=== PATIENT | male | born 1970 | race African-American/Black ===

== ENCOUNTER → 2017-01-03 | Outpatient (CLI) | payer OTHER ==
[~2017-01-03] MED LIST: BUSP15TA60 PO; HYDR1CAP2 PO; [UNRECOGNIZED DRUG - CODE] IM
[2017-01-04 08:19] LABS: VITAMIN D 25-HYDROXY (TOTAL) 9 ng/mL (30-100)
== END ==
LOC: LAB 13:14
PROVIDERS: ATTEND Psychiatry & Neurology Neurology
DX: G35 Multiple sclerosis (principal)
CPT/HCPCS: 36415; 82306; 82607

== ENCOUNTER 2018-02-01 12:47 | Emergency (ER) | payer OTHER ==
[~2018-02-01] VITALS: Ht 170.2 cm; Wt 68.0 kg
[2018-02-01 12:53] VITALS: BP 127/97
[2018-02-01 13:50] LABS: BASOPHILS % (AUTO) 0 % (0-10); EOSINOPHILS % (AUTO) 1 % (0-10); HEMATOCRIT 43 % (40-54); HEMOGLOBIN 14.7 G/DL (13.3-17.7); LYMPHOCYTES # (AUTO) 1.4 X 10^3 (1.0-4.0); LYMPHOCYTES % (AUTO) 40 % (12-44); MEAN CORPUSCULAR HEMOGLOBIN 31 PG (25-34); MEAN CORPUSCULAR HGB CONC 35 G/DL (32-36); MEAN CORPUSCULAR VOLUME 88 FL (80-99); MEAN PLATELET VOLUME 11.1 FL (7.4-10.4); MONOCYTES # (AUTO) 0.4 X 10^3 (0.0-1.0); MONOCYTES % (AUTO) 11 % (0-12); NEUTROPHILS # (AUTO) 1.7 X 10^3 (1.8-7.8); NEUTROPHILS % (AUTO) 48 % (42-75); PLATELET COUNT 164 10^3/uL (130-400); RED BLOOD COUNT 4.82 10^6/uL (4.35-5.85); RED CELL DISTRIBUTION WIDTH 12.6 % (10.0-14.5); WHITE BLOOD COUNT 3.6 10^3/uL (4.3-11.0)
--- NOTE | 2018-02-01 14:05 | ED General ---
General Chief Complaint: General Problems/Pain Stated Complaint: LIGHT-HEADED,DIZZY,NAUSEA Nursing Triage Note: TO ROOM AMB WITH OUT PROBLEM C/O BEING DIZZY FOR 1 WEEK AND NAUSEA,AND NUMBNES IN L HAND ON AND OFF FOR LAST YEAR. Nursing Sepsis Screen: No Definite Risk Source of Information: Patient Exam Limitations: No Limitations History of Present Illness Date Seen by Provider: Feb 01, 2018 Time Seen by Provider: 14:01 Initial Comments The patient is a 47-year-old black male who presents today with complaints of lightheadedness and dizziness and nausea. He believes his vision is somewhat effective as well. He is also troubled by numbness in the left arm. He has been treated for multiple sclerosis for several years. He takes injectable interferon on a weekly basis. He reports that when he is having more difficulty he tends to have more numbness and dysfunction in the left arm. He is also having some difficulty with vision at this time. He walks independently but his cemetery counselor states that he probably should use a walker for safety. He gets a portion of his treatment from [facility] [place] [facility]. Timing/Duration: 1 Week Associated Systoms: Headaches, Nausea/Vomiting, Weakness Allergies and Home Medications Allergies Coded Allergies: Omeprazole (Verified Allergy, Unknown, 12/24/05) Home Medications Buspirone HCl 15 Mg Tablet, 15 MG PO BID, (Reported) Interferon Beta-1A/Albumin 30 Mcg Kit, 30 MCG IM WEEK, (Reported) Patient Home Medication List Home Medication List Reviewed: Yes Review of Systems Constitutional: see HPI EENTM: blurred vision Respiratory: no symptoms reported Cardiovascular: no symptoms reported Gastrointestinal: no symptoms reported Genitourinary: no symptoms reported Musculoskeletal: muscle weakness Skin: no symptoms reported Psychiatric/Neurological: Pre-Existing Deficit Hematologic/Lymphatic: No Symptoms Reported Immunological/Allergic: no symptoms reported Past Sizzlzw-Crhpre-Atvrwc Hx Patient Social History Alcohol Use: Denies Use Recreational Drug Use: Yes (POT) Smoking Status: Never a Smoker Recent Foreign Travel: No Contact w/Someone Who Travel: No Recent Infectious Disease Expo: No Recent Hopitalizations: No Past Medical History Surgeries: No Respiratory: No Cardiac: No Neurological: Yes Multiple Sclerosis Reproductive Disorders: No Gastrointestinal: No Musculoskeletal: Yes Endocrine: No Cancer: No Psychosocial: Yes (MOOD DISORDER. ) Integumentary: No Blood Disorders: No Physical Exam Vital Signs Vital Signs - First Documented 02/01/18 12:53 Temp 97.2 Pulse 78 Resp 18 B/P (MAP) 127/97 (107) Pulse Ox 99 O2 Delivery Room Air Capillary Refill : Less Than 3 Seconds General Appearance: No Apparent Distress, WD/WN Eyes: Bilateral Eye Normal Inspection HEENT: Normal ENT Inspection Neck: Full Range of Motion, Normal Inspection, Non Tender, Supple Respiratory: Chest Non Tender, Lungs Clear, Normal Breath Sounds, No Accessory Muscle Use, No Respiratory Distress Cardiovascular: Regular Rate, Rhythm, No Edema, No Gallop, No JVD, No Murmur, Normal Peripheral Pulses Gastrointestinal: Normal Bowel Sounds, No Organomegaly, No Pulsatile Mass, Non Tender, Soft Back: Normal Inspection Neurologic/Psychiatric: Alert, Oriented x3, progressive assembler and fitter II-XII Norm as Tested Skin: Normal Color, Warm/Dry Comments Computer Support Analyst is 2+ and equal bilaterally. Alternating finger to thumb movements were equal bilaterally. Patellar reflexes were absent. Progress/Results/Core Measures Suspected Sepsis Recent Fever Within 48 Hours: No Infection Criteria Present: None New/Unexplained Altered Menta: No Sepsis Screen: No Definite Risk SIRS Temperature:97.2 Pulse: 78 Respiratory Rate: 18 Laboratory Tests 02/01/18 13:41: White Blood Count 3.6L Blood Pressure 127 /97 Mean: 107 Laboratory Tests 02/01/18 13:41: Creatinine 0.99, Platelet Count 164, Total Bilirubin 0.8 Results/Orders Lab Results Laboratory Tests Test 02/01/18 13:41 02/01/18 14:41 Range/Units White Blood Count 3.6 L 4.3-11.0 10^3/uL Red Blood Count 4.82 4.35-5.85 10^6/uL Hemoglobin 14.7 13.3-17.7 G/DL Hematocrit 43 40-54 % Mean Corpuscular Volume 88 80-99 FL Mean Corpuscular Hemoglobin 31 25-34 PG Mean Corpuscular Hemoglobin Concent 35 32-36 G/DL Red Cell Distribution Width 12.6 10.0-14.5 % Platelet Count 164 130-400 10^3/uL Mean Platelet Volume 11.1 H 7.4-10.4 FL Neutrophils (%) (Auto) 48 42-75 % Lymphocytes (%) (Auto) 40 12-44 % Monocytes (%) (Auto) 11 0-12 % Eosinophils (%) (Auto) 1 0-10 % Basophils (%) (Auto) 0 0-10 % Neutrophils # (Auto) 1.7 L 1.8-7.8 X 10^3 Lymphocytes # (Auto) 1.4 1.0-4.0 X 10^3 Monocytes # (Auto) 0.4 0.0-1.0 X 10^3 Eosinophils # (Auto) 0.0 0.0-0.3 10^3/uL Basophils # (Auto) 0.0 0.0-0.1 10^3/uL Sodium Level 140 135-145 MMOL/L Potassium Level 3.9 3.6-5.0 MMOL/L Chloride Level 107 98-107 MMOL/L Carbon Dioxide Level 24 21-32 MMOL/L Anion Gap 9 5-14 MMOL/L Blood Urea Nitrogen 11 7-18 MG/DL Creatinine 0.99 0.60-1.30 MG/DL Estimat Glomerular Filtration Rate > 60 BUN/Creatinine Ratio 11 Glucose Level 97 70-105 MG/DL Calcium Level 9.1 8.5-10.1 MG/DL Total Bilirubin 0.8 0.1-1.0 MG/DL Aspartate Amino Transf (AST/SGOT) 11 5-34 U/L Alanine Aminotransferase (ALT/SGPT) 6 0-55 U/L Alkaline Phosphatase 66 40-136 U/L Total Protein 7.1 6.4-8.2 GM/DL Albumin 4.2 3.2-4.5 GM/DL Serum Alcohol < 10 <10 MG/DL Urine Color YELLOW Urine Clarity CLEAR Urine pH 6 5-9 Urine Specific [place] 1.020 1.016-1.022 Urine Protein 1+ H NEGATIVE Urine Glucose (UA) NEGATIVE NEGATIVE Urine Ketones NEGATIVE NEGATIVE Urine Nitrite NEGATIVE NEGATIVE Urine Bilirubin NEGATIVE NEGATIVE Urine Urobilinogen 4 H NORMAL MG/DL Urine Leukocyte Esterase 1+ H NEGATIVE Urine RBC (Auto) NEGATIVE NEGATIVE Urine RBC RARE /HPF Urine WBC 0-2 /HPF Urine Squamous Epithelial Cells RARE /HPF Urine Renal Epithelial Cells NONE /HPF Urine Crystals NONE /LPF Urine Bacteria NEGATIVE /HPF Urine Casts PRESENT /LPF Urine Hyaline Casts RARE /LPF Urine Mucus MODERATE H /LPF Urine Culture Indicated NO Urine Opiates Screen NEGATIVE NEGATIVE Urine Oxycodone Screen NEGATIVE NEGATIVE Urine Methadone Screen NEGATIVE NEGATIVE Urine Propoxyphene Screen NEGATIVE NEGATIVE Urine Barbiturates Screen NEGATIVE NEGATIVE Ur Tricyclic Antidepressants Screen NEGATIVE NEGATIVE Urine Phencyclidine Screen NEGATIVE NEGATIVE Urine Amphetamines Screen NEGATIVE NEGATIVE Urine Methamphetamines Screen NEGATIVE NEGATIVE Urine Benzodiazepines Screen NEGATIVE NEGATIVE Urine Cocaine Screen NEGATIVE NEGATIVE Urine Cannabinoids Screen POSITIVE H NEGATIVE My Orders Orders - MAULIK HILLIARD MD Alcohol (02/01/18 13:00) Cbc With Automated Diff (02/01/18 13:00) Comprehensive Metabolic Panel (02/01/18 13:00) Drug Screen Stat (Urine) (02/01/18 13:00) Ua Culture If Indicated (02/01/18 13:00) Vital Signs/I&O 02/01/18 12:53 Temp 97.2 Pulse 78 Resp 18 B/P (MAP) 127/97 (107) Pulse Ox 99 O2 Delivery Room Air Capillary Refill : Less Than 3 Seconds Blood Pressure Mean: 107 Departure Communication (Admissions) Lab studies looked to be reasonably normal. I believe this to be a flare of his multiple sclerosis. Impression Primary Impression: flare of multiple sclerosis Disposition: HOME, SELF-CARE Condition: Stable/Unchanged Departure-Patient Inst. Decision time for Depature: 15:26 Referrals: NO,LOCAL PHYSICIAN (PCP) Primary Care Physician Add. Discharge Instructions: All discharge instructions reviewed with patient and/or family. Voiced understanding. Use Zofran as needed for nausea. Continue to observe symptoms. If no improvement see your provider. Scripts Ondansetron (Zofran Odt) 8 Mg Tab.rapdis 8 MG PO 4 times a day PRN for nausea, #10 TAB Prov: MAULIK HILLIARD MD 02/01/18 MAULIK HILLIARD MD Feb 01, 2018 14:05
[2018-02-01 14:12] LABS: ALANINE AMINOTRANSFERASE 6 U/L (0-55); ALBUMIN 4.2 GM/DL (3.2-4.5); ALKALINE PHOSPHATASE 66 U/L (40-136); BILIRUBIN,TOTAL 0.8 MG/DL (0.1-1.0); BUN/CREATININE RATIO 11; CALCIUM 9.1 MG/DL (8.5-10.1); CARBON DIOXIDE 24 MMOL/L (21-32); CHLORIDE 107 MMOL/L (98-107); CREATININE SERUM 0.99 MG/DL (0.60-1.30); GFR ESTIMATED > 60; GLUCOSE 97 MG/DL (70-105); POTASSIUM 3.9 MMOL/L (3.6-5.0); SODIUM 140 MMOL/L (135-145); TOTAL PROTEIN 7.1 GM/DL (6.4-8.2)
[2018-02-01 14:53] LABS: BILIRUBIN,URINE NEGATIVE (NEGATIVE); CLARITY,URINE CLEAR; COLOR,URINE YELLOW; GLUCOSE, URINE (UA) NEGATIVE (NEGATIVE); KETONES,URINE NEGATIVE (NEGATIVE); LEUKOCYTE ESTERASE ,URINE 1+ (NEGATIVE); NITRITE,URINE NEGATIVE (NEGATIVE); PH,URINE 6 (5-9); PROTEIN,URINE 1+ (NEGATIVE); UROBILINOGEN,URINE 4 MG/DL (NORMAL)
[2018-02-01 15:17] LABS: AMPHETAMINE SCREEN, URINE NEGATIVE (NEGATIVE); BACTERIA,URINE NEGATIVE /HPF; BARBITURATE SCREEN URINE NEGATIVE (NEGATIVE); BENZODIAZEPINES SCREEN URINE NEGATIVE (NEGATIVE); CANNABINOID SCREEN, URINE POSITIVE (NEGATIVE); COCAINE SCREEN URINE NEGATIVE (NEGATIVE); METHADONE STAT NEGATIVE (NEGATIVE); METHAMPHETAMINE SCREEN URINE S NEGATIVE (NEGATIVE); OPIATE SCREEN URINE NEGATIVE (NEGATIVE); OXYCODONE STAT NEGATIVE (NEGATIVE); PROPOXYPHENE STAT NEGATIVE (NEGATIVE); RBC,URINE RARE /HPF; TRICYCLIC ANTIDEPRESSANTS SCRE NEGATIVE (NEGATIVE); WBC,URINE 0-2 /HPF
[2018-02-01 15:18] LABS: HYALINE CASTS, URINE RARE /LPF; SQUAMOUS EPITHELIAL CELL,UR RARE /HPF
[2018-02-01] MEDS ORDERED: ONDA8TAB9 PO (15:28)
== END 2018-02-01 15:42 | disposition home or self-care (01) ==
LOC: EDUNIT# 12:47 → ER 12:50
DX: G35 Multiple sclerosis (principal); F99 Mental disorder, not otherwise specified; F12.90 Cannabis use, unspecified, uncomplicated; Z88.8 Allergy status to other drugs, medicaments and biological substances
CPT/HCPCS: 36415; 80053; 80306; 80320; 81000; 85025; 99282

== ENCOUNTER 2020-09-15 15:09 | Emergency (ER) | payer OTHER ==
[~2020-09-15] VITALS: Ht 170.2 cm; Wt 81.8 kg
[~2020-09-15 15:09] MED LIST changes: +BUTA1CAP45 PO; +MECL-149 PO; +ONDA4TAB8 PO; +ONDA8TAB9 PO; +PRD10T PO; +SCOP1PAT11 TD
--- NOTE | 2020-09-15 15:16 | ED Fall/Injury ---
General Stated Complaint: FALL Source: patient Exam Limitations: no limitations History of Present Illness Date Seen by Provider: Sep 15, 2020 Time Seen by Provider: 15:16 Initial Comments 49-year-old male presents following a fall. Patient fell hitting the road and had a syncope episode. He has a small abrasion/laceration on his posterior scalp. He has unknown time of loss of consciousness. Patient has a history of MS, admits to being noncompliant with medication with frequent bouts of dizziness. Patient reports he got dizzy before he fell. He denies any known chest pain, shortness of breath prior to the fall. No reports of fevers chills nausea or vomiting. Patient denies any other injury or pain. Patient had c- collar placed by EMS prior to arrival. He denies neck pain. Allergies and Home Medications Allergies Coded Allergies: omeprazole (Verified Allergy, Unknown, 12/24/05) Home Medications Buspirone HCl 15 Mg Tablet, 15 MG PO BID, (Reported) Butalb/Acetaminophen/Caffeine 1 Each Capsule, 1-2 EACH PO Q6H PRN for HEADACHE Prescribed by: MARIO GALARZA on 02/14/181953 Interferon Beta-1A/Albumin 30 Mcg Kit, 30 MCG IM WEEK, (Reported) Meclizine HCl 25 Mg Tablet, 25-50 MG PO Q6H Prescribed by: MARIO GALARZA on 02/14/181953 Ondansetron 8 Mg Tab.rapdis, 8 MG PO 4 times a day PRN for nausea Prescribed by: MAULIK HILLIARD on 02/01/18 1528 Ondansetron 4 Mg Tab.rapdis, 4 MG PO Q4H Prescribed by: MARIO GALARZA on 02/14/181953 Prednisone 10 Mg Tab, 40 MG PO DAILY Prescribed by: MARIO GALARZA on 02/14/181953 Scopolamine 1 Each Patch.td72, 1 EACH TD Q72 HOURS Prescribed by: MARIO GALARZA on 02/14/181953 Patient Home Medication List Home Medication List Reviewed: Yes (Frequent scopolamine which is another) Review of Systems Review of Systems Constitutional: No chills, No fever Eyes: Denies Blurred Vision, Denies Decreased Acuity Ears, Nose, Mouth, Throat: denies ear pain, denies throat pain Respiratory: No cough, No short of breath, No wheezing Cardiovascular: No chest pain, No palpitations Gastrointestinal: No abdominal pain, No diarrhea, No nausea, No vomiting Genitourinary: no symptoms reported Musculoskeletal: back pain Skin: see HPI Psychiatric/Neurological: No Symptoms Reported Past Alrkxpt-Tjonjp-Vsfgme Hx Past Med/Social Hx: Reviewed Nursing Past Med/Soc Hx Patient Social History Drug of Choice: THC 2nd Hand Smoke Exposure: Yes Recent Hopitalizations: No Past Medical History Surgeries: No Respiratory: No Cardiac: No Neurological: Yes Multiple Sclerosis Reproductive Disorders: No Gastrointestinal: No Musculoskeletal: Yes Endocrine: No HEENT: No (GLASSES) Cancer: No Psychosocial: Yes (MOOD DISORDER. ) Integumentary: No Blood Disorders: No Physical Exam Vital Signs Vital Signs - First Documented 09/15/20 15:12 Temp 36.6 Pulse 61 Resp 16 B/P (MAP) 153/124 (134) Pulse Ox 100 O2 Delivery Room Air Capillary Refill : Height, Weight, BMI Height: 5'7.00" Weight: 175lbs. oz. 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 nml as tested, no motor/sensory deficits, alert, normal mood/affect, oriented x 3 Skin: other (Small abrasion/laceration posterior scalp) [place] Coma Score Best Eye Response: (4) Open Spontaneously Best Verbal Response: (5) Oriented Best Motor Response: (6) Obeys Commands Progress/Results/Core Measures Results/Orders Lab Results Laboratory Tests Test 09/15/20 15:20 Range/Units White Blood Count 4.6 4.3-11.0 10^3/uL Red Blood Count 4.66 4.30-5.52 10^6/uL Hemoglobin 14.0 13.3-17.7 g/dL Hematocrit 42 40-54 % Mean Corpuscular Volume 90 80-99 fL Mean Corpuscular Hemoglobin 30 25-34 pg Mean Corpuscular Hemoglobin Concent 33 32-36 g/dL Red Cell Distribution Width 12.7 10.0-14.5 % Platelet Count 170 130-400 10^3/uL Mean Platelet Volume 11.1 9.0-12.2 fL Immature Granulocyte % (Auto) 0 % Neutrophils (%) (Auto) 54 42-75 % Lymphocytes (%) (Auto) 34 12-44 % Monocytes (%) (Auto) 11 0-12 % Eosinophils (%) (Auto) 0 0-10 % Basophils (%) (Auto) 0 0-10 % Neutrophils # (Auto) 2.5 1.8-7.8 10^3/uL Lymphocytes # (Auto) 1.6 1.0-4.0 10^3/uL Monocytes # (Auto) 0.5 0.0-1.0 10^3/uL Eosinophils # (Auto) 0.0 0.0-0.3 10^3/uL Basophils # (Auto) 0.0 0.0-0.1 10^3/uL Immature Granulocyte # (Auto) 0.0 0.0-0.1 10^3/uL Sodium Level 138 135-145 MMOL/L Potassium Level 4.3 3.6-5.0 MMOL/L Chloride Level 103 98-107 MMOL/L Carbon Dioxide Level 26 21-32 MMOL/L Anion Gap 9 5-14 MMOL/L Blood Urea Nitrogen 11 7-18 MG/DL Creatinine 1.06 0.60-1.30 MG/DL Estimat Glomerular Filtration Rate > 60 BUN/Creatinine Ratio 10 Glucose Level 91 70-105 MG/DL Calcium Level 8.9 8.5-10.1 MG/DL Corrected Calcium 8.8 8.5-10.1 MG/DL Total Bilirubin 0.5 0.1-1.0 MG/DL Aspartate Amino Transf (AST/SGOT) 15 5-34 U/L Alanine Aminotransferase (ALT/SGPT) 8 0-55 U/L Alkaline Phosphatase 69 40-136 U/L Troponin I < 0.028 <0.028 NG/ML Total Protein 7.1 6.4-8.2 GM/DL Albumin 4.1 3.2-4.5 GM/DL My Orders Orders - MAURICE,JAZLYN L DO Ct Head/Cervical Spine Wo (09/15/20 15:16) Dipht,Pertuss(Acell),Tet Adult (Boostrix (09/15/20 15:30) Ekg Tracing (1/25/21 15:16) Monitor-Rhythm Ecg Trace Only (09/15/20 15:16) Cbc With Automated Diff (09/15/20 15:16) Comprehensive Metabolic Panel (09/15/20 15:16) Troponin I (09/15/20 15:16) Medications Given in ED Current Medications Medications Dose Ordered Sig/Farhad Route Start Time Stop Time Status Last Admin Dose Admin Diphtheria/ Tetanus/Acell Pertussis 0.5 ml ONCE ONCE IM 09/15/20 15:30 09/15/20 15:31 DC 09/15/20 16:36 0.5 ML Vital Signs/I&O 09/15/20 09/15/20 15:12 15:12 Temp 36.6 36.6 Pulse 61 61 Resp 16 16 B/P (MAP) 153/124 (134) Pulse Ox 100 100 O2 Delivery Room Air Room Air Progress Progress Note : Time: 16:44 Progress Note Patient with known disease Vera's with occasional falls from his MS that he does not treat. When asked why he does not treat it he states because he does not like shots. Patient likely had a fall given a brief loss of consciousness right after his fall. CT head and cervical spine were negative. C-spine was cleared following CT that was negative with no pain with palpation. Patient to be discharged home. Recommended he start trying to take better care of his MS. Patient stable at discharge Initial ECG Impression Date: Sep 15, 2020 Initial ECG Impression Time: 15:27 Initial ECG Rate: 67 Initial ECG Rhythm: Normal Sinus Initial ECG Intervals: Normal Initial ECG Impression: Normal Comment no acute abnormalities Departure Impression Primary Impression: Head injury, acute, with loss of consciousness Qualified Codes: S06.9X9A - Unspecified intracranial injury with loss of consciousness of unspecified duration, initial encounter Disposition: 01 HOME, SELF-CARE Condition: Stable Departure-Patient Inst. Referrals: NO,LOCAL PHYSICIAN (PCP/Family) Primary Care Physician Patient Instructions: Head Injury Observation (DC), Minor Head Injury, Adult ED Add. Discharge Instructions: Tylenol or ibuprofen as needed for pain Follow-up with your primary care provider for continued management of your MS JAZLYN MAURICE DO Sep 15, 2020 15:16
[2020-09-15 15:28] LABS: BASOPHILS % (AUTO) 0 % (0-10); EOSINOPHILS % (AUTO) 0 % (0-10); HEMATOCRIT 42 % (40-54); LYMPHOCYTES # (AUTO) 1.6 10^3/uL (1.0-4.0); LYMPHOCYTES % (AUTO) 34 % (12-44); MEAN CORPUSCULAR HEMOGLOBIN 30 pg (25-34); MEAN CORPUSCULAR HGB CONC 33 g/dL (32-36); MEAN CORPUSCULAR VOLUME 90 fL (80-99); MEAN PLATELET VOLUME 11.1 fL (9.0-12.2); MONOCYTES # (AUTO) 0.5 10^3/uL (0.0-1.0); MONOCYTES % (AUTO) 11 % (0-12); NEUTROPHILS # (AUTO) 2.5 10^3/uL (1.8-7.8); NEUTROPHILS % (AUTO) 54 % (42-75); PLATELET COUNT 170 10^3/uL (130-400); WHITE BLOOD COUNT 4.6 10^3/uL (4.3-11.0)
[2020-09-15] MEDS ORDERED: TETANUS,DIPTH,PERTUSS P/F (BOOSTRIX) 0.5 ML VIAL IM ONE (15:30)
[2020-09-15 15:38] LABS: ALBUMIN 4.1 GM/DL (3.2-4.5); CHLORIDE 103 MMOL/L (98-107); POTASSIUM 4.3 MMOL/L (3.6-5.0); SODIUM 138 MMOL/L (135-145)
[2020-09-15 15:39] LABS: CALCIUM 8.9 MG/DL (8.5-10.1)
[2020-09-15 15:40] LABS: GLUCOSE 91 MG/DL (70-105)
[2020-09-15 15:41] LABS: TOTAL PROTEIN 7.1 GM/DL (6.4-8.2)
[2020-09-15 15:42] LABS: BILIRUBIN,TOTAL 0.5 MG/DL (0.1-1.0); CARBON DIOXIDE 26 MMOL/L (21-32)
[2020-09-15 15:44] LABS: ALKALINE PHOSPHATASE 69 U/L (40-136); CREATININE SERUM 1.06 MG/DL (0.60-1.30); GFR ESTIMATED > 60
[2020-09-15 15:45] LABS: BUN/CREATININE RATIO 10
[2020-09-15 15:47] LABS: ALANINE AMINOTRANSFERASE 8 U/L (0-55)
--- NOTE | 2020-09-15 16:00 | Diagnostic Imaging Report ---
PROCEDURE: CT head and CT cervical spine without contrast. TECHNIQUE: Multiple contiguous axial images were obtained through the brain and cervical spine without the use of intravenous contrast. Sagittal and coronal reformations through the cervical spine were then performed. Auto Exposure Controls were utilized during the CT exam to meet ALARA standards for radiation dose reduction. DATE: September 15, 2020. COMPARISON: CT head February 14, 2018. MRI brain February 12, 2011. MR cervical spine February 12, 2011. INDICATION: 49-year-old male, dizziness, and syncope. Hit back of head. Head and neck pain. FINDINGS: There is proportional prominence of the ventricles and additional CSF spaces, consistent with moderate cerebral volume loss. There is no mass effect or midline shift. There is no acute intracranial hemorrhage. There is no abnormal extra-axial fluid collection. There is a very small amount of fluid layering in the left maxillary sinus. There is ankylosis across the left and right C2-C3 facet articulations. There is no identified facet joint subluxation or dislocation. There is no asymmetric widening of the cervical disc spaces. There is no prominent prevertebral soft tissue swelling. There is no identified acute fracture of the cervical spine. The cervical disc heights are well preserved. CT is limited for assessment of disc pathology as well as additional nonbony causes of pathology in the spinal canal. There is no pronounced facet arthropathy. The visualized portions of the lung apices are clear. IMPRESSION: 1. No identified acute intracranial abnormality. 2. Moderate cerebral volume loss. 3. Very small amount of fluid layering in the left maxillary sinus. Recommend correlation clinically for possibility of acute sinusitis. 4. No identified acute abnormality of the cervical spine. Dictated by: Dictated on workstation # [id number]
[2020-09-15 16:55] VITALS: BP 142/98
== END 2020-09-15 16:55 | disposition home or self-care (01) ==
LOC: EDUNIT# 15:09 → ER 15:12
DX: S01.01XA Laceration without foreign body of scalp, initial encounter (principal); S06.9X9A Unspecified intracranial injury with loss of consciousness of unspecified duration, initial encounter; Z77.22 Contact with and (suspected) exposure to environmental tobacco smoke (acute) (chronic); Z23 Encounter for immunization; Z88.8 Allergy status to other drugs, medicaments and biological substances; Z79.52 Long term (current) use of systemic steroids; W22.8XXA Striking against or struck by other objects, initial encounter
CPT/HCPCS: 36415; 70450; 72125; 80053; 84484; 85025; 90715; 93005; 93041

== ENCOUNTER 2022-01-31 08:32 | Inpatient (IN) | payer OTHER ==
[~2022-01-31] VITALS: Ht 170.1 cm; Wt 103.0 kg
[~2022-01-31 08:32] MED LIST changes: +SCOP1PAT10 TD; -SCOP1PAT11 TD
--- NOTE | 2022-01-31 08:42 | ED General ---
General Chief Complaint: General Problems/Pain Stated Complaint: TROUBLES WALKING Source of Information: Patient Exam Limitations: No Limitations History of Present Illness Date Seen by Provider: Jan 31, 2022 Time Seen by Provider: 08:33 Initial Comments Patient to the ER by EMS from home with chief complaint he moved into his son's house few weeks ago for help with his MS and his son noted he had not gotten off the couch all day yesterday. He states he had a bowel movement that was normal, formed yesterday. No dysuria cough, fever, chills, nausea, malaise. When he could not get up to even get his pants on this morning his son called 911 for help. His son was not able to transport him to the ER. He does not answer many questions and as such is a difficult historian. He is not accompanied by family. EMS states his blood sugar is 131 and they could not find a list of any medications or empty pill bottles to bring with him. Patient states he has not been on his medicines for some time. Unclear who his primary care provider is. Patient was seen for syncopal fall about a year ago and at that time it was also mentioned that he was not pursuing treatment of his MS. Patient was admitted in the past by [facility]. Allergies and Home Medications Allergies Coded Allergies: omeprazole (Verified Allergy, Unknown, 12/24/05) Patient Home Medication List Home Medication List Reviewed: Yes Buspirone HCl (Buspirone HCl) 15 Mg Tablet, 15 MG PO BID, (Reported) Entered as Reported by: ALFRED SOLER on 03/10/161750 Butalb/Acetaminophen/Caffeine (Esgic Capsule) 1 Each Capsule, 1-2 EACH PO Q6H PRN for HEADACHE Prescribed by: MARIO GALARZA on 02/14/181953 Interferon Beta-1A/Albumin (Avonex Admin Pack 30 Mcg Vl) 30 Mcg Kit, 30 MCG IM WEEK, (Reported) Entered as Reported by: ALFRED SOLER on 03/10/161750 Meclizine HCl (Meclizine HCl) 25 Mg Tablet, 25-50 MG PO Q6H Prescribed by: MARIO GALARZA on 02/14/181953 Ondansetron (Zofran Odt) 8 Mg Tab.rapdis, 8 MG PO 4 times a day PRN for nausea Prescribed by: MAULIK HILLIARD on 02/01/18 1528 Ondansetron (Zofran Odt) 4 Mg Tab.rapdis, 4 MG PO Q4H Prescribed by: MARIO GALARZA on 02/14/181953 Prednisone (Prednisone) 10 Mg Tab, 40 MG PO DAILY Prescribed by: MARIO GALARZA on 02/14/181953 Scopolamine (Transderm-Scop) 1 Each Patch.td72, 1 EACH TD Q72 HOURS Prescribed by: MARIO GALARZA on 02/14/181953 Review of Systems Review of Systems Constitutional: No chills, No fever; malaise EENTM: No ear discharge, No ear pain Respiratory: No cough, No short of breath Cardiovascular: No edema, No palpitations Gastrointestinal: No abdominal pain, No constipation (Bowel movement yesterday), No diarrhea, No nausea Genitourinary: No discharge, No dysuria Musculoskeletal: No back pain, No joint pain All Other Systems Reviewed Negative Unless Noted: Yes Past Bujsbmb-Ymfvyd-Yfobto Hx Patient Social History Tobacco Use?: No Use of E-Cig and/or Vaping dev: No Past Medical History Surgeries: No Respiratory: No Cardiac: No Neurological: Yes Multiple Sclerosis Reproductive Disorders: No Gastrointestinal: No Musculoskeletal: Yes Endocrine: No HEENT: No (GLASSES) Cancer: No Psychosocial: Yes (MOOD DISORDER. ) Integumentary: No Blood Disorders: No Physical Exam-Suspected Sepsis Physical Exam Vital Signs Vital Signs - First Documented Capillary Refill : Height, Weight, BMI Height: 5'7.00" Weight: 175lbs. oz. 79.259042il; 28.00 BMI Method:Estimated General Appearance: Chronically ill, Mild Distress Eyes: Bilateral Eye Normal Inspection, Bilateral Eye PERRL, Bilateral Eye EOMI HEENT: PERRL/EOMI, TMs Normal, Normal ENT Inspection, Pharynx Normal, Moist Mucous Membranes Neck: Full Range of Motion, Normal Inspection, Non Tender Respiratory: Lungs Clear, Normal Breath Sounds, No Accessory Muscle Use, No Respiratory Distress Cardiovascular: Regular Rate, Rhythm, No Edema, Normal Peripheral Pulses Gastrointestinal: Normal Bowel Sounds, Non Tender, Soft Extremity: Normal Capillary Refill, Normal Inspection, No Pedal Edema Neurologic/Psychiatric: Alert, No Motor/Sensory Deficits; No Normal Mood/Affect (Depressed affect, slow to answer); supply planner II-XII Norm as Tested, Other (Person and place but does not answer to time or situation appropriately) Skin: normal color, warm/dry (Warm to touch) Focused Exam Lactate Level 01/31/22 08:50: Lactic Acid Level 1.59 Lactic Acid Level Progress/Results/Core Measures Suspected Sepsis SIRS Temperature: Pulse: Respiratory Rate: Laboratory Tests 01/31/22 08:50: White Blood Count 5.8 Blood Pressure / Mean: 01/31/22 08:50: Lactic Acid Level 1.59 Laboratory Tests 01/31/22 08:50: INR Comment 1.1, Platelet Count 131 01/31/22 09:10: Creatinine 1.14, Total Bilirubin 0.8 Results/Orders Lab Results Laboratory Tests Test 01/31/22 08:50 01/31/22 09:00 01/31/22 09:10 01/31/22 09:36 Range/Units White Blood Count 5.8 4.3-11.0 10^3/uL Red Blood Count 4.92 4.30-5.52 10^6/uL Hemoglobin 14.9 13.3-17.7 g/dL Hematocrit 44 40-54 % Mean Corpuscular Volume 88 80-99 fL Mean Corpuscular Hemoglobin 30 25-34 pg Mean Corpuscular Hemoglobin Concent 34 32-36 g/dL Red Cell Distribution Width 12.4 10.0-14.5 % Platelet Count 131 130-400 10^3/uL Mean Platelet Volume 11.9 9.0-12.2 fL Immature Granulocyte % (Auto) 0 % Neutrophils (%) (Auto) 84 H 42-75 % Lymphocytes (%) (Auto) 6 L 12-44 % Monocytes (%) (Auto) 10 0-12 % Eosinophils (%) (Auto) 0 0-10 % Basophils (%) (Auto) 0 0-10 % Neutrophils # (Auto) 4.9 1.8-7.8 10^3/uL Lymphocytes # (Auto) 0.4 L 1.0-4.0 10^3/uL Monocytes # (Auto) 0.6 0.0-1.0 10^3/uL Eosinophils # (Auto) 0.0 0.0-0.3 10^3/uL Basophils # (Auto) 0.0 0.0-0.1 10^3/uL Immature Granulocyte # (Auto) 0.0 0.0-0.1 10^3/uL Neutrophils % (Manual) 80 % Lymphocytes % (Manual) 9 % Monocytes % (Manual) 7 % Band Neutrophils 4 % Clumped Platelets SLIGHT Percent Immature Platelet Fraction 9.4 H 0.0-7.6 % Blood Morphology Comment NORMAL Prothrombin Time 14.5 12.2-14.7 SEC INR Comment 1.1 0.8-1.4 Activated Partial Thromboplast Time 31 24-35 SEC D-Dimer 0.82 H 0.00-0.49 UG/ML Lactic Acid Level 1.59 0.50-2.00 MMOL/L Procalcitonin 0.07 <0.10 NG/ML Influenza Type A (RT-PCR) Not Detected Not Detecte Influenza Type B (RT-PCR) Not Detected Not Detecte SARS-CoV-2 RNA (RT-PCR) Detected H Not Detecte Sodium Level 135 135-145 MMOL/L Potassium Level 4.2 3.6-5.0 MMOL/L Chloride Level 102 98-107 MMOL/L Carbon Dioxide Level 20 L 21-32 MMOL/L Anion Gap 13 5-14 MMOL/L Blood Urea Nitrogen 10 7-18 MG/DL Creatinine 1.14 0.60-1.30 MG/DL Estimat Glomerular Filtration Rate 77 BUN/Creatinine Ratio 9 Glucose Level 114 H 70-105 MG/DL Calcium Level 8.7 8.5-10.1 MG/DL Corrected Calcium 8.8 8.5-10.1 MG/DL Total Bilirubin 0.8 0.1-1.0 MG/DL Aspartate Amino Transf (AST/SGOT) 20 5-34 U/L Alanine Aminotransferase (ALT/SGPT) 12 0-55 U/L Alkaline Phosphatase 79 40-136 U/L Ammonia 25 11-32 UMOL/L Total Protein 7.2 6.4-8.2 GM/DL Albumin 3.9 3.2-4.5 GM/DL Serum Alcohol < 10 <10 MG/DL POC pH (Misc Panel) 7.413 H 7.310-7.410 POC Base Excess (Misc Panel) -7 L -2-3 mmol/L POC pO2 (Misc Panel) 86 80-105 mmHg POC pCO2 (Misc Panel) 27.5 L 41.0-51.0 mmHg POC HCO3 (Misc Panel) 17.6 *L 23.0-28.0 mmol/L POC Blood Gas Total CO2 Calc 18 L 24-29 mmol/L Bedside Bl Gas O2 Saturation (Calc) 97 95-98 % Bedside Lactic Acid 0.36-1.25 mmol/L Test 01/31/22 10:30 Range/Units Urine Color YELLOW Urine Clarity CLEAR Urine pH 5.5 5-9 Urine Specific [place] >=1.030 1.016-1.022 Urine Protein NEGATIVE NEGATIVE Urine Glucose (UA) NEGATIVE NEGATIVE Urine Ketones TRACE H NEGATIVE Urine Nitrite NEGATIVE NEGATIVE Urine Bilirubin NEGATIVE NEGATIVE Urine Urobilinogen 0.2 < = 1.0 MG/DL Urine Leukocyte Esterase NEGATIVE NEGATIVE Urine RBC (Auto) 1+ H NEGATIVE Urine RBC 2-5 H /HPF Urine WBC 0-2 /HPF Urine Crystals NONE /LPF Urine Bacteria TRACE /HPF Urine Casts NONE /LPF Urine Mucus SMALL H /LPF Urine Culture Indicated CULTURE PENDING Urine Opiates Screen NEGATIVE NEGATIVE Urine Oxycodone Screen NEGATIVE NEGATIVE Urine Methadone Screen NEGATIVE NEGATIVE Urine Propoxyphene Screen NEGATIVE NEGATIVE Urine Barbiturates Screen NEGATIVE NEGATIVE Ur Tricyclic Antidepressants Screen NEGATIVE NEGATIVE Urine Phencyclidine Screen NEGATIVE NEGATIVE Urine Amphetamines Screen NEGATIVE NEGATIVE Urine Methamphetamines Screen NEGATIVE NEGATIVE Urine Benzodiazepines Screen NEGATIVE NEGATIVE Urine Cocaine Screen NEGATIVE NEGATIVE Urine Cannabinoids Screen POSITIVE H NEGATIVE My Orders Orders - MARIO CALIXTO Cbc With Automated Diff (01/31/22 08:39) Blood Culture (01/31/22 08:39) Sputum Culture (01/31/22 08:39) Urinalysis (01/31/22 08:39) Urine Culture (01/31/22 08:39) Protime With Inr (01/31/22 08:39) Partial Thromboplastin Time (01/31/22 08:39) Chest 1 View, Ap/Pa Only (01/31/22 08:39) Ed Iv/Invasive Line Start (01/31/22 08:39) Ed Iv/Invasive Line Start (01/31/22 08:39) Vital Signs Adult Sepsis Patie Q15M (01/31/22 08:39) O2 (01/31/22 08:39) Remove Rings In Anticipation O (01/31/22 08:39) Lactic Acid Analyzer (01/31/22 08:39) Influenza A And B By Pcr (01/31/22 08:39) Ns Iv 1000 Ml (Sodium Chloride 0.9%) (01/31/22 08:45) Cefepime Injection (Maxipime Injection) (01/31/22 08:45) Covid 19 Inhouse Test (01/31/22 08:39) Ed Iv/Invasive Line Start (01/31/22 08:39) Ns Iv 1000 Ml (Sodium Chloride 0.9%) (01/31/22 08:45) Ammonia (01/31/22 09:09) Drug Screen Stat (Urine) (01/31/22 09:09) Alcohol (01/31/22 09:09) Manual Differential (01/31/22 08:50) Acetaminophen Tablet (Tylenol Tablet) (01/31/22 09:45) Comprehensive Metabolic Panel (01/31/22 UNK) Ct Head Wo (01/31/22 10:07) Ct Angio Chest W (01/31/22 10:07) Fibrin Degradation Products (01/31/22 10:09) Procalcitonin (Pct) (01/31/22 10:09) Iohexol Injection (Omnipaque 350 Mg/Ml 1 (01/31/22 10:30) Received Contrast (Hold Metformin- Contr (01/31/22 10:30) Ns (Ivpb) (Sodium Chloride 0.9% Ivpb Bag (01/31/22 10:30) Sodium Chloride Flush (Catheter Flush Sy (01/31/22 10:30) Lidocaine 2% (Urojet) (Xylocaine Urojet) (01/31/22 10:30) Catheter(Urinary) Insert & Ass 03,15 (01/31/22 10:26) Lidocaine 2% (Urojet) (Xylocaine Urojet) (01/31/22 10:26) Ed Admission (Communication) (01/31/22 11:55) Medications Given in ED Current Medications Medications Dose Ordered Sig/Farhad Route Start Time Stop Time Status Last Admin Dose Admin Acetaminophen 1,000 mg ONCE ONCE PO 01/31/22 09:45 01/31/22 09:46 DC 01/31/22 09:45 1,000 MG Cefepime HCl 1000 mg/Sodium Chloride 50 ml @ 100 mls/hr ONCE ONCE IV 01/31/22 08:45 01/31/22 09:14 DC 01/31/22 09:36 100 MLS/HR Iohexol 100 ml ONCE ONCE IV 01/31/22 10:30 01/31/22 10:31 DC 01/31/22 10:57 72 ML Lidocaine HCl 10 ml STK-MED ONCE .ROUTE 01/31/22 10:26 01/31/22 10:29 DC 01/31/22 10:27 10 ML Sodium Chloride 100 ml ONCE ONCE IV 01/31/22 10:30 01/31/22 10:31 DC 01/31/22 10:57 80 ML Vital Signs/I&O 01/31/22 01/31/22 01/31/22 08:45 08:45 09:45 Temp 38.2 38.2 38.2 Pulse 88 88 Resp 16 16 B/P (MAP) 125/85 (98) 125/85 Pulse Ox 97 97 O2 Delivery Room Air Capillary Refill : Progress Note #1: Time: 09:08 Progress Note The patient appears delirious and has a fever. We are initiating a septic work- up looking for a source. We will also collect some labs including an ABG looking for explanation of intoxication, delirium etc. Progress Note #2: Time: 10:26 Progress Note ABG shows more of a relative borderline respiratory alkalosis with low CO2 yet the oxygen PaO2 is on the lower end of normal. He does not appear to be in pain so suspect he is relative hypoxemia so we ordered a CT angiogram. The patient is quite delirious and struggles to answer questions. We will plan to put a Sherman catheter in so that we can get a good urine specimen. Nursing staff notes malodorous urine. Progress Note #3: Time: 12:54 Progress Note Discussed case with the son who is grateful for his care. Questions were answered. Diagnostic Imaging Diagonstic Imaging: Xray Plain Films/CT/US/NM/MRI: chest Comments [facility] [place] NAME: ROSA PEREZ [facility] REC#: [id number] PT STATUS: REG ER : 1970 PHYSICIAN: MARIO CALIXTO MD ADMIT DATE: 01/31/22/ER Signed Date of Exam:01/31/22 CHEST 1 VIEW, AP/PA ONLY EXAMINATION: Chest radiograph, portable AP view. DATE: 01/31/2022 10:08 AM INDICATION: 51-year-old male, COVID positive. Sepsis. COMPARISON: Chest radiographs February 14, 2018. FINDINGS: Heart size and mediastinal contours are unchanged. There is no identified pneumothorax. There is no large pleural effusion. There is no identified focal airspace consolidation. IMPRESSION: 1. No identified acute cardiopulmonary abnormality. Dictated by: Dictated on workstation # [id number] Dict: 01/31/22 1011 Trans: 01/31/22 1016 [facility] [id number] Interpreted by: MEREDITH SCHUMACHER MD Electronically signed by: MEREDITH SCHUMACHER MD 01/31/22 1016 Reviewed: Reviewed by La Diagonstic Imaging: CT Plain Films/CT/US/NM/MRI: chest Comments [facility] [place] NAME: ROSA PEREZ [facility] REC#: [id number] PT STATUS: REG ER : 1970 PHYSICIAN: MARIO CALIXTO MD ADMIT DATE: 01/31/22/ER Signed Date of Exam:01/31/22 CT HEAD WO PROCEDURE: CT head without contrast. TECHNIQUE: Multiple contiguous axial images were obtained through the brain without the use of intravenous contrast. Auto Exposure Controls were utilized during the CT exam to meet ALARA standards for radiation dose reduction. DATE: January 31, 2022. COMPARISON: CT head and cervical spine September 15, 2020. INDICATION: 51-year-old male, difficulty walking. Encephalopathy. FINDINGS: There is no identified skull fracture. The visualized portions of the paranasal sinuses, mastoid air cells, and middle ears are well-aerated. There is mild proportional prominence of the ventricles and additional CSF spaces consistent with mild cerebral volume loss. There is no mass effect or midline shift. There is no acute intracranial hemorrhage. There is no abnormal extra-axial fluid collection. The visualized portions of the paranasal sinuses, mastoid air cells and middle ears are well aerated. IMPRESSION: 1. No identified acute intracranial abnormality. 2. Mild cerebral volume loss. Dictated by: Dictated on workstation # [id number] Dict: 01/31/22 1101 Trans: 01/31/22 1121 [facility] [id number] Interpreted by: MEREDITH SCHUMACHER MD Electronically signed by: MEREDITH SCHUMACHER MD 01/31/22 1121 Reviewed: Reviewed by Me Diagonstic Imaging: CT (a) Plain Films/CT/US/NM/MRI: chest Comments [facility] [place] NAME: ROSA PEREZ [facility] REC#: [id number] PT STATUS: REG ER : 1970 PHYSICIAN: MARIO CALIXTO MD ADMIT DATE: 01/31/22/ER Draft Date of Exam:01/31/22 CT ANGIO CHEST W PROCEDURE: CT angiography of the chest with contrast. TECHNIQUE: Multiple contiguous axial images were obtained through the chest after uneventful bolus administration of intravenous contrast. 3D reconstructed CTA MIP acquisitions were also performed. Auto Exposure Controls were utilized during the CT exam to meet ALARA standards for radiation dose reduction. INDICATION: Positive for COVID, respiratory distress. FINDINGS: There are no prior CTA chest examinations available for comparison. The plain film examination of the chest performed prior to the study failed to show any sign of an acute abnormality. There is no defect within the main pulmonary arteries to indicate a pulmonary embolus. The branches of the pulmonary arteries to the upper and lower lobes are not fully opacified and difficult to assess. There are several defects within the branches, but these are more likely due to a flow phenomenon than to pulmonary emboli. The aorta is not abnormally dilated, and there is no sign of a dissection. The heart size is within normal limits. There are mild chronic changes present. There is no sign of failure, pneumonia, or pleural effusion. There is no mediastinal or hilar adenopathy. The thyroid gland where visualized is unremarkable. The sections through the upper abdomen fail to show any sign of an acute abnormality. The bone windows are unremarkable for a fracture or for a destructive lesion. IMPRESSION: 1. The small defects within the branches of the pulmonary arteries are more likely due to a flow phenomenon than to pulmonary emboli. There is no evidence for a pulmonary embolus at this time. 2. There is no acute cardiopulmonary abnormality noted otherwise. Dictated on workstation # [id number] Dict: 01/31/22 1103 Trans: 01/31/22 1119 [id number] Interpreted by: CHUCKIE CORTEZ MD Electronically signed by: Reviewed: Reviewed by Me Departure Communication (Admissions) Time/Spoke to Admitting Phy: 11:[address] Peña and she agrees to admit the patient to cardiac stepdown with 2 L oxygen and supportive care. She will put in queued orders. Impression Primary Impression: COVID-19 Additional Impressions: Hypoxia Delirium due to another medical condition Multiple sclerosis Disposition: ADMITTED INPATIENT Condition: Stable Admissions Decision to Admit Reason: Admit from ER (General) Decision to Admit/Date: Jan 31, 2022 Time/Decision to Admit Time: 11:40 Departure-Patient Inst. Referrals: NO,LOCAL PHYSICIAN (PCP/Family) Primary Care Physician MARIO CALIXTO Jan 31, 2022 08:42
[2022-01-31] MEDS ORDERED: NS IV 1000 ML 1,000 ML IV SCH ×2 (08:45)
[2022-01-31] MEDS ORDERED: CEFEPIME INJECTION 1,000 MG in NS (IVPB) 50 ML IV ONE (08:45)
[2022-01-31 09:06] LABS: EOSINOPHILS % (AUTO) 0 % (0-10); HEMOGLOBIN 14.9 g/dL (13.3-17.7)
[2022-01-31 09:08] LABS: BASOPHILS % (AUTO) 0 % (0-10); HEMATOCRIT 44 % (40-54); LYMPHOCYTES # (AUTO) 0.4 10^3/uL (1.0-4.0); LYMPHOCYTES % (AUTO) 6 % (12-44); MEAN CORPUSCULAR HEMOGLOBIN 30 pg (25-34); MEAN CORPUSCULAR HGB CONC 34 g/dL (32-36); MEAN CORPUSCULAR VOLUME 88 fL (80-99); MEAN PLATELET VOLUME 11.9 fL (9.0-12.2); MONOCYTES # (AUTO) 0.6 10^3/uL (0.0-1.0); MONOCYTES % (AUTO) 10 % (0-12); NEUTROPHILS # (AUTO) 4.9 10^3/uL (1.8-7.8); NEUTROPHILS % (AUTO) 84 % (42-75); PLATELET COUNT 131 10^3/uL (130-400); WHITE BLOOD COUNT 5.8 10^3/uL (4.3-11.0)
[2022-01-31 09:21] LABS: INR 1.1 (0.8-1.4); PROTHROMBIN TIME PATIENT 14.5 SEC (12.2-14.7)
[2022-01-31 09:45] LABS: BAND NEUTROPHILS 4 %; LYMPHOCYTES % (MANUAL) 9 %; MONOCYTES % (MANUAL) 7 %; NEUTROPHILS % (MANUAL) 80 %
[2022-01-31] MEDS ORDERED: ACETAMINOPHEN 500 MG TAB (TYLENOL) PO ONE (09:45)
[2022-01-31 09:46] LABS: PLATELET CLUMPS SLIGHT; RBC MORPH NORMAL
[2022-01-31 09:48] LABS: AMMONIA 25 UMOL/L (11-32)
[2022-01-31 10:01] LABS: ALBUMIN 3.9 GM/DL (3.2-4.5); BILIRUBIN,TOTAL 0.8 MG/DL (0.1-1.0); CALCIUM 8.7 MG/DL (8.5-10.1); CREATININE SERUM 1.14 MG/DL (0.60-1.30); POTASSIUM 4.2 MMOL/L (3.6-5.0); TOTAL PROTEIN 7.2 GM/DL (6.4-8.2)
--- NOTE | 2022-01-31 10:13 | Diagnostic Imaging Report ---
EXAMINATION: Chest radiograph, portable AP view. DATE: 01/31/2022 10:08 AM INDICATION: 51-year-old male, COVID positive. Sepsis. COMPARISON: Chest radiographs February 14, 2018. FINDINGS: Heart size and mediastinal contours are unchanged. There is no identified pneumothorax. There is no large pleural effusion. There is no identified focal airspace consolidation. IMPRESSION: 1. No identified acute cardiopulmonary abnormality. Dictated by: Dictated on workstation # [id number]
[2022-01-31] MEDS ORDERED: LIDOCAINE UROJET 2% GEL 10 ML PKG ONE (10:26)
[2022-01-31] MEDS ORDERED: NS 100 ML (IVPB) BAG IV ONE (10:30)
[2022-01-31] MEDS ORDERED: LIDOCAINE UROJET 2% GEL 10 ML PKG TOP ONE ×2 (10:30→13:30)
[2022-01-31] MEDS ORDERED: HOLD METFORMIN - RECEIVED CONTRAST 20 ML VIAL IV SCH (10:30)
[2022-01-31] MEDS ORDERED: IOHEXOL 350 MG/ML 100 ML (OMNIPAQUE 350) VIAL IV ONE (10:30)
[2022-01-31] MEDS ORDERED: CATHETER FLUSH 10 ML SYR IV PRN (10:30)
[2022-01-31 10:37] LABS: BILIRUBIN,URINE NEGATIVE (NEGATIVE); CLARITY,URINE CLEAR; COLOR,URINE YELLOW; GLUCOSE, URINE (UA) NEGATIVE (NEGATIVE); KETONES,URINE TRACE (NEGATIVE); LEUKOCYTE ESTERASE ,URINE NEGATIVE (NEGATIVE); NITRITE,URINE NEGATIVE (NEGATIVE); PH,URINE 5.5 (5-9); PROTEIN,URINE NEGATIVE (NEGATIVE)
[2022-01-31 10:45] LABS: BACTERIA,URINE TRACE /HPF; WBC,URINE 0-2 /HPF
[2022-01-31 10:46] LABS: AMPHETAMINE SCREEN, URINE NEGATIVE (NEGATIVE); BARBITURATE SCREEN URINE NEGATIVE (NEGATIVE); BENZODIAZEPINES SCREEN URINE NEGATIVE (NEGATIVE); CANNABINOID SCREEN, URINE POSITIVE (NEGATIVE); COCAINE SCREEN URINE NEGATIVE (NEGATIVE); METHADONE STAT NEGATIVE (NEGATIVE); OPIATE SCREEN URINE NEGATIVE (NEGATIVE); OXYCODONE STAT NEGATIVE (NEGATIVE); PROPOXYPHENE STAT NEGATIVE (NEGATIVE); TRICYCLIC ANTIDEPRESSANTS SCRE NEGATIVE (NEGATIVE)
--- NOTE | 2022-01-31 11:05 | Diagnostic Imaging Report ---
PROCEDURE: CT head without contrast. TECHNIQUE: Multiple contiguous axial images were obtained through the brain without the use of intravenous contrast. Auto Exposure Controls were utilized during the CT exam to meet ALARA standards for radiation dose reduction. DATE: January 31, 2022. COMPARISON: CT head and cervical spine September 15, 2020. INDICATION: 51-year-old male, difficulty walking. Encephalopathy. FINDINGS: There is no identified skull fracture. The visualized portions of the paranasal sinuses, mastoid air cells, and middle ears are well-aerated. There is mild proportional prominence of the ventricles and additional CSF spaces consistent with mild cerebral volume loss. There is no mass effect or midline shift. There is no acute intracranial hemorrhage. There is no abnormal extra-axial fluid collection. The visualized portions of the paranasal sinuses, mastoid air cells and middle ears are well aerated. IMPRESSION: 1. No identified acute intracranial abnormality. 2. Mild cerebral volume loss. Dictated by: Dictated on workstation # [id number]
--- NOTE | 2022-01-31 11:19 | Diagnostic Imaging Report ---
PROCEDURE: CT angiography of the chest with contrast. TECHNIQUE: Multiple contiguous axial images were obtained through the chest after uneventful bolus administration of intravenous contrast. 3D reconstructed CTA MIP acquisitions were also performed. Auto Exposure Controls were utilized during the CT exam to meet ALARA standards for radiation dose reduction. INDICATION: Positive for COVID, respiratory distress. FINDINGS: There are no prior CTA chest examinations available for comparison. The plain film examination of the chest performed prior to the study failed to show any sign of an acute abnormality. There is no defect within the main pulmonary arteries to indicate a pulmonary embolus. The branches of the pulmonary arteries to the upper and lower lobes are not fully opacified and difficult to assess. There are several defects within the branches, but these are more likely due to a flow phenomenon than to pulmonary emboli. The aorta is not abnormally dilated, and there is no sign of a dissection. The heart size is within normal limits. There are mild chronic changes present. There is no sign of failure, pneumonia, or pleural effusion. There is no mediastinal or hilar adenopathy. The thyroid gland where visualized is unremarkable. The sections through the upper abdomen fail to show any sign of an acute abnormality. The bone windows are unremarkable for a fracture or for a destructive lesion. IMPRESSION: 1. The small defects within the branches of the pulmonary arteries are more likely due to a flow phenomenon than to pulmonary emboli. There is no evidence for a pulmonary embolus at this time. 2. There is no acute cardiopulmonary abnormality noted otherwise. Dictated by: Dictated on workstation # [id number]
--- NOTE | 2022-01-31 13:03 | Tele-ICU Progress Note ---
Subjective Date Seen by a Provider: Jan 31, 2022 Time Seen by a Provider: 12:33 Subjective/Events-last exam This virtual visit was conducted using real time audio/video. Thank you for asking us to see this patient for respiratory insufficiency, Covid positive, AMS, w delirium and temp 38.2 Recent events: PMH: Multiple Sclerosis SH: smoking history unknown FH: Non-contributory ROS: limited by patient's clinical condition. PE: VSS. O2 sat 97% on RA HEENT: No obvious masses, adenopathy or JVD. Chest: clear to auscultation. CV: RRR S1 S2 No murmur or added sounds. Abd: Non-tender. Bowel sounds Y. : Unremarkable. 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 No obvious focal findings. Extremities: No edema. Capillary refill < 3 seconds. Skin: unremarkable. Results: Elevated BG 114. CXR: clear. CTC: no PE or infilts. CTC NiAvailable chart/ vitals / labs / images reviewed. Video assessment done using teleICU camera, rest of exam as per RN. A/P: Respiratory insufficiency: Continue present management with O2. Monitor for increasing oxygenation needs and/or need for intubation. Critical Care: critically ill patient. Cont. IVF, abx. Will add Dexamethasone. Discussed with ER MD and GUANAKO Clement. Asked RN to reach out to eICU if any questions or concerns later. Time spent with patient/coordination of care with other health professionals (mins): 27 Sepsis Event Evaluation Height, Weight, BMI Height: 5'7.00" Weight: 175lbs. oz. 79.771045vt; 28.00 BMI Method:Estimated Focused Exam Lactate Level 01/31/22 08:50: Lactic Acid Level 1.59 Lactic Acid Level Laboratory Tests Test 01/31/22 08:50 Lactic Acid Level 1.59 MMOL/L (0.50-2.00) Exam Exam Patient acknowledged, consented, and participated in this virtual visit which was conducted using real time audio/video Vital Signs Date Time Temp Pulse Resp B/P (MAP) Pulse Ox O2 Delivery O2 Flow Rate FiO2 01/31/22 09:45 38.2 01/31/22 08:45 38.2 88 16 125/85 97 01/31/22 08:45 38.2 88 16 125/85 (98) 97 Room Air Height & Weight Height: 5'7.00" Weight: 175lbs. oz. 79.729912ld; 28.00 BMI Method:Estimated General Appearance: Chronically ill, Mild Distress HEENT: PERRL/EOMI, TMs Normal, Normal ENT Inspection, Pharynx Normal, Moist Mucous Membranes Neck: Full Range of Motion, Normal Inspection, Non Tender Respiratory: Lungs Clear, Normal Breath Sounds, No Accessory Muscle Use, No Respiratory Distress Cardiovascular: Regular Rate, Rhythm, No Edema, Normal Peripheral Pulses Capillary Refill: Less Than 3 Seconds Extremity: Normal Capillary Refill, Normal Inspection, No Pedal Edema Neurologic/Psychiatric: Alert, No Motor/Sensory Deficits; No Normal Mood/Affect (Depressed affect, slow to answer); 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 Critical Care: Critically Ill Patient MARCUS ZUÑIGA MD Jan 31, 2022 13:03
[2022-01-31] MEDS ORDERED: polyethylene glycoL POWDER 17 GM (MIRALAX) PACK PO PRN (13:30)
[2022-01-31] MEDS ORDERED: ONDANSETRON 4 MG (ZOFRAN) ORAL DISSOLVE TAB PO PRN (13:30)
[2022-01-31] MEDS ORDERED: CALCIUM CARBONATE 500 MG (TUMS) TAB.CHEW PO PRN (13:30)
[2022-01-31] MEDS ORDERED: BISACODYL 10 MG SUPP (DULCOLAX) PR PRN (13:30)
[2022-01-31] MEDS ORDERED: MILK OF MAGNESIA 400 MG/5 ML 30 ML UDC PO PRN (13:30)
[2022-01-31] MEDS ORDERED: LACTULOSE SYRUP 10GM/15ML (ENULOSE) 30ML UDC PO PRN (13:30)
[2022-01-31] MEDS ORDERED: ANTACID SUSP 30 ML UDC (MYLANTA) PO PRN (13:30)
[2022-01-31] MEDS ORDERED: diphenhydrAMINE 50 MG/ML INJ (BENADRYL) IVP PRN (13:30)
[2022-01-31] MEDS: NS IV 1000 ML 1,000 ML IV SCH ×2 (14:11→21:10)
[2022-01-31] MEDS ORDERED: DexMEDEtomidine 250 ML DRIP 250 ML IV SCH (14:15)
[2022-01-31 15:49] VITALS: BP 123/73
[2022-01-31] MEDS ORDERED: RT-ALBUTEROL HFA 8.5 GM INHALER IH PRN (16:00)
--- NOTE | 2022-01-31 18:05 | History & Physical-Hospitalist ---
History of Present Illness HPI/Chief Complaint CC: Delirium HPI: This is a 51yoAAM clinic patient of [facility] who has a h/o MS but non-compliant with medical treatments and follow up who presents to the ER with confusion. Apparently he was increasingly confused the past few days having poor PO intake and family brought him here to ER then left. Brother gave minimal details. IVF given and patient remained confused and he was found to have COVID but no hypoxia or PNA and appeared to have other manifestations of the illness rather than pulmonary. He was changed to ICU status due to agitation and the need for Precedex. Patient is resting and provides no details. Source: RN/MD, old records Exam Limitations: clinical condition Date Seen 01/31/22 Time Seen by a Provider: 19:00 Attending Physician No,Local Physician PCP Admitting Physician: Anel Peña DO Attending Physician: Anel Peña DO Referring Physician Date of Admission Jan 31, 2022 at 11:56 Home Medications & Allergies Home Medications Reviewed patient Home Medication Reconciliation performed by pharmacy medication reconciliations database software technician and/or nursing. Patients Allergies have been reviewed. Allergies Allergies Coded Allergies omeprazole (Verified Allergy, Unknown, 12/24/05) Past Ffoezab-Xkcojx-Lusdly Hx Patient Social History Marrital Status: single Employed/Student: unemployed Tobacco Use?: No Smoking Status: Unknown if Ever Smoked Use of E-Cig and/or Vaping dev: No Substance use?: Yes Substance type: Marijuana Substance frequency: Couple times a week Alcohol Use?: No Pt feels they are or have been: No Immunizations Up To Date First/Initial COVID19 Vaccinat: yes Second COVID19 Vaccination Rickie: yes Tetanus Booster (TDap): Unknown Current Status Advance Directives: No Communicates: Verbally Primary Language: Hebrew Preferred Spoken Language: Hebrew Is interpretation needed?: No Past Medical History Multiple Sclerosis Blood Disorders: No Review of Systems ROS-Unable to Obtain: delirium Constitutional: see HPI Physical Exam Physical Exam Vital Signs Vital Signs - First Documented Capillary Refill : Less Than 3 Seconds Height, Weight, BMI Height: 5'7.00" Weight: 175lbs. oz. 79.171250iy; 35.46 BMI Method:Estimated General Appearance: Chronically ill, Other (sedated) Neck: Normal Inspection Respiratory: Lungs Clear, Normal Breath Sounds Cardiovascular: Regular Rate, Rhythm Results Results/Procedures Labs Laboratory Tests 01/31/22 08:50 01/31/22 09:10 Patient resulted labs reviewed. Assessment/Plan Admission Diagnosis Assessment: Delirium COVID 19 infection Dehydration Agitation Plan: IVF Precedex ICU Supportive care Isolation Admission Status: Inpatient Order (span 2 midnights) Reason for Inpatient Admission: COVID with delirium Diagnosis/Problems Diagnosis/Problems (1) Delirium due to another medical condition Status: Acute (2) COVID-19 Status: Acute (3) Multiple sclerosis Status: Acute ANEL PEÑA DO Jan 31, 2022 18:05
[2022-01-31] MEDS: DOCUSATE SODIUM 100 MG (COLACE) CAP PO SCH (19:23)
[2022-01-31] MEDS: SENNOSIDES 8.6 MG (SENOKOT) TAB PO SCH (19:23)
[2022-02-01] MEDS: NS IV 1000 ML 1,000 ML IV SCH (04:32)
--- NOTE | 2022-02-01 06:08 | Progress Note - Hospitalist ---
Subjective HPI/CC On Admission Date Seen by Provider: Feb 01, 2022 Time Seen by Provider: 09:00 CC: Delirium HPI: This is a 51yoAAM clinic patient of [facility] who has a h/o MS but non-compliant with medical treatments and follow up who presents to the ER with confusion. Apparently he was increasingly confused the past few days having poor PO intake and family brought him here to ER then left. Brother gave minimal details. IVF given and patient remained confused and he was found to have COVID but no hypoxia or PNA and appeared to have other manifestations of the illness rather than pulmonary. He was changed to ICU status due to agitation and the need for Precedex. Patient is resting and provides no details. Subjective/Events-last exam Pt is doing a lot better Transferring to the floor Precedex stopped due to heart rate low at 0400 Decreased confusion Bowels are moving Review of Systems General: Fatigue, Malaise Neurological: Weakness Focused Exam Lactate Level 01/31/22 08:50: Lactic Acid Level 1.59 Objective Exam Vital Signs Vital Signs Date Time Temp Pulse Resp B/P (MAP) Pulse Ox O2 Delivery O2 Flow Rate FiO2 02/02/22 00:15 36.2 63 18 103/72 (82) 96 Room Air Capillary Refill : Less Than 3 Seconds General Appearance: No Apparent Distress, WD/WN, Chronically ill Respiratory: Lungs Clear, Normal Breath Sounds Cardiovascular: Regular Rate, Rhythm Neurologic/Psychiatric: Alert, Oriented x3 Results/Procedures Lab Laboratory Tests 02/02/22 05:58 Patient resulted labs reviewed. Assessment/Plan Assessment and Plan Assess & Plan/Chief Complaint Assessment: Delirium COVID 19 infection Dehydration Agitation Plan: IVF Precedex ICU Supportive care Isolation 02/01/2022: Supportive care monitor closely Moved to fourth floor Critical Care Critically Ill Patient Diagnosis/Problems Diagnosis/Problems (1) Delirium due to another medical condition Status: Acute (2) COVID-19 Status: Acute (3) Multiple sclerosis Status: Acute CHYNA PLATA DO Feb 01, 2022 06:08
[2022-02-01 06:13] LABS: BASOPHILS % (AUTO) 0 % (0-10); EOSINOPHILS % (AUTO) 0 % (0-10); HEMATOCRIT 41 % (40-54); HEMOGLOBIN 13.4 g/dL (13.3-17.7); LYMPHOCYTES # (AUTO) 0.9 10^3/uL (1.0-4.0); LYMPHOCYTES % (AUTO) 28 % (12-44); MEAN CORPUSCULAR HEMOGLOBIN 30 pg (25-34); MEAN CORPUSCULAR HGB CONC 33 g/dL (32-36); MEAN CORPUSCULAR VOLUME 91 fL (80-99); MEAN PLATELET VOLUME 12.5 fL (9.0-12.2); MONOCYTES # (AUTO) 0.5 10^3/uL (0.0-1.0); MONOCYTES % (AUTO) 18 % (0-12); NEUTROPHILS # (AUTO) 1.7 10^3/uL (1.8-7.8); NEUTROPHILS % (AUTO) 54 % (42-75); PLATELET COUNT 108 10^3/uL (130-400); WHITE BLOOD COUNT 3.1 10^3/uL (4.3-11.0)
[2022-02-01 06:25] LABS: ALBUMIN 3.3 GM/DL (3.2-4.5)
[2022-02-01 06:26] LABS: POTASSIUM 4.1 MMOL/L (3.6-5.0)
[2022-02-01 06:28] LABS: TOTAL PROTEIN 5.9 GM/DL (6.4-8.2)
[2022-02-01 06:30] LABS: BILIRUBIN,TOTAL 0.7 MG/DL (0.1-1.0)
[2022-02-01 06:32] LABS: CREATININE SERUM 1.01 MG/DL (0.60-1.30)
[2022-02-01 06:41] LABS: LYMPHOCYTES % (MANUAL) 34 %; MONOCYTES % (MANUAL) 18 %; NEUTROPHILS % (MANUAL) 48 %
[2022-02-01 06:42] LABS: RBC MORPH NORMAL
--- NOTE | 2022-02-01 08:50 | Physical Therapy Evaluation ---
PT Evaluation-General Medical Diagnosis Admission Date Jan 31, 2022 at 11:56 Medical Diagnosis: covid, delirium Onset Date: Jan 31, 2022 Therapy Diagnosis Therapy Diagnosis: impaired mobility Height/Weight Height (Feet): 5 Height (Inches): 7.00 Weight (Pounds): 175 Precautions Precautions/Isolations: Airborne Isolation, Fall Prevention Weight Bear Status Right Lower Extremity: Right Weight Bearing/Tolerated Left Lower Extremity: Left Weight Bearing/Tolerated Referral Physician: Anel Peña DO Reason for Referral: Evaluation/Treatment Medical History Additional Medical History MS Reviewed History: Yes Social History Current Living Status: Alone Entry Into Home: Stairs With Railing PT Steps Into Home: 2 Prior Prior Level of Function SCALE: Activities may be completed with or without assistive devices. 9-Bjlfzgcibu-nsgrhsi completes the activity by him/herself with no assistance from a helper. 5-Set-up or Clean-up Assistance-helper sets up or cleans up; patient completes activity. [place] assists only prior to or following the activity. 4-Supervision or Touching Assistance-helper provides verbal cues and/or touching/steadying and/or contact guard assistance as patient completes activity. Assistance may be provided throughout the activity or intermittently. 3-Partial/Moderate Assistance-helper does LESS THAN HALF the effort. [place] lifts, holds or supports trunk or limbs, but provides less than half the effort. 2-Substantial/Maximal Assistance-helper does MORE THAN HALF the effort. [place] lifts or holds trunk or limbs and provides more than half the effort. 7-Smzydjsla-rwjnba does ALL the effort. Patient does none of the effort to complete the activity. Or, the assistance of 2 or more helpers is required for the patient to complete the activity. If activity was not attempted, code reason: 7-Patient Refused. 9-Not Applicable-not attempted and the patient did not perform the activity before the current illness, exacerbation or injury. 10-Not Attempted due to Environmental Limitations-(lack of equipment, weather restraints, etc.). 88-Not Attempted due to Medical Conditions or Safety Concerns. Bed Mobility: 6 Transfers (B,C,W/C): 6 Gait: 6 Indoor Mobility (Ambulation): Independent Prior Devices Use: Walker patient is a poor historian, unsure of the accuracy of this info PT Evaluation-Current Subjective Patient in bed pre tx, agrees to PT, has no complaints of pain. Pt/Family Goals none stated Objective Patient Orientation: Person, Confused, Mumbles Attachments: [place] Catheter, IV ROM/Strength ROM Lower Extremities WNL Strength Lower Extremities LLE (hip flexion 3+/5, knee flexion 4/5, knee extension 4/5, dorsiflexion 4/5), RLE (hip flexion 3+/5, knee flexion 4/5, knee extension 4/5, dorsiflexion 4/5) Sensory Vision: Functional Hearing: Functional Sensation Right Lower Extremit: Intact Sensation Left Lower Extremity: Intact Transfers Roll Left to Right (QC): 6 Sit to Lying (QC): 4 Lying to Sitting/Side of Bed(Q: 4 Sit to Stand (QC): 4 Gait Does the Patient Walk?: Yes Mode of Locomotion: Walk Anticipated Mode of Locomotion: Walk Walk 10 feet (QC): 4 Distance: 20' Gait Assistive Device: FWW Comments/Gait Description slow ambulation, shaky, impulsive, poor safety awareness Balance Sitting Static: Normal Sitting Dynamic: Normal Standing Static: Fair Standing Dynamic: Fair Treatment BLE seated exercises x20 (AP, LAQ) Assessment/Needs Patient in bed post tx with nurse call, phone, tray, all needs met, bed alarm on. Nurse notified to fix his telemetry, the stickers were coming off. Patient has impaired mobility, is somewhat impulsive and slightly agitated. Rehab Potential: Fair PT Sanitary Engineering Teacher Goals Sanitary Engineering Teacher Goals PT Retirement Goals Time Frame: Feb 08, 2022 Roll Left & Right (QC): 6 Sit to Lying (QC): 6 Lying-Sitting on Side/Bed(QC): 6 Sit to Stand (QC): 6 Chair/Wlv-qo-Wjasv Xfer(QC): 6 Walk 10 feet (QC): 6 Walk 50ft with 2 Turns (QC): 6 PT Plan Problem List Problem List: Activity Tolerance, Functional Strength, Safety, Balance, Gait, Transfer, Bed Mobility, ROM Treatment/Plan Treatment Plan: Continue Plan of Care Treatment Plan: Bed Mobility, Education, Functional Activity Isabela, Functional Strength, Gait, Safety, Therapeutic Exercise, Transfers Treatment Duration: Feb 08, 2022 Frequency: 6 times per week Estimated Hrs Per Day: .25 hour per day Patient and/or Family Agrees t: Yes Safety Risks/Education Patient Education: Gait Training, Transfer Techniques, Correct Positioning, Safety Issues Teaching Recipient: Patient Teaching Methods: Demonstration, Discussion Response to Teaching: Reinforcement Needed Discharge Recommendations Plan Patient will perform bed mobility and transfer training, balance and endurance training, functional strengthening, gait training, and education, to improve functional mobility and independence at home Therapy Discharge Recommendati: Home & Family, Post Acute PT Time/GCodes Time In: 809 Time Out: 826 Total Billed Treatment Time: 17 Total Billed Treatment 1 visit EV 17' DEYSI WAGNER PT Feb 01, 2022 08:50
[2022-02-01] MEDS: DOCUSATE SODIUM 100 MG (COLACE) CAP PO SCH ×2 (08:51→19:25)
[2022-02-01] MEDS: SENNOSIDES 8.6 MG (SENOKOT) TAB PO SCH ×2 (08:51→19:25)
--- NOTE | 2022-02-01 10:18 | Occupational Therapy Eval ---
OT Evaluation-General/PLF Medical Diagnosis Admission Date Jan 31, 2022 at 11:56 Medical Diagnosis: covid, delirium Onset Date: Jan 31, 2022 Therapy Diagnosis Therapy Diagnosis: impaired adl status Height/Weight Height (Feet): 5 Height (Inches): 7.00 Weight (Pounds): 175 Precautions Precautions/Isolations: Airborne Isolation, Fall Prevention Referral Physician: Anel Peña DO Referral Reason: Evaluation/Treatment Medical History Additional Medical History MS (per chart, pt is non-compliant with medical treatment) Current History pt presents to ER with confusion. Per patient, he just moved in with his son. Initially pt reports dependence with all adls. With further questioning, pt changes his response and states that he is able to complete adls independently. No family present to verify accuracy of responses. Pt states he uses a cane at baseline. Reviewed History: Yes Social History Home: Single Level Current Living Status: Children Entry Into Home: Stairs With Railing (pt unsure how many steps to enter home) ADL-Prior Level of Function SCALE: Activities may be completed with or without assistive devices. 2-Rpmdyimljf-fbqapcl completes the activity by him/herself with no assistance from a helper. 5-Set-up or Clean-up Assistance-helper sets up or cleans up; patient completes activity. [place] assists only prior to or following the activity. 4-Supervision or Touching Assistance-helper provides verbal cues and/or to uching/steadying and/or contact guard assistance as patient completes activity. Assistance may be provided throughout the activity or intermittently. 3-Partial/Moderate Assistance-helper does LESS THAN HALF the effort. [place] lifts, holds or supports trunk or limbs, but provides less than half the effort. 2-Substantial/Maximal Assistance-helper does MORE THAN HALF the effort. [place] lifts or holds trunk or limbs and provides more than half the effort. 7-Edolrzhzs-cdixsv does ALL the effort. Patient does none of the effort to complete the activity. Or, the assistance of 2 or more helpers is required for the patient to complete the activity. If activity was not attempted, code reason: 7-Patient Refused. 9-Not Applicable-not attempted and the patient did not perform the activity before the current illness, exacerbation or injury. 10-Not Attempted due to Environmental Limitations-(lack of equipment, weather restraints, etc.). 88-Not Attempted due to Medical Conditions or Safety Concerns. Self Care: Unknown Functional Cognition: Unknown Drive Self: No OT Current Status Subjective Pt reports fatigue, appears confused, can be easily agitated. Appearance Pt left supine in bed, all needs within reach. TEACHING ARTIST notified. Mental Status/Objective Patient Orientation: Person, Confused Attachments: Scales Catheter, IV, Telemetry Current Upper Extremity ROM WNL Upper Extremity Strength 4/5 grossly ADL-Treatment Oral Hygiene (QC): 5 Toileting Hygiene (QC): 1 (scales catheter) Pt supine in bed at OT arrival. He refuses any OOB/EOB activities as he reports that he is "too weak." Per physical therapy note, pt was SBA for bed mobility and sit<>stand transfers. Pt can be impulsive with poor safety awareness. With HOB raised, pt agreeable to complete grooming tasks. Extra time to manipulate objects but no physical assistance needed post set up. Ongoing assessment needed to assess functional adls due to refusal to get out of bed. Education OT Patient Education: Correct positioning, Purpose of tx/functional activities, Safety issues, Transfer techniques Teaching Recipient: Patient Teaching Methods: Discussion Response to Teaching: Verbalize Understanding, Reinforcement Needed OT Scientific Programmer Analyst Goals Scientific Programmer Analyst Goals Time Frame: Feb 15, 2022 Toileting Hygiene (QC): 4 Upper Body Dressing (QC): 4 Lower Body Dressing (QC): 4 On/Off Footwear (QC): 4 1=Demonstrate adherence to instructed precautions during ADL tasks. 2=Patient will verbalize/demonstrate understanding of assistive devices/modifications for ADL. 3=Patient will improve strength/tolerance for activity to enable patient to perform ADL's. OT Education/Plan Problem List/Assessment Assessment: Decreased Activ Tolerance, Decreased Safety Aware, Impaired Cognition, Impaired Self-Care Skills Discharge Recommendations Plan/Recommendations: Continue POC Target Placement ongoing assessment warranted Treatment Plan/Plan of Care Treatment,Training & Education: Yes Patient would benefit from OT for education, treatment and training to promote independence in ADL's, mobility, safety and/or upper extremity function for ADL's. Plan of Care: ADL Retraining, Caregiver Training, Cognitive Retraining, Functional Mobility, Group Exercise/Act as Ind, UE Funct Exercise/Act Treatment Duration: Feb 15, 2022 Frequency: 3 times per week (3-5x/week) Estimated Hrs Per Day: .25 hour per day Rehab Potential: Guarded Time/GCodes Start Time: 09:22 Stop Time: 09:34 Total Time Billed (hr/min): 12 Billed Treatment Time 1 visit Marion Parisi OT Feb 01, 2022 10:18
[2022-02-01 11:18] VITALS: BP 123/80
[2022-02-01 15:20] VITALS: BP 126/86
[2022-02-01 19:32] VITALS: BP 121/82
[2022-02-01] MEDS: ACETAMINOPHEN 325 MG TABLET PO PRN (20:42)
[2022-02-01] MEDS: MELATONIN 3 MG TABLET PO PRN (20:42)
[2022-02-01] MEDS: diphenhydrAMINE 25 MG TAB (BENADRYL) PO PRN (20:42)
[2022-02-02 00:15] VITALS: BP 103/72
[2022-02-02 06:15] LABS: BASOPHILS % (AUTO) 0 % (0-10); EOSINOPHILS % (AUTO) 0 % (0-10); HEMATOCRIT 42 % (40-54); HEMOGLOBIN 14.3 g/dL (13.3-17.7); LYMPHOCYTES # (AUTO) 1.1 10^3/uL (1.0-4.0); LYMPHOCYTES % (AUTO) 36 % (12-44); MEAN CORPUSCULAR HEMOGLOBIN 30 pg (25-34); MEAN CORPUSCULAR HGB CONC 34 g/dL (32-36); MEAN CORPUSCULAR VOLUME 87 fL (80-99); MEAN PLATELET VOLUME 12.3 fL (9.0-12.2); MONOCYTES # (AUTO) 0.5 10^3/uL (0.0-1.0); MONOCYTES % (AUTO) 17 % (0-12); NEUTROPHILS # (AUTO) 1.4 10^3/uL (1.8-7.8); NEUTROPHILS % (AUTO) 47 % (42-75); PLATELET COUNT 129 10^3/uL (130-400)
[2022-02-02 06:26] LABS: ALBUMIN 3.5 GM/DL (3.2-4.5)
[2022-02-02 06:27] LABS: POTASSIUM 3.3 MMOL/L (3.6-5.0)
[2022-02-02 06:28] LABS: CALCIUM 8.4 MG/DL (8.5-10.1)
[2022-02-02 06:29] LABS: TOTAL PROTEIN 6.4 GM/DL (6.4-8.2)
[2022-02-02 06:31] LABS: BILIRUBIN,TOTAL 0.8 MG/DL (0.1-1.0)
[2022-02-02 06:33] LABS: CREATININE SERUM 0.94 MG/DL (0.60-1.30)
--- NOTE | 2022-02-02 06:57 | Progress Note - Hospitalist ---
Subjective HPI/CC On Admission Date Seen by Provider: Feb 02, 2022 Time Seen by Provider: 10:00 CC: Delirium HPI: This is a 51yoAAM clinic patient of [facility] who has a h/o MS but non-compliant with medical treatments and follow up who presents to the ER with confusion. Apparently he was increasingly confused the past few days having poor PO intake and family brought him here to ER then left. Brother gave minimal details. IVF given and patient remained confused and he was found to have COVID but no hypoxia or PNA and appeared to have other manifestations of the illness rather than pulmonary. He was changed to ICU status due to agitation and the need for Precedex. Patient is resting and provides no details. Subjective/Events-last exam Pt is doing really well Potassium is 3.2 40 MEq IV given PT and OT working with him Still in isolation for Covid Not hypoxic Review of Systems General: Fatigue, Malaise Focused Exam Lactate Level 01/31/22 08:50: Lactic Acid Level 1.59 Objective Exam Vital Signs Vital Signs Date Time Temp Pulse Resp B/P (MAP) Pulse Ox O2 Delivery O2 Flow Rate FiO2 02/02/22 19:22 98 Room Air 02/02/22 15:34 37.0 74 18 130/78 (95) Capillary Refill : Less Than 3 Seconds General Appearance: No Apparent Distress, WD/WN, Chronically ill Respiratory: Lungs Clear, Normal Breath Sounds Cardiovascular: Regular Rate, Rhythm Neurologic/Psychiatric: Alert, Oriented x3, Normal Mood/Affect, Motor Weakness (generalized) Results/Procedures Lab Laboratory Tests 02/02/22 05:58 Patient resulted labs reviewed. Assessment/Plan Assessment and Plan Assess & Plan/Chief Complaint Assessment: Delirium COVID 19 infection Dehydration Agitation Plan: IVF Precedex ICU Supportive care Isolation 02/01/2022: Supportive care monitor closely Moved to fourth floor 02/02/22: PT OT Monitor O2 Critical Care Critically Ill Patient Diagnosis/Problems Diagnosis/Problems (1) Delirium due to another medical condition Status: Acute (2) COVID-19 Status: Acute (3) Multiple sclerosis Status: Acute CHYNA PLATA DO Feb 02, 2022 06:57
[2022-02-02] MEDS ORDERED: MAGNESIUM 1 GM/100 ML IVPB 100 ML IV ONE (07:00)
[2022-02-02] MEDS ORDERED: NS IV 500 ML 500 ML IV PRN (08:00)
[2022-02-02] MEDS: DOCUSATE SODIUM 100 MG (COLACE) CAP PO SCH ×2 (08:05→21:07)
[2022-02-02] MEDS: SENNOSIDES 8.6 MG (SENOKOT) TAB PO SCH ×2 (08:05→21:07)
[2022-02-02] MEDS: POTASSIUM CL 10MEQ/50ML IVPB 50 ML IV SCH ×4 (08:05→10:05)
[2022-02-02 08:37] VITALS: BP 119/68
--- NOTE | 2022-02-02 10:27 | Occupational Ther Daily Note ---
OT Current Status-Daily Note Subjective Pt alert, lying in bed. Pt oriented x1, person. Pt agrees to therapy. Mental Status/Objective Patient Orientation: Person, Place Attachments: IV ADL-Treatment Therapy Code Descriptions/Definitions Functional [place] Measure: 0=Not Assessed/NA 4=Minimal Assistance 1=Total Assistance 5=Supervision or Setup 2=Maximal Assistance 6=Modified [place] 3=Moderate Assistance 7=Complete IndependenceSCALE: Activities may be completed with or without assistive devices. 0-Cnxqcjszlo-dkoauci completes the activity by him/herself with no assistance from a helper. 5-Set-up or Clean-up Assistance-helper sets up or cleans up; patient completes activity. [place] assists only prior to or following the activity. 4-Supervision or Touching Assistance-helper provides verbal cues and/or touching/steadying and/or contact guard assistance as patient completes activity. Assistance may be provided throughout the activity or intermittently. 3-Partial/Moderate Assistance-helper does LESS THAN HALF the effort. [place] lifts, holds or supports trunk or limbs, but provides less than half the effort. 2-Substantial/Maximal Assistance-helper does MORE THAN HALF the effort. [place] lifts or holds trunk or limbs and provides more than half the effort. 8-Ngdbacozs-uljurh does ALL the effort. Patient does none of the effort to complete the activity. Or, the assistance of 2 or more helpers is required for the patient to complete the activity. If activity was not attempted, code reason: 7-Patient Refused. 9-Not Applicable-not attempted and the patient did not perform the activity before the current illness, exacerbation or injury. 10-Not Attempted due to Environmental Limitations-(lack of equipment, weather restraints, etc.). 88-Not Attempted due to Medical Conditions or Safety Concerns. Other Treatment Supine to EOB independent. Able to reach and straighten socks on feet. CGA to transfer from EOB to chair. Ordered breakfast for pt. After therapy, pt sitting in recliner with call light/phone in reach. Safety measures in place. OT Penitentiary Goals Penitentiary Goals Time Frame: Feb 15, 2022 Toileting Hygiene (QC): 4 Upper Body Dressing (QC): 4 Lower Body Dressing (QC): 4 On/Off Footwear (QC): 4 1=Demonstrate adherence to instructed precautions during ADL tasks. 2=Patient will verbalize/demonstrate understanding of assistive devices/modifications for ADL. 3=Patient will improve strength/tolerance for activity to enable patient to perform ADL's. OT Education/Plan Problem List/Assessment Assessment: Decreased Activ Tolerance, Decreased UE Strength, Impaired Cognition, Impaired Self-Care Skills Discharge Recommendations Plan/Recommendations: Continue POC Treatment Plan/Plan of Care Patient would benefit from OT for education, treatment and training to promote independence in ADL's, mobility, safety and/or upper extremity function for ADL's. Plan of Care: ADL Retraining, Caregiver Training, Cognitive Retraining, Functional Mobility, Group Exercise/Act as Ind, UE Funct Exercise/Act Treatment Duration: Feb 15, 2022 Frequency: 3 times per week (3-5x/week) Estimated Hrs Per Day: .25 hour per day Rehab Potential: Guarded Time/GCodes Start Time: 08:20 Stop Time: 08:38 Total Time Billed (hr/min): 18 Billed Treatment Time 1 visit-FA 1 (18 min) TATIANNA LOPEZ Feb 02, 2022 10:27
--- NOTE | 2022-02-02 11:04 | Physical Therapy Daily Note ---
PT Daily Note-Current Subjective Patient in recliner pre tx, agrees to PT, has some irritation in his IV site on the left arm, states he needs to go use the restroom. Appearance Patient in recliner post tx with nurse call, phone, tray, chair alarm on. Mental Status Patient Orientation: Person, Place, Situation Attachments: IV Transfers SCALE: Activities may be completed with or without assistive devices. 1-Arqrkhypnt-xcwhcdk completes the activity by him/herself with no assistance from a helper. 5-Set-up or Clean-up Assistance-helper sets up or cleans up; patient completes activity. [place] assists only prior to or following the activity. 4-Supervision or Touching Assistance-helper provides verbal cues and/or touching/steadying and/or contact guard assistance as patient completes activity. Assistance may be provided throughout the activity or intermittently. 3-Partial/Moderate Assistance-helper does LESS THAN HALF the effort. [place] lifts, holds or supports trunk or limbs, but provides less than half the effort. 2-Substantial/Maximal Assistance-helper does MORE THAN HALF the effort. [place] lifts or holds trunk or limbs and provides more than half the effort. 1-Htepgurev-hpxupu does ALL the effort. Patient does none of the effort to complete the activity. Or, the assistance of 2 or more helpers is required for the patient to complete the activity. If activity was not attempted, code reason: 7-Patient Refused. 9-Not Applicable-not attempted and the patient did not perform the activity before the current illness, exacerbation or injury. 10-Not Attempted due to Environmental Limitations-(lack of equipment, weather restraints, etc.). 88-Not Attempted due to Medical Conditions or Safety Concerns. Sit to Stand (QC): 4 Chair/Wip-le-Nlssr Xfer(QC): 4 Patient stands and ambulates to the restroom, urinates, doesn't need help with any of this, SBA. Weight Bearing Right Lower Extremity: Right Weight Bearing/Tolerated Left Lower Extremity: Left Weight Bearing/Tolerated Gait Training Distance: 10'x2, 40' Walk 10 feet (QC): 4 Gait Persons Needed: 1 Gait Assistive Device: FWW SBA for ambulation, patient states he doesn't need the walker. Exercises Seated Therapy Exercises: Ankle pumps, Long arc quads Seated Reps: 20 Treatments toileting, ambulation, LE strengthening Assessment Current Status: Fair Progress no LOB, just slow movement PT Nurse Wound Goals Group Home Goals PT Group Home Goals Time Frame: Feb 08, 2022 Roll Left & Right (QC): 6 Sit to Lying (QC): 6 Lying-Sitting on Side/Bed(QC): 6 Sit to Stand (QC): 6 Chair/Zmw-pc-Gvhpk Xfer(QC): 6 Walk 10 feet (QC): 6 Walk 50ft with 2 Turns (QC): 6 PT Plan Problem List Problem List: Activity Tolerance, Functional Strength, Safety, Balance, Gait, Transfer, Bed Mobility, ROM Treatment/Plan Treatment Plan: Continue Plan of Care Treatment Plan: Bed Mobility, Education, Functional Activity Isabela, Functional Strength, Gait, Safety, Therapeutic Exercise, Transfers Treatment Duration: Feb 08, 2022 Frequency: 6 times per week Estimated Hrs Per Day: .25 hour per day Patient and/or Family Agrees t: Yes Safety Risks/Education Patient Education: Gait Training, Transfer Techniques, Correct Positioning, Safety Issues Teaching Recipient: Patient Teaching Methods: Demonstration, Discussion Response to Teaching: Reinforcement Needed Time/GCodes Time In: 1038 Time Out: 1051 Total Billed Treatment Time: 13 Total Billed Treatment 1 visit FA DEYSI VALDES PT Feb 02, 2022 11:04
[2022-02-02 15:34] VITALS: BP 130/78
[2022-02-02] MEDS: MELATONIN 3 MG TABLET PO PRN (21:07)
[2022-02-02] MEDS: diphenhydrAMINE 25 MG TAB (BENADRYL) PO PRN (21:08)
[2022-02-02] MEDS: ACETAMINOPHEN 325 MG TABLET PO PRN (21:08)
[2022-02-02 23:55] VITALS: BP 101/73
--- NOTE | 2022-02-03 06:00 | Progress Note - Hospitalist ---
Subjective HPI/CC On Admission Date Seen by Provider: Feb 03, 2022 Time Seen by Provider: 09:30 CC: Delirium HPI: This is a 51yoAAM clinic patient of [facility] who has a h/o MS but non-compliant with medical treatments and follow up who presents to the ER with confusion. Apparently he was increasingly confused the past few days having poor PO intake and family brought him here to ER then left. Brother gave minimal details. IVF given and patient remained confused and he was found to have COVID but no hypoxia or PNA and appeared to have other manifestations of the illness rather than pulmonary. He was changed to ICU status due to agitation and the need for Precedex. Patient is resting and provides no details. Subjective/Events-last exam Pt incontient Confused at times This could very well be his baseline Doesn't have a safe discharge if this is not his baseline Will evaluate what the next step is with his family, with police going to the house to obtain correspondence Review of Systems General: Fatigue, Malaise Neurological: Confusion Focused Exam Lactate Level Objective Exam Vital Signs Vital Signs Date Time Temp Pulse Resp B/P (MAP) Pulse Ox O2 Delivery O2 Flow Rate FiO2 02/03/22 15:45 36.4 91 18 119/76 (90) 98 Room Air Capillary Refill : Less Than 3 Seconds General Appearance: No Apparent Distress, WD/WN, Chronically ill Respiratory: Lungs Clear, Normal Breath Sounds Cardiovascular: Regular Rate, Rhythm Neurologic/Psychiatric: Alert, Depressed Affect, Disoriented Skin: Normal Color, Warm/Dry Results/Procedures Lab Laboratory Tests 02/03/22 06:06 Patient resulted labs reviewed. Assessment/Plan Assessment and Plan Assess & Plan/Chief Complaint Assessment: Delirium COVID 19 infection Dehydration Agitation Plan: IVF Precedex ICU Supportive care Isolation 02/01/2022: Supportive care monitor closely Moved to fourth floor 02/02/22: PT OT Monitor O2 02/03: Monitor O2 DC on Critical Care Critically Ill Patient Diagnosis/Problems Diagnosis/Problems (1) Delirium due to another medical condition Status: Acute (2) COVID-19 Status: Acute (3) Multiple sclerosis Status: Acute CHYNA PLATA DO Feb 03, 2022 06:00
[2022-02-03 06:24] LABS: BASOPHILS % (AUTO) 0 % (0-10); EOSINOPHILS % (AUTO) 0 % (0-10); HEMATOCRIT 44 % (40-54); HEMOGLOBIN 14.8 g/dL (13.3-17.7); LYMPHOCYTES # (AUTO) 0.7 10^3/uL (1.0-4.0); LYMPHOCYTES % (AUTO) 20 % (12-44); MEAN CORPUSCULAR HEMOGLOBIN 30 pg (25-34); MEAN CORPUSCULAR HGB CONC 34 g/dL (32-36); MEAN CORPUSCULAR VOLUME 89 fL (80-99); MEAN PLATELET VOLUME 12.5 fL (9.0-12.2); MONOCYTES # (AUTO) 0.7 10^3/uL (0.0-1.0); MONOCYTES % (AUTO) 20 % (0-12); NEUTROPHILS % (AUTO) 59 % (42-75); PLATELET COUNT 131 10^3/uL (130-400); WHITE BLOOD COUNT 3.3 10^3/uL (4.3-11.0)
[2022-02-03 06:32] LABS: ALBUMIN 3.6 GM/DL (3.2-4.5); POTASSIUM 3.5 MMOL/L (3.6-5.0)
[2022-02-03 06:33] LABS: CALCIUM 8.3 MG/DL (8.5-10.1)
[2022-02-03 06:34] LABS: TOTAL PROTEIN 6.6 GM/DL (6.4-8.2)
[2022-02-03 06:36] LABS: BILIRUBIN,TOTAL 0.9 MG/DL (0.1-1.0)
[2022-02-03 06:38] LABS: CREATININE SERUM 1.2 MG/DL (0.60-1.30)
[2022-02-03 07:52] VITALS: BP 100/67
[2022-02-03] MEDS: SENNOSIDES 8.6 MG (SENOKOT) TAB PO SCH ×2 (09:00→20:17)
[2022-02-03] MEDS: DOCUSATE SODIUM 100 MG (COLACE) CAP PO SCH ×2 (09:00→20:17)
--- NOTE | 2022-02-03 11:52 | Occupational Ther Daily Note ---
OT Current Status-Daily Note Subjective Pt sleeping in bed. Woke to name but very groggy and continued to close eyes. Pt stated that he would participate in OT though rolled over and went back to sleep. Mental Status/Objective Patient Orientation: Person Attachments: IV ADL-Treatment Therapy Code Descriptions/Definitions Functional [place] Measure: 0=Not Assessed/NA 4=Minimal Assistance 1=Total Assistance 5=Supervision or Setup 2=Maximal Assistance 6=Modified [place] 3=Moderate Assistance 7=Complete IndependenceSCALE: Activities may be completed with or without assistive devices. 9-Ghteeddqnh-dqglcpf completes the activity by him/herself with no assistance from a helper. 5-Set-up or Clean-up Assistance-helper sets up or cleans up; patient completes activity. [place] assists only prior to or following the activity. 4-Supervision or Touching Assistance-helper provides verbal cues and/or touching/steadying and/or contact guard assistance as patient completes activity. Assistance may be provided throughout the activity or intermittently. 3-Partial/Moderate Assistance-helper does LESS THAN HALF the effort. [place] lifts, holds or supports trunk or limbs, but provides less than half the effort. 2-Substantial/Maximal Assistance-helper does MORE THAN HALF the effort. [place] lifts or holds trunk or limbs and provides more than half the effort. 4-Zzuqtjogr-tgmsxe does ALL the effort. Patient does none of the effort to complete the activity. Or, the assistance of 2 or more helpers is required for the patient to complete the activity. If activity was not attempted, code reason: 7-Patient Refused. 9-Not Applicable-not attempted and the patient did not perform the activity be fore the current illness, exacerbation or injury. 10-Not Attempted due to Environmental Limitations-(lack of equipment, weather restraints, etc.). 88-Not Attempted due to Medical Conditions or Safety Concerns. Other Treatment Pt would answer questions with eyes closed though very difficult to understand. ARCHULETA ordered pt's lunch by asking pt questions and pt would answer though mumbles and questions had to be repeated. Pt is independent in bed mobility. Pt stated that he wanted to complete exercises then promptly rolled over and fell back to sleep. After therapy, pt lying in bed with call light/phone in reach. All needs met in room. OT Durability Technician Goals Fpc Goals Time Frame: Feb 15, 2022 Toileting Hygiene (QC): 4 Upper Body Dressing (QC): 4 Lower Body Dressing (QC): 4 On/Off Footwear (QC): 4 1=Demonstrate adherence to instructed precautions during ADL tasks. 2=Patient will verbalize/demonstrate understanding of assistive devices/modifications for ADL. 3=Patient will improve strength/tolerance for activity to enable patient to perform ADL's. OT Education/Plan Problem List/Assessment Assessment: Decreased Activ Tolerance, Decreased UE Strength, Impaired Cognition, Impaired Self-Care Skills Discharge Recommendations Plan/Recommendations: Continue POC Treatment Plan/Plan of Care Patient would benefit from OT for education, treatment and training to promote independence in ADL's, mobility, safety and/or upper extremity function for ADL's. Plan of Care: ADL Retraining, Caregiver Training, Cognitive Retraining, Functional Mobility, Group Exercise/Act as Ind, UE Funct Exercise/Act Treatment Duration: Feb 15, 2022 Frequency: 3 times per week (3-5x/week) Estimated Hrs Per Day: .25 hour per day Rehab Potential: Guarded Time/GCodes Start Time: 11:07 Stop Time: 11:17 Total Time Billed (hr/min): 10 Billed Treatment Time 1 visit-FA 1 (10 min) TATIANNA LOPEZ Feb 03, 2022 11:52
--- NOTE | 2022-02-03 14:52 | Physical Therapy Daily Note ---
PT Daily Note-Current Subjective Pt is sitting up in bed eating lunch upon arrival. Pt still has most of lunch in front of him and is moving very slowly. Pain Location: No Pain Reported Mental Status Patient Orientation: Person Transfers SCALE: Activities may be completed with or without assistive devices. 8-Qfmikxbapd-tutkwgg completes the activity by him/herself with no assistance from a helper. 5-Set-up or Clean-up Assistance-helper sets up or cleans up; patient completes activity. [place] assists only prior to or following the activity. 4-Supervision or Touching Assistance-helper provides verbal cues and/or touching/steadying and/or contact guard assistance as patient completes activity. Assistance may be provided throughout the activity or intermittently. 3-Partial/Moderate Assistance-helper does LESS THAN HALF the effort. [place] lifts, holds or supports trunk or limbs, but provides less than half the effort. 2-Substantial/Maximal Assistance-helper does MORE THAN HALF the effort. [place] lifts or holds trunk or limbs and provides more than half the effort. 9-Xbrxxmdhy-ngjmrh does ALL the effort. Patient does none of the effort to complete the activity. Or, the assistance of 2 or more helpers is required for the patient to complete the activity. If activity was not attempted, code reason: 7-Patient Refused. 9-Not Applicable-not attempted and the patient did not perform the activity before the current illness, exacerbation or injury. 10-Not Attempted due to Environmental Limitations-(lack of equipment, weather restraints, etc.). 88-Not Attempted due to Medical Conditions or Safety Concerns. Lying to Sitting/Side of Bed(Q: 4 Sit to Stand (QC): 3 Toilet Transfer (QC): 3 Weight Bearing Right Lower Extremity: Right Weight Bearing/Tolerated Left Lower Extremity: Left Weight Bearing/Tolerated Gait Training Does the Patient Walk?: Yes Distance: 20' Walk 10 feet (QC): 4 Gait Persons Needed: 1 Gait Assistive Device: FWW Treatments MILITARY PERSONNEL SPECIALIST attempts to get pt to complete EX or walk w/in room. Pt doesn't verbalize response until he says "Bathroom". Pt TF to EOB, starts to urinate at bedside then stands w/assistance. Pt amb. to BR. Pt returns to recliner so MILITARY PERSONNEL SPECIALIST can clean up urine. Pt rests at end of tx w/all needs met, call light in hand. Assessment Current Status: Fair Progress Pt demonstrates confusion, many VC & TC needed to complete tasks. PT Crown Ironer Goals Crown Ironer Goals PT Crown Ironer Goals Time Frame: Feb 08, 2022 Roll Left & Right (QC): 6 Sit to Lying (QC): 6 Lying-Sitting on Side/Bed(QC): 6 Sit to Stand (QC): 6 Chair/Cbs-hy-Xfibj Xfer(QC): 6 Walk 10 feet (QC): 6 Walk 50ft with 2 Turns (QC): 6 PT Plan Problem List Problem List: Activity Tolerance, Safety Treatment/Plan Treatment Plan: Continue Plan of Care Treatment Plan: Bed Mobility, Education, Functional Activity Isabela, Functional Strength, Gait, Safety, Therapeutic Exercise, Transfers Treatment Duration: Feb 08, 2022 Frequency: 6 times per week Estimated Hrs Per Day: .25 hour per day Patient and/or Family Agrees t: Yes Safety Risks/Education Patient Education: Transfer Techniques, Correct Positioning, Safety Issues Teaching Recipient: Patient Teaching Methods: Discussion Response to Teaching: Reinforcement Needed Time/GCodes Time In: 1400 Time Out: 1419 Total Billed Treatment Time: 19 Total Billed Treatment 1, FA (19m) DARYA ELISE MILITARY PERSONNEL SPECIALIST Feb 03, 2022 14:52
[2022-02-03 15:45] VITALS: BP 119/76
[2022-02-04 00:10] VITALS: BP 113/76
[2022-02-04 05:59] LABS: BASOPHILS % (AUTO) 0 % (0-10); EOSINOPHILS % (AUTO) 0 % (0-10); LYMPHOCYTES # (AUTO) 1.4 10^3/uL (1.0-4.0)
[2022-02-04 06:01] LABS: HEMATOCRIT 45 % (40-54); HEMOGLOBIN 15.5 g/dL (13.3-17.7); LYMPHOCYTES % (AUTO) 50 % (12-44); MEAN CORPUSCULAR HEMOGLOBIN 30 pg (25-34); MEAN CORPUSCULAR HGB CONC 34 g/dL (32-36); MEAN CORPUSCULAR VOLUME 88 fL (80-99); MEAN PLATELET VOLUME 12.2 fL (9.0-12.2); MONOCYTES # (AUTO) 0.6 10^3/uL (0.0-1.0); MONOCYTES % (AUTO) 21 % (0-12); NEUTROPHILS # (AUTO) 0.8 10^3/uL (1.8-7.8); NEUTROPHILS % (AUTO) 29 % (42-75); PLATELET COUNT 102 10^3/uL (130-400); WHITE BLOOD COUNT 2.8 10^3/uL (4.3-11.0)
[2022-02-04 06:10] LABS: ALBUMIN 3.7 GM/DL (3.2-4.5); POTASSIUM 3.5 MMOL/L (3.6-5.0)
[2022-02-04 06:12] LABS: CALCIUM 8.3 MG/DL (8.5-10.1)
[2022-02-04 06:13] LABS: TOTAL PROTEIN 6.7 GM/DL (6.4-8.2)
[2022-02-04 06:15] LABS: BILIRUBIN,TOTAL 0.8 MG/DL (0.1-1.0)
[2022-02-04 06:16] LABS: CREATININE SERUM 1.07 MG/DL (0.60-1.30)
[2022-02-04] MEDS ORDERED: KCL 20 MEQ TAB (K-DUR) PO ONE ×2 (06:45→09:30)
[2022-02-04 07:33] VITALS: BP 92/53
[2022-02-04] MEDS: SENNOSIDES 8.6 MG (SENOKOT) TAB PO SCH ×2 (09:37→22:00)
[2022-02-04] MEDS: DOCUSATE SODIUM 100 MG (COLACE) CAP PO SCH ×2 (09:37→22:00)
--- NOTE | 2022-02-04 11:53 | D/C HH Face to Face Order ---
D/C HH Face to Face Orders Reconcile Patient Problems Problems Reviewed?: Yes Instructions for Patient HH Patient Instructions/FollowUp: PCP 1 week Physician to follow Patient: PCP Discharge Diet for Home: No Restrictions Patient Problems: MS COVID Patient Data-Allergies,Ht & Wt Patient Allergies: Coded Allergies: omeprazole (Verified Allergy, Unknown, 12/24/05) Height (Feet): 5 Height (Inches): 7.00 Weight (Pounds): 175 Home Health Need/Face to Face Date of Face to Face: Feb 04, 2022 Clinical Findings: Generalized weakness and fatigue, Instability, Muscle weakness I have seen Pt ceme-he-eqqy: Yes Discharged To: Home Diagnosis/Conditions: Debility COVID Patient is Homebound due to: CognItive deficits, Lore fall risk due to instabilty, Muscle weakness Homebound Status Due to the above stated illness, injury or surgical procedure (medical condition or diagnosis) and associated clinical findings, the patient is homebound because of his/her inability to leave home except with aid of a supportive device and/or person AND leaving the home requires a considerable and taxing effort or is medically contraindicated. Pt req the following assistanc: Walker Home Health Nursing Orders Home Health Services Order: Nursing Services, Toilet Attendant-Evaluate & Treat, Physical Therapy-Evaluate & Treat Home Health Infusion Therapy Line Start Date: Jan 31, 2022 Certify Stmt I certify that this patient is under my care and that I, a nurse practitioner or a physician; a purchasing assistant working with me, had a face to face encounter that - meets the physician face to face encounter requirements with this patient as dated. CHYNA PLATA DO Feb 04, 2022 11:53
--- NOTE | 2022-02-04 11:54 | Discharge Summary ---
Discharge Summary Hospital Course Problems/Dx: (1) Delirium due to another medical condition Status: Acute (2) COVID-19 Status: Acute (3) Multiple sclerosis Status: Acute Hospital Course Date of Admission: Jan 31, 2022 at 11:56 Admission Diagnosis : Family Physician/Provider: Krystin,Local Physician Date of Discharge: 02/04/22 Discharge Diagnosis: [ ] Hospital Course: [ ] Labs and Pending Lab Test: Laboratory Tests 02/04/22 05:51: White Blood Count 2.8L, Red Blood Count 5.15, Hemoglobin 15.5, Hematocrit 45, Mean Corpuscular Volume 88, Mean Corpuscular Hemoglobin 30, Mean Corpuscular Hemoglobin Concent 34, Red Cell Distribution Width 12.0, Platelet Count 102L, Mean Platelet Volume 12.2, Immature Granulocyte % (Auto) 0, Neutrophils (%) (Auto) 29L, Lymphocytes (%) (Auto) 50H, Monocytes (%) (Auto) 21H, Eosinophils (%) (Auto) 0, Basophils (%) (Auto) 0, Neutrophils # (Auto) 0.8L, Lymphocytes # (Auto) 1.4, Monocytes # (Auto) 0.6, Eosinophils # (Auto) 0.0, Basophils # (Auto) 0.0, Immature Granulocyte # (Auto) 0.0, Percent Immature Platelet Fraction 10.4H , Sodium Level 135, Potassium Level 3.5L, Chloride Level 101, Carbon Dioxide Level 23, Anion Gap 11, Blood Urea Nitrogen 10, Creatinine 1.07, Estimat Glomerular Filtration Rate 83, BUN/Creatinine Ratio 9, Glucose Level 83, Calcium Level 8.3L, Corrected Calcium 8.5, Total Bilirubin 0.8, Aspartate Amino Transf (AST/SGOT) 29, Alanine Aminotransferase (ALT/SGPT) 22, Alkaline Phosphatase 67, Total Protein 6.7, Albumin 3.7 Microbiology 01/31/22 MRSA Screen - Final, Complete MRSA not isolated 01/31/22 Blood Culture - Preliminary, Resulted No growth 01/31/22 Urine Culture - Final, Complete NO GROWTH Home Meds Active No Active Prescriptions or Reported Medications Discharge Physical Examination Vital Signs Vital Signs Date Time Temp Pulse Resp B/P (MAP) Pulse Ox O2 Delivery O2 Flow Rate FiO2 02/04/22 07:33 36.8 89 20 92/53 (66) 98 Room Air Allergies: Coded Allergies: omeprazole (Verified Allergy, Unknown, 5/5/06) Discharge Summary Date of Admission Jan 31, 2022 at 11:56 Date of Discharge Discharge Date: Feb 04, 2022 Admission Diagnosis Assessment: Delirium COVID 19 infection Dehydration Agitation Plan: IVF Precedex ICU Supportive care Isolation Discharge Diagnosis Assessment: Delirium COVID 19 infection Dehydration Agitation Plan: IVF Precedex ICU Supportive care Isolation 02/01/2022: Supportive care monitor closely Moved to fourth floor 02/02/22: PT OT Monitor O2 02/03: Monitor O2 DC on HH (1) Delirium due to another medical condition Status: Acute (2) COVID-19 Status: Acute (3) Multiple sclerosis Status: Acute CHYNA PLATA DO Feb 04, 2022 11:54
--- NOTE | 2022-02-04 18:51 | Progress Note - Hospitalist ---
Subjective HPI/CC On Admission Date Seen by Provider: Feb 04, 2022 Time Seen by Provider: 11:00 CC: Delirium HPI: This is a 51yoAAM clinic patient of [facility] who has a h/o MS but non-compliant with medical treatments and follow up who presents to the ER with confusion. Apparently he was increasingly confused the past few days having poor PO intake and family brought him here to ER then left. Brother gave minimal details. IVF given and patient remained confused and he was found to have COVID but no hypoxia or PNA and appeared to have other manifestations of the illness rather than pulmonary. He was changed to ICU status due to agitation and the need for Precedex. Patient is resting and provides no details. Subjective/Events-last exam Pt had an uneventful 4 day hospital course after he was admitted for Covid-19 infection with weakness, but no evidence of pneumonia or hypoxia. He is chronically debilitated due to multiple sclerosis and lives with his family. He did not receive any type of antibiotics and did not require such. He was discharged on home health. Overall prognosis remains poor. Review of Systems General: Fatigue, Malaise Neurological: Confusion Objective Exam Vital Signs Vital Signs Date Time Temp Pulse Resp B/P (MAP) Pulse Ox O2 Delivery O2 Flow Rate FiO2 02/04/22 21:11 37.0 81 20 108/70 (83) 97 Room Air Capillary Refill : Less Than 3 Seconds General Appearance: No Apparent Distress, WD/WN, Chronically ill Results/Procedures Lab Laboratory Tests 02/05/22 05:52 Patient resulted labs reviewed. Assessment/Plan Assessment and Plan Assess & Plan/Chief Complaint Assessment: Delirium COVID 19 infection Dehydration Agitation Plan: IVF Precedex ICU Supportive care Isolation 02/01/2022: Supportive care monitor closely Moved to fourth floor 02/02/22: PT OT Monitor O2 02/03: Monitor O2 DC on 02/04: DC Critical Care Critically Ill Patient Diagnosis/Problems Diagnosis/Problems (1) Delirium due to another medical condition Status: Acute (2) COVID-19 Status: Acute (3) Multiple sclerosis Status: Acute CHYNA PLATA DO Feb 04, 2022 18:51
[2022-02-04 21:11] VITALS: BP 108/70
[2022-02-05 05:56] LABS: BASOPHILS % (AUTO) 0 % (0-10); EOSINOPHILS % (AUTO) 0 % (0-10)
[2022-02-05 05:58] LABS: HEMATOCRIT 45 % (40-54); LYMPHOCYTES % (AUTO) 35 % (12-44); MEAN CORPUSCULAR HEMOGLOBIN 30 pg (25-34); MEAN CORPUSCULAR HGB CONC 34 g/dL (32-36); MEAN CORPUSCULAR VOLUME 88 fL (80-99); MEAN PLATELET VOLUME 12.3 fL (9.0-12.2); MONOCYTES # (AUTO) 0.5 10^3/uL (0.0-1.0); MONOCYTES % (AUTO) 19 % (0-12); NEUTROPHILS # (AUTO) 1.2 10^3/uL (1.8-7.8); NEUTROPHILS % (AUTO) 45 % (42-75); PLATELET COUNT 113 10^3/uL (130-400); WHITE BLOOD COUNT 2.7 10^3/uL (4.3-11.0)
[2022-02-05] MEDS ORDERED: ASPI-1238 PO (06:08)
--- NOTE | 2022-02-05 06:09 | Discharge Summary ---
Discharge Summary Hospital Course Was the Problem List Reviewed?: Yes Problems/Dx: (1) Delirium due to another medical condition Status: Acute (2) COVID-19 Status: Acute (3) Multiple sclerosis Status: Acute Hospital Course Date of Admission: Jan 31, 2022 at 11:56 Admission Diagnosis : Family Physician/Provider: No,Local Physician Date of Discharge: 02/05/22 Discharge Diagnosis: COVID, weakness, MS, confusion Hospital Course: Pt had an uneventful 4 day hospital course after he was admitted for Covid-19 infection with weakness, but no evidence of pneumonia or hypoxia. He is chronically debilitated due to multiple sclerosis and lives with his family. He did not receive any type of antibiotics and did not require such. He was discharged on home health. Overall prognosis remains poor. Labs and Pending Lab Test: Laboratory Tests 02/05/22 05:52: White Blood Count 2.7L, Red Blood Count 5.08, Hemoglobin 15.0, Hematocrit 45, Mean Corpuscular Volume 88, Mean Corpuscular Hemoglobin 30, Mean Corpuscular Hemoglobin Concent 34, Red Cell Distribution Width 11.9, Platelet Count 113L, Mean Platelet Volume 12.3H, Immature Granulocyte % (Auto) 0, Neutrophils (%) (Auto) 45, Lymphocytes (%) (Auto) 35, Monocytes (%) (Auto) 19H, Eosinophils (%) (Auto) 0, Basophils (%) (Auto) 0, Neutrophils # (Auto) 1.2L, Lymphocytes # (Auto) 1.0, Monocytes # (Auto) 0.5, Eosinophils # (Auto) 0.0, Basophils # (Auto) 0.0, Immature Granulocyte # (Auto) 0.0, Percent Immature Platelet Fraction 11.2H , Sodium Level [Pending], Potassium Level [Pending], Chloride Level [Pending], Carbon Dioxide Level [Pending], Anion Gap [Pending], Blood Urea Nitrogen [Pending], Creatinine [Pending], BUN/Creatinine Ratio [Pending], Glucose Level [Pending], Calcium Level [Pending], Corrected Calcium [Pending], Total Bilirubin [Pending], Aspartate Amino Transf (AST/SGOT) [Pending], Alanine Aminotransferase (ALT/SGPT) [Pending], Alkaline Phosphatase [Pending], Total Protein [Pending], Albumin [Pending] Microbiology 01/31/22 MRSA Screen - Final, Complete MRSA not isolated 01/31/22 Blood Culture - Preliminary, Resulted No growth 01/31/22 Urine Culture - Final, Complete NO GROWTH Home Meds Active Aspirin EC (Aspirin) 81 Mg Tablet.dr 81 Mg PO DAILY Assessment/Pt Instructions PCP 1 week Discharge Planning: <30 minutes discharge planning Discharge Instructions Discharge Diet: No Restrictions Discharge Physical Examination Vital Signs Vital Signs Date Time Temp Pulse Resp B/P (MAP) Pulse Ox O2 Delivery O2 Flow Rate FiO2 02/04/22 21:11 37.0 81 20 108/70 (83) 97 Room Air General Appearance: No Apparent Distress, WD/WN, Chronically ill Allergies: Coded Allergies: omeprazole (Verified Allergy, Unknown, 12/24/05) Discharge Summary Date of Admission Jan 31, 2022 at 11:56 Date of Discharge Discharge Date: Feb 05, 2022 Admission Diagnosis Assessment: Delirium COVID 19 infection Dehydration Agitation Plan: IVF Precedex ICU Supportive care Isolation Discharge Diagnosis Assessment: Delirium COVID 19 infection Dehydration Agitation Plan: IVF Precedex ICU Supportive care Isolation 02/01/2022: Supportive care monitor closely Moved to fourth floor 02/02/22: PT OT Monitor O2 02/03: Monitor O2 DC on HH 02/04: DC (1) Delirium due to another medical condition Status: Acute (2) COVID-19 Status: Acute (3) Multiple sclerosis Status: Acute CHYNA PLATA DO Feb 05, 2022 06:09
[2022-02-05 06:13] LABS: ALBUMIN 3.6 GM/DL (3.2-4.5); POTASSIUM 3.8 MMOL/L (3.6-5.0)
[2022-02-05 06:14] LABS: CALCIUM 8.2 MG/DL (8.5-10.1)
[2022-02-05 06:15] LABS: TOTAL PROTEIN 6.6 GM/DL (6.4-8.2)
[2022-02-05 06:17] LABS: BILIRUBIN,TOTAL 0.9 MG/DL (0.1-1.0)
[2022-02-05 06:19] LABS: CREATININE SERUM 1.14 MG/DL (0.60-1.30)
[2022-02-05 08:25] VITALS: BP 107/79
--- NOTE | 2022-02-05 08:44 | Physical Therapy Daily Note ---
PT Daily Note-Current Subjective Patient in bed pre tx, agrees to PT, has no complaints of pain. Patient doesn't want to ambulate in his room but does agree to get into the recliner and get ready for breakfast. Appearance Patient in recliner post tx with nurse call, phone, tray, all needs met, chair alarm on. Mental Status Patient Orientation: Person, Place, Situation Transfers SCALE: Activities may be completed with or without assistive devices. 3-Bwuhxutbty-pkcydap completes the activity by him/herself with no assistance from a helper. 5-Set-up or Clean-up Assistance-helper sets up or cleans up; patient completes activity. [place] assists only prior to or following the activity. 4-Supervision or Touching Assistance-helper provides verbal cues and/or touch ing/steadying and/or contact guard assistance as patient completes activity. Assistance may be provided throughout the activity or intermittently. 3-Partial/Moderate Assistance-helper does LESS THAN HALF the effort. [place] lifts, holds or supports trunk or limbs, but provides less than half the effort. 2-Substantial/Maximal Assistance-helper does MORE THAN HALF the effort. [place] lifts or holds trunk or limbs and provides more than half the effort. 3-Nufdzymhx-iwlidt does ALL the effort. Patient does none of the effort to complete the activity. Or, the assistance of 2 or more helpers is required for the patient to complete the activity. If activity was not attempted, code reason: 7-Patient Refused. 9-Not Applicable-not attempted and the patient did not perform the activity before the current illness, exacerbation or injury. 10-Not Attempted due to Environmental Limitations-(lack of equipment, weather restraints, etc.). 88-Not Attempted due to Medical Conditions or Safety Concerns. Roll Left & Right (QC): 6 Lying to Sitting/Side of Bed(Q: 6 Sit to Stand (QC): 4 Chair/Mgj-lo-Itmiz Xfer(QC): 4 SBA for transfer. Patient performs transfer in a less safe manner, ignoring therapist cues to use walker. Weight Bearing Right Lower Extremity: Right Weight Bearing/Tolerated Left Lower Extremity: Left Weight Bearing/Tolerated Exercises Seated Therapy Exercises: Ankle pumps, Long arc quads Seated Reps: 20 Treatments bed mobility and transfers, LE strengthening Assessment Current Status: Poor Progress patient ignores safety cues PT Assisted Goals Valve Pipe Irrigator Goals PT Assisted Goals Time Frame: Feb 08, 2022 Roll Left & Right (QC): 6 Sit to Lying (QC): 6 Lying-Sitting on Side/Bed(QC): 6 Sit to Stand (QC): 6 Chair/Qzh-sv-Nunkk Xfer(QC): 6 Walk 10 feet (QC): 6 Walk 50ft with 2 Turns (QC): 6 PT Plan Problem List Problem List: Activity Tolerance, Functional Strength, Safety, Balance, Gait, Transfer, Bed Mobility, ROM Treatment/Plan Treatment Plan: Continue Plan of Care Treatment Plan: Bed Mobility, Education, Functional Activity Isabela, Functional Strength, Gait, Safety, Therapeutic Exercise, Transfers Treatment Duration: Feb 08, 2022 Frequency: 6 times per week Estimated Hrs Per Day: .25 hour per day Patient and/or Family Agrees t: Yes Safety Risks/Education Patient Education: Transfer Techniques, Correct Positioning, Safety Issues Teaching Recipient: Patient Teaching Methods: Demonstration, Discussion Response to Teaching: Reinforcement Needed Time/GCodes Time In: 813 Time Out: 823 Total Billed Treatment Time: 10 Total Billed Treatment 1 visit FA DEYSI SAHU PT Feb 05, 2022 08:44
[2022-02-05] MEDS: DOCUSATE SODIUM 100 MG (COLACE) CAP PO SCH (08:49)
[2022-02-05] MEDS: SENNOSIDES 8.6 MG (SENOKOT) TAB PO SCH (08:49)
[2022-02-05] MEDS ORDERED: ENOXAPARIN 40 MG/0.4 ML (LOVENOX) SYR SC SCH (09:00)
--- NOTE | 2022-02-05 11:51 | Occupational Ther Daily Note ---
OT Current Status-Daily Note Subjective Pt alert, sitting in recliner. Pt agrees to therapy to get back into bed. Pt refuses any ADLs or exercises. Mental Status/Objective Patient Orientation: Person, Unable to Assess ADL-Treatment Therapy Code Descriptions/Definitions Functional [place] Measure: 0=Not Assessed/NA 4=Minimal Assistance 1=Total Assistance 5=Supervision or Setup 2=Maximal Assistance 6=Modified [place] 3=Moderate Assistance 7=Complete IndependenceSCALE: Activities may be completed with or without assistive devices. 5-Ikuadwxwih-tecrwzx completes the activity by him/herself with no assistance from a helper. 5-Set-up or Clean-up Assistance-helper sets up or cleans up; patient completes activity. [place] assists only prior to or following the activity. 4-Supervision or Touching Assistance-helper provides verbal cues and/or touching/steadying and/or contact guard assistance as patient completes activity. Assistance may be provided throughout the activity or intermittently. 3-Partial/Moderate Assistance-helper does LESS THAN HALF the effort. [place] lift s, holds or supports trunk or limbs, but provides less than half the effort. 2-Substantial/Maximal Assistance-helper does MORE THAN HALF the effort. [place] lifts or holds trunk or limbs and provides more than half the effort. 6-Jrlnvdbbm-wruhdz does ALL the effort. Patient does none of the effort to complete the activity. Or, the assistance of 2 or more helpers is required for the patient to complete the activity. If activity was not attempted, code reason: 7-Patient Refused. 9-Not Applicable-not attempted and the patient did not perform the activity before the current illness, exacerbation or injury. 10-Not Attempted due to Environmental Limitations-(lack of equipment, weather restraints, etc.). 88-Not Attempted due to Medical Conditions or Safety Concerns. Other Treatment CGA to transfer from recliner to bed by furniture surfing. Pt independent with bed mobility. After session, pt lying in bed with call light/phone in reach. Safety measures in place. All needs met. OT Support Staff Goals Support Staff Goals Time Frame: Feb 15, 2022 Toileting Hygiene (QC): 4 Upper Body Dressing (QC): 4 Lower Body Dressing (QC): 4 On/Off Footwear (QC): 4 1=Demonstrate adherence to instructed precautions during ADL tasks. 2=Patient will verbalize/demonstrate understanding of assistive devices/modifications for ADL. 3=Patient will improve strength/tolerance for activity to enable patient to perform ADL's. OT Education/Plan Problem List/Assessment Assessment: Decreased Activ Tolerance, Decreased Safety Aware Discharge Recommendations Plan/Recommendations: Continue POC Treatment Plan/Plan of Care Patient would benefit from OT for education, treatment and training to promote independence in ADL's, mobility, safety and/or upper extremity function for ADL's. Plan of Care: ADL Retraining, Caregiver Training, Cognitive Retraining, Functional Mobility, Group Exercise/Act as Ind, UE Funct Exercise/Act Treatment Duration: Feb 15, 2022 Frequency: 3 times per week (3-5x/week) Estimated Hrs Per Day: .25 hour per day Rehab Potential: Guarded Time/GCodes Start Time: 09:30 Stop Time: 09:42 Total Time Billed (hr/min): 12 Billed Treatment Time 1 visit-FA 1 (12 min) TATIANNA LOPEZ Feb 05, 2022 11:51
== END 2022-02-05 12:50 | disposition home health service (06) | DRG 178 ==
LOC: EDUNIT# 08:32 → ER 08:34 → UNDOADMIN 11:56 → ICU 11:56 → 4TH 02-01 10:38
PROVIDERS: ADMIT Internal Medicine; ATTEND Internal Medicine
PROC: 8E0ZXY6 Isolation (ICD-10-PCS; principal; 2022-01-31)
DX: U07.1 COVID-19 (principal); F05 Delirium due to known physiological condition; G35 Multiple sclerosis; E86.0 Dehydration; Z88.8 Allergy status to other drugs, medicaments and biological substances; Z79.52 Long term (current) use of systemic steroids
CPT/HCPCS: 36415; 51702; 70450; 71045; 71275; 80053; 80306; 80320; 81000; 82140; 82805; 83605; 83735; 84145; 85007; 85025; 85027; 85379; 85610; 85730; 87040; 87081; 87088; 87636; 96365; 96375; 99291

== ENCOUNTER 2022-07-22 01:23 | Inpatient (IN) | payer OTHER ==
[~2022-07-22] VITALS: Ht 170.2 cm; Wt 79.4 kg
[~2022-07-22 01:23] MED LIST changes: +ASPI-1238 PO
[2022-07-22 02:07] LABS: BASOPHILS % (AUTO) 0 % (0-10); EOSINOPHILS % (AUTO) 0 % (0-10); HEMATOCRIT 41 % (40-54); HEMOGLOBIN 13.9 g/dL (13.3-17.7); LYMPHOCYTES # (AUTO) 1.4 10^3/uL (1.0-4.0); LYMPHOCYTES % (AUTO) 21 % (12-44); MEAN CORPUSCULAR HEMOGLOBIN 30 pg (25-34); MEAN CORPUSCULAR HGB CONC 34 g/dL (32-36); MEAN CORPUSCULAR VOLUME 89 fL (80-99); MONOCYTES # (AUTO) 0.8 10^3/uL (0.0-1.0); MONOCYTES % (AUTO) 11 % (0-12); NEUTROPHILS # (AUTO) 4.6 10^3/uL (1.8-7.8); NEUTROPHILS % (AUTO) 67 % (42-75); PLATELET COUNT 169 10^3/uL (130-400); WHITE BLOOD COUNT 6.8 10^3/uL (4.3-11.0)
[2022-07-22 02:17] LABS: ALBUMIN 3.7 GM/DL (3.2-4.5); POTASSIUM 3.7 MMOL/L (3.6-5.0)
[2022-07-22 02:18] LABS: CALCIUM 8.9 MG/DL (8.5-10.1)
[2022-07-22 02:21] LABS: BILIRUBIN,TOTAL 1.3 MG/DL (0.1-1.0)
[2022-07-22 02:23] LABS: CREATININE SERUM 0.88 MG/DL (0.60-1.30)
[2022-07-22 02:24] LABS: BILIRUBIN,URINE NEGATIVE (NEGATIVE); CLARITY,URINE SL CLOUDY; GLUCOSE, URINE (UA) NEGATIVE (NEGATIVE); KETONES,URINE NEGATIVE (NEGATIVE); LEUKOCYTE ESTERASE ,URINE NEGATIVE (NEGATIVE); NITRITE,URINE NEGATIVE (NEGATIVE); PROTEIN,URINE NEGATIVE (NEGATIVE)
[2022-07-22 02:25] LABS: MAGNESIUM 1.7 MG/DL (1.6-2.4)
[2022-07-22 02:31] LABS: BACTERIA,URINE TRACE /HPF; COLOR,URINE DARK YELLOW; SQUAMOUS EPITHELIAL CELL,UR RARE /HPF; WBC,URINE 0-2 /HPF
[2022-07-22] MEDS ORDERED: methylPREDNISolone SOD SUCC 500 MG in NS (IVPB) 50 ML IV ONE (03:45)
[2022-07-22] MEDS ORDERED: methylPREDNISolone 125 MG (Solu-MEDROL) VIAL IVP ONE (03:45)
[2022-07-22 04:15] LABS: TSH (THYROID ANALYZER) 0.93 UIU/ML (0.35-4.94)
--- NOTE | 2022-07-22 06:08 | ED General ---
General Chief Complaint: General Problems/Pain Stated Complaint: MS,WEAKNESS,DIZZY,FALL TO KNEES Nursing Triage Note: PATIENT FAMILY STATES PATIENT HAS BEEN WEAKER THAN USUAL. PATIENT VERBALIZED NO PAIN OR CONCERNS OTHER THAN WEAKNESS Source of Information: Patient Exam Limitations: No Limitations History of Present Illness Date Seen by Provider: Jul 22, 2022 Time Seen by Provider: 13:58 Initial Comments This 51-year-old gentleman is brought to the emergency room by his family with concerns about progressive decline in function and progressive weakness over the last 4 days approximately. He normally is able to independently ambulate with a walker but has been unable to get up and walk today. He has had a mild dry cough. Yesterday he complained of his legs hurting. He has had no fever, vomiting, or diarrhea. He is a [facility] and receives medical services in the home by the [facility]. He has no local clinic provider. He has longstanding MS and has not been on any MS specific therapies for years. His family is having a difficult time getting him connected with neurology at the [facility]. Patient denies any pain at this time. He is alert but somewhat of a confused historian. Patient's family provides most of the history. They, he recently started cholesterol medication. Allergies and Home Medications Allergies Coded Allergies: omeprazole (Verified Allergy, Unknown, 12/24/05) Patient Home Medication List Home Medication List Reviewed: Yes Atorvastatin Calcium (Atorvastatin Calcium) 40 Mg Tablet, 20 MG PO HS, (Reported) Entered as Reported by: GIGI DONG on 07/23/22 1103 Last Action: Reviewed Cholecalciferol (Vitamin D3) (Vitamin D3) 25 Mcg (1000 Unit) Tablet, 25 MCG PO HS, (Reported) Entered as Reported by: JACK SOL on 07/22/22 161 Last Action: Reviewed Discontinued Medications Aspirin (Aspirin EC) 81 Mg Tablet.dr, 81 MG PO DAILY Discontinued Reason: No Longer Taking Prescribed by: CHYNA PLATA on 02/05/22 0608 Last Action: Discontinued Atorvastatin Calcium (Lipitor) 20 Mg Tablet, 20 MG PO HS, (Reported) Discontinued Reason: Duplicate Order Entered as Reported by: JACK SOL on 07/22/22 161 Last Action: Discontinued Review of Systems Review of Systems Constitutional: see HPI EENTM: no symptoms reported Respiratory: see HPI Cardiovascular: no symptoms reported Gastrointestinal: no symptoms reported Genitourinary: no symptoms reported Musculoskeletal: see HPI Skin: no symptoms reported Psychiatric/Neurological: See HPI Hematologic/Lymphatic: No Symptoms Reported Immunological/Allergic: no symptoms reported Past Abqjsqv-Kqdofj-Hpteru Hx Patient Social History Tobacco Use?: No Use of E-Cig and/or Vaping dev: No Substance use?: Yes Substance type: Marijuana Alcohol Use?: No Immunizations Up To Date First/Initial COVID19 Vaccinat: yes Second COVID19 Vaccination Rickie: yes Third COVID19 Vaccination Date: yes Past Medical History Surgeries: No Respiratory: No Cardiac: Yes High Cholesterol Neurological: Yes Multiple Sclerosis Reproductive Disorders: No Gastrointestinal: No Musculoskeletal: Yes Endocrine: No HEENT: No (GLASSES) Cancer: No Psychosocial: Yes (MOOD DISORDER. ) Integumentary: No Blood Disorders: No Physical Exam Vital Signs Vital Signs - First Documented 07/22/22 01:45 Temp 37.4 Pulse 76 Resp 20 B/P (MAP) 116/74 (88) Pulse Ox 95 O2 Delivery Room Air Capillary Refill : Less Than 3 Seconds Height, Weight, BMI Height: 5'7.00" Weight: 175lbs. oz. [id number]; 32.00 BMI Method:Estimated General Appearance: No Apparent Distress, WD/WN HEENT: PERRL/EOMI, Normal ENT Inspection, Pharynx Normal Neck: Normal Inspection, Non Tender Respiratory: Lungs Clear, Normal Breath Sounds, No Accessory Muscle Use, No Respiratory Distress Cardiovascular: Regular Rate, Rhythm, No Edema, No Murmur Gastrointestinal: Normal Bowel Sounds, Non Tender, Soft Extremity: Normal Inspection, No Pedal Edema Neurologic/Psychiatric: Alert, No Motor/Sensory Deficits, Normal Mood/Affect Skin: Normal Color, Warm/Dry Progress/Results/Core Measures Suspected Sepsis SIRS Temperature: Pulse: 76 Respiratory Rate: 20 Laboratory Tests 07/22/22 02:00: White Blood Count 6.8 Blood Pressure 116 /74 Mean: 88 Laboratory Tests 07/22/22 02:00: Creatinine 0.88, Platelet Count 169, Total Bilirubin 1.3H Results/Orders Lab Results Laboratory Tests Test 07/22/22 01:40 07/22/22 02:00 07/22/22 02:15 Range/Units Influenza Type A (RT-PCR) Not Detected Not Detecte Influenza Type B (RT-PCR) Not Detected Not Detecte SARS-CoV-2 RNA (RT-PCR) Not Detected Not Detecte White Blood Count 6.8 4.3-11.0 10^3/uL Red Blood Count 4.64 4.30-5.52 10^6/uL Hemoglobin 13.9 13.3-17.7 g/dL Hematocrit 41 40-54 % Mean Corpuscular Volume 89 80-99 fL Mean Corpuscular Hemoglobin 30 25-34 pg Mean Corpuscular Hemoglobin Concent 34 32-36 g/dL Red Cell Distribution Width 12.2 10.0-14.5 % Platelet Count 169 130-400 10^3/uL Mean Platelet Volume 12.0 9.0-12.2 fL Immature Granulocyte % (Auto) 0 % Neutrophils (%) (Auto) 67 42-75 % Lymphocytes (%) (Auto) 21 12-44 % Monocytes (%) (Auto) 11 0-12 % Eosinophils (%) (Auto) 0 0-10 % Basophils (%) (Auto) 0 0-10 % Neutrophils # (Auto) 4.6 1.8-7.8 10^3/uL Lymphocytes # (Auto) 1.4 1.0-4.0 10^3/uL Monocytes # (Auto) 0.8 0.0-1.0 10^3/uL Eosinophils # (Auto) 0.0 0.0-0.3 10^3/uL Basophils # (Auto) 0.0 0.0-0.1 10^3/uL Immature Granulocyte # (Auto) 0.0 0.0-0.1 10^3/uL Sodium Level 136 135-145 MMOL/L Potassium Level 3.7 3.6-5.0 MMOL/L Chloride Level 103 98-107 MMOL/L Carbon Dioxide Level 20 L 21-32 MMOL/L Anion Gap 13 5-14 MMOL/L Blood Urea Nitrogen 9 7-18 MG/DL Creatinine 0.88 0.60-1.30 MG/DL Estimat Glomerular Filtration Rate 103 BUN/Creatinine Ratio 10 Glucose Level 93 70-105 MG/DL Calcium Level 8.9 8.5-10.1 MG/DL Corrected Calcium 9.1 8.5-10.1 MG/DL Magnesium Level 1.7 1.6-2.4 MG/DL Total Bilirubin 1.3 H 0.1-1.0 MG/DL Aspartate Amino Transf (AST/SGOT) 14 5-34 U/L Alanine Aminotransferase (ALT/SGPT) 9 0-55 U/L Alkaline Phosphatase 94 40-136 U/L Total Creatine Kinase 88 30-200 U/L Total Protein 7.0 6.4-8.2 GM/DL Albumin 3.7 3.2-4.5 GM/DL TSH [place] Testing 0.93 0.35-4.94 UIU/ML Urine Color DARK YELLOW Urine Clarity SL CLOUDY Urine pH 6.0 5-9 Urine Specific [place] >=1.030 1.016-1.022 Urine Protein NEGATIVE NEGATIVE Urine Glucose (UA) NEGATIVE NEGATIVE Urine Ketones NEGATIVE NEGATIVE Urine Nitrite NEGATIVE NEGATIVE Urine Bilirubin NEGATIVE NEGATIVE Urine Urobilinogen 2.0 < = 1.0 MG/DL Urine Leukocyte Esterase NEGATIVE NEGATIVE Urine RBC (Auto) NEGATIVE NEGATIVE Urine RBC NONE /HPF Urine WBC 0-2 /HPF Urine Squamous Epithelial Cells RARE /HPF Urine Crystals NONE /LPF Urine Bacteria TRACE /HPF Urine Casts NONE /LPF Urine Mucus SMALL H /LPF Urine Culture Indicated NO My Orders Orders - GARCÍA JOHANSEN MD Cbc With Automated Diff (07/22/22 01:39) Comprehensive Metabolic Panel (07/22/22 01:39) Magnesium (07/22/22 01:39) Ua Culture If Indicated (07/22/22 01:39) Ed Iv/Invasive Line Start (07/22/22 01:39) Covid 19 Inhouse Test (07/22/22 02:07) Influenza A And B By Pcr (07/22/22 02:07) Creatine Kinase (07/22/22 03:38) Thyroid Analyzer (07/22/22 03:40) Methylprednisolone Sod Succ (Solu-Medrol (07/22/22 03:45) Chest 1 View, Ap/Pa Only (07/22/22 05:44) Medications Given in ED Vital Signs/I&O 07/22/22 01:45 Temp 37.4 Pulse 76 Resp 20 B/P (MAP) 116/74 (88) Pulse Ox 95 O2 Delivery Room Air Capillary Refill : Less Than 3 Seconds Blood Pressure Mean: 88 Progress Note : Time: 06:07 Progress Note Work-up was relatively unremarkable. It is probable that his abrupt decline is largely related to flare of MS. He has not functional enough to safely return home at this time. Family requested that he be transferred to [facility] [place]. Unfortunately, the [facility] is on full admission diversion. Patient will be admitted here for further care including high-dose steroid t herapy. He did receive Solu-Medrol 250 mg in the ER. Diagnostic Imaging Diagonstic Imaging: Xray Plain Films/CT/US/NM/MRI: chest Comments Chest x-ray viewed by me. Report not yet available. Bibasilar atelectasis similar to prior Departure Communication (Admissions) Time/Spoke to Admitting Phy: 05:50 Dr. Riddle Impression Primary Impression: Exacerbation of multiple sclerosis Additional Impression: Debility Disposition: ADMITTED INPATIENT Condition: Stable Admissions Decision to Admit Reason: Admit from ER (General) Decision to Admit/Date: Jul 22, 2022 Time/Decision to Admit Time: 05:50 Departure-Patient Inst. Referrals: NO,LOCAL PHYSICIAN (PCP/Family) Primary Care Physician GARCÍA JOHANSEN MD Jul 22, 2022 06:08
--- NOTE | 2022-07-22 07:43 | Diagnostic Imaging Report ---
INDICATION: Cough Portable chest 6:06 AM Heart size and pulmonary vascularity are normal. Lungs are clear. There are no effusions or pneumothoraces. IMPRESSION: No acute abnormalities in the chest. Dictated by: Dictated on workstation # [id number]
[2022-07-22] MEDS: methylPREDNISolone 125 MG (Solu-MEDROL) VIAL IV SCH ×3 (10:30→22:05)
[2022-07-22] MEDS: LACTATED RINGERS 1,000 ML IV SCH (10:30)
[2022-07-22] MEDS ORDERED: ONDANSETRON 4 MG/2 ML (SDV) Z0FRAN IV PRN (10:30)
[2022-07-22 11:00] VITALS: BP 116/73
--- NOTE | 2022-07-22 11:00 | Occupational Therapy Eval ---
OT Evaluation-General/PLF Medical Diagnosis Admission Date Jul 22, 2022 at 05:56 Medical Diagnosis: MS exacerbation, debility, falls Onset Date: Jul 22, 2022 Therapy Diagnosis Therapy Diagnosis: balance impairments, decreased ADL status Height/Weight Height (Feet): 5 Height (Inches): 7.00 Weight (Pounds): 175 Referral Physician: Venkatesh Referral Reason: Evaluation/Treatment Medical History Additional Medical History ED via family with concerns about progressive decline in function and weakness over the last several day. Pt unable to get up and walk Current History MS Social History Home: Single Level Current Living Status: Children (son & son's girlfriend) Entry Into Home: Ramp ADL-Prior Level of Function SCALE: Activities may be completed with or without assistive devices. 8-Yzbjurhmvm-fybamow completes the activity by him/herself with no assistance from a helper. 5-Set-up or Clean-up Assistance-helper sets up or cleans up; patient completes activity. [place] assists only prior to or following the activity. 4-Supervision or Touching Assistance-helper provides verbal cues and/or touching/steadying and/or contact guard assistance as patient completes activity. Assistance may be provided throughout the activity or intermittently. 3-Partial/Moderate Assistance-helper does LESS THAN HALF the effort. [place] lifts, holds or supports trunk or limbs, but provides less than half the effort. 2-Substantial/Maximal Assistance-helper does MORE THAN HALF the effort. [place] lifts or holds trunk or limbs and provides more than half the effort. 8-Oollgbqcn-ydmuds does ALL the effort. Patient does none of the effort to complete the activity. Or, the assistance of 2 or more helpers is required for the patient to complete the activity. If activity was not attempted, code reason: 7-Patient Refused. 9-Not Applicable-not attempted and the patient did not perform the activity before the current illness, exacerbation or injury. 10-Not Attempted due to Environmental Limitations-(lack of equipment, weather restraints, etc.). 88-Not Attempted due to Medical Conditions or Safety Concerns. ADL PLOF Comments Pt initially reports IND with ADLS and functional mobility using rolling walker. Upon further discussion, pt indicates his son assists him with LE dressing/footwear, and all other things he may require. Pt's son or son's girlfriend completes housework and cooking. Self Care: Needed Some Help Functional Cognition: Independent DME/Equipment: Bath Chair, Shower OT Current Status Subjective Pt seated EOB throughout tx, agreeable to OT evaluation. Pt feels like he is close to PLOF with self care tasks, but interested in continued OT services to increase independence with self care and functional mobility and ensure he is safe to discharge home with family. Mental Status/Objective Patient Orientation: Person, Place, Situation Current Upper Extremity ROM WFL, BUE shoulder flexion to approx 150 degrees Upper Extremity Strength grossly 4+/5 ADL-Treatment Eating (QC): 6 On/Off Footwear (QC): 3 (Min A) Toileting Hygiene (QC): 4 (SBA per RN/pt report.) Other Treatments Pt at EOB, agreeable to OT Tx. Pt provided information about PLOF and home set up and participated in UE screen. Pt completed footwear, min A required due to sock catching on pt's toenail. Pt indicates his son assists him with footwear at home. Pt declines toileting, states he just went, and was able to manage clothes/hygiene. Per RN report, SBA required. Pt able to drink coffee independ ently. OT informed pt about OT POC with focus on increasing safety and independence with ADLs and functional mobility, he verbalized understanding. Post tx, pt at EOB, all needs met, call light in reach. Education OT Patient Education: Correct positioning, Modified ADL techniques, Progress toward Goal/Update tx plan, Purpose of tx/functional activities, Rehab process Teaching Recipient: Patient Teaching Methods: Discussion Response to Teaching: Verbalize Understanding OT Internist Medical Doctor Md Goals Internist Medical Doctor Md Goals Time Frame: Jul 30, 2022 Eating (QC): 6 Oral Hygiene (QC): 6 Toileting Hygiene (QC): 6 Shower/Bathe Self (QC): 4 Upper Body Dressing (QC): 5 Lower Body Dressing (QC): 4 On/Off Footwear (QC): 4 Additional Goals: 1-Demonstrate ADL Tasks, 2-Verbalize Understanding, 3- ImproveStrength/Isabela 1=Demonstrate adherence to instructed precautions during ADL tasks. 2=Patient will verbalize/demonstrate understanding of assistive devices/modifications for ADL. 3=Patient will improve strength/tolerance for activity to enable patient to perform ADL's. OT Education/Plan Problem List/Assessment Assessment: Decreased Activ Tolerance, Decreased UE Strength, Impaired Funct B alance, Impaired I ADL's Discharge Recommendations Plan/Recommendations: Continue POC Treatment Plan/Plan of Care Patient would benefit from OT for education, treatment and training to promote independence in ADL's, mobility, safety and/or upper extremity function for ADL's. Plan of Care: ADL Retraining, Functional Mobility, UE Funct Exercise/Act Treatment Duration: Jul 30, 2022 Frequency: 3 times per week (3-5 times per week) Time Start Time: 10:30 Stop Time: 10:50 DATE: Jul 22, 2022 Total Time Billed (hr/min): 20 Billed Treatment Time 1, PRITI LAWRENCE OT Jul 22, 2022 11:00
--- NOTE | 2022-07-22 11:54 | Physical Therapy Evaluation ---
PT Evaluation-General Medical Diagnosis Admission Date Jul 22, 2022 at 05:56 Medical Diagnosis: MS exacerbation, debility, falls Onset Date: Jul 22, 2022 Therapy Diagnosis Therapy Diagnosis: generalized weakness/debility Height/Weight Height (Feet): 5 Height (Inches): 7.00 Weight (Pounds): 175 Precautions Precautions/Isolations: Fall Prevention, Standard Precautions Referral Physician: Venkatesh Reason for Referral: Evaluation/Treatment Medical History Additional Medical History MS Current History ER via family due to progressive weakness Reviewed History: Yes Social History Home: Single Level Current Living Status: Children (son & son's girlfriend) Entry Into Home: Ramp Prior Prior Level of Function SCALE: Activities may be completed with or without assistive devices. 7-Fffwmphcjj-ofnhhyh completes the activity by him/herself with no assistance from a helper. 5-Set-up or Clean-up Assistance-helper sets up or cleans up; patient completes activity. [place] assists only prior to or following the activity. 4-Supervision or Touching Assistance-helper provides verbal cues and/or touching/steadying and/or contact guard assistance as patient completes activity. Assistance may be provided throughout the activity or intermittently. 3-Partial/Moderate Assistance-helper does LESS THAN HALF the effort. [place] lifts, holds or supports trunk or limbs, but provides less than half the effort. 2-Substantial/Maximal Assistance-helper does MORE THAN HALF the effort. [place] lifts or holds trunk or limbs and provides more than half the effort. 8-Orpxowbop-wqtfxr does ALL the effort. Patient does none of the effort to complete the activity. Or, the assistance of 2 or more helpers is required for the patient to complete the activity. If activity was not attempted, code reason: 7-Patient Refused. 9-Not Applicable-not attempted and the patient did not perform the activity before the current illness, exacerbation or injury. 10-Not Attempted due to Environmental Limitations-(lack of equipment, weather restraints, etc.). 88-Not Attempted due to Medical Conditions or Safety Concerns. Bed Mobility: 6 Transfers (B,C,W/C): 6 Gait: 6 Stairs: 9 Indoor Mobility (Ambulation): Independent Stairs: Not Applicalbe Prior Devices Use: Walker (4WW) PT Evaluation-Current Subjective Patient agrees to PT. Objective Patient Orientation: Person, Situation Attachments: IV ROM/Strength ROM Lower Extremities bilateral LE WFL Strength Lower Extremities 3+/5 grossly bilateral LE all planes Integumentary/Posture Bowel Incontinence: No Bladder Incontinence: No Posture WFL Neuromuscular (Tone, Coordination, Reflexes) grossly intact coordination Sensory Vision: Functional Hearing: Functional Sensation Right Lower Extremit: Impaired Sensation Left Lower Extremity: Impaired Transfers Sit to Lying (QC): 6 Lying to Sitting/Side of Bed(Q: 6 Sit to Stand (QC): 3 Chair/Ypx-nf-Nhrdp Xfer(QC): 3 Gait Mode of Locomotion: Walk Anticipated Mode of Locomotion: Walk Walk 10 feet (QC): 3 Walk 50 ft with 2 Turns(QC): 3 Walk 150 ft (QC): 3 Distance: 150' Gait Assistive Device: FWW Comments/Gait Description slow, steady gait sequence with VC's for body placement in FWW Balance Sitting Static: Normal Sitting Dynamic: Normal Standing Static: Fair Standing Dynamic: Fair Assessment/Needs 51 y.o. male, will benefit from skilled PT to address functional strength and mobility to improve current LOF to safely return to home at maximum LOF. Rehab Potential: Fair PT Automotive Machinist Goals Automotive Machinist Goals PT Automotive Machinist Goals Time Frame: Jul 31, 2022 Roll Left & Right (QC): 6 Sit to Lying (QC): 6 Lying-Sitting on Side/Bed(QC): 6 Sit to Stand (QC): 6 Chair/Nhv-zo-Uurru Xfer(QC): 6 Toilet Transfer (QC): 6 Walk 10 feet (QC): 6 Walk 50ft with 2 Turns (QC): 6 Walk 150 ft (QC): 6 PT Plan Problem List Problem List: Activity Tolerance, Functional Strength, Safety, Balance, Gait, Transfer Treatment/Plan Treatment Plan: Continue Plan of Care Treatment Plan: Education, Functional Activity Isabela, Functional Strength, Gait, Safety, Therapeutic Exercise, Transfers Treatment Duration: Jul 31, 2022 Frequency: 6 times per week Estimated Hrs Per Day: .25 hour per day Patient and/or Family Agrees t: Yes Time Time In: 1135 Time Out: 1147 DATE: Jul 22, 2022 Total Billed Treatment Time: 12 Total [facility] RENNY TORREZ PT Jul 22, 2022 11:54
--- NOTE | 2022-07-22 15:20 | History & Physical-Hospitalist ---
History of Present Illness HPI/Chief Complaint Patient is a 51-year-old -Moroc[place] male with past medical history of multiple sclerosis who presented to the emergency department due to generalized weakness. He is unable to provide me any history. He states that his son knows everything about his health and when I attempt to ask many questions he refers me to his son. His son is not present nor does the patient know his son's phone number. There is a phone number in the chart that we have attempted to call multiple times with no answer. Because of this history is very limited and based mostly off of what was reported in the emergency department. Apparently his family stated that over the past 4 days he has had a progressive decline in his function. He is normally independent in his ambulation and only requires a walker. He has been able to do this recently though. The emergency room attempted to get him to the [place] where he has a neurologist but they were unable to due to bed capacity issues there. I asked patient who his neurologist is and he states he is unsure and again refers me to his son for this information. He was admitted for presumed MS flare and started on high-dose steroids. Source: patient Date Seen 07/22/22 Time Seen by a Provider: 10:30 Attending Physician No,Local Physician PCP Admitting Physician: Robert Riddle MD Attending Physician: Robert Riddle MD Referring Physician Date of Admission Jul 22, 2022 at 5:56 am Home Medications & Allergies Home Medications Reviewed patient Home Medication Reconciliation performed by pharmacy medication reconciliations systems protection technician and/or nursing. Patients Allergies have been reviewed. Allergies Allergies Coded Allergies omeprazole (Verified Allergy, Unknown, 12/24/05) Past Dmlsojx-Qzwmuc-Hserri Hx Patient Social History Tobacco Use?: No Use of E-Cig and/or Vaping dev: No Substance use?: Yes Substance type: Marijuana Alcohol Use?: No Immunizations Up To Date First/Initial COVID19 Vaccinat: yes Second COVID19 Vaccination Rickie: yes Tetanus Booster (TDap): Unknown Current Status Primary Language: Upper Sorbian Preferred Spoken Language: Upper Sorbian Past Medical History High Cholesterol Multiple Sclerosis Blood Disorders: No Family Medical History Reviewed Nursing Family Hx history limited as patient would not answer questions about his health- see HPI Review of Systems ROS-Unable to Obtain: referred to son who was not present for all questions Constitutional: see HPI Physical Exam Physical Exam Vital Signs Vital Signs - First Documented 07/22/22 01:45 Temp 37.4 Pulse 76 Resp 20 B/P (MAP) 116/74 (88) Pulse Ox 95 O2 Delivery Room Air Capillary Refill : Less Than 3 Seconds Height, Weight, BMI Height: 5'7.00" Weight: 175lbs. oz. 79.126132gl; 32.17 BMI Method:Estimated General Appearance: No Apparent Distress, WD/WN HEENT: PERRL/EOMI, Moist Mucous Membranes; No Scleral Icterus (L), No Scleral Icterus (R) Neck: Normal Inspection, Supple Respiratory: Lungs Clear, No Accessory Muscle Use, No Respiratory Distress Cardiovascular: Regular Rate, Rhythm, No JVD, No Murmur Gastrointestinal: Normal Bowel Sounds, Non Tender, Soft Extremity: Normal Capillary Refill, No Calf Tenderness, No Pedal Edema Neurologic/Psychiatric: Alert, Other (oriented to person and situation, not location) Results Results/Procedures Labs Patient resulted labs reviewed. Imaging [facility] [place], [place] NAME: [facility] P[facility]Z [facility] REC#: [id number] PT STATUS: ADM IN : 1970 PHYSICIAN: GARCÍA JOHANSEN MD ADMIT DATE: 07/22/22 Signed Date of Exam:07/22/22 CHEST 1 VIEW, AP/PA ONLY INDICATION: Cough Portable chest 6:06 AM Heart size and pulmonary vascularity are normal. Lungs are clear. There are no effusions or pneumothoraces. IMPRESSION: No acute abnormalities in the chest. Dictated by: Dictated on workstation # [id number] Dict: 07/22/2241 Trans: 07/22/22932 [facility] [id number] Interpreted by: DAISY CAVAZOS MD Electronically signed by: DAISY CAVAZOS MD 07/22/22932 Assessment/Plan Admission Diagnosis MS Flare Admission Status: Inpatient Order (span 2 midnights) Reason for Inpatient Admission: see below Assessment and Plan MS Flare Generalized weakness Continue high dose steroids Once son arrives will attempt to get neurology information to discuss with him Consider MRI in AM Not currently on any maintenance MS meds- will need Neruology follow up as an outpatient DVT ppx: KENDAL Jordan MD Jul 22, 2022 15:20
[2022-07-22 16:00] VITALS: BP 147/92
[2022-07-22] MEDS ORDERED: ATOR20TA49 PO (16:12)
[2022-07-22] MEDS ORDERED: CHOL-34 PO (16:14)
[2022-07-22 20:00] VITALS: BP 140/75
[2022-07-23] VITALS: BP 116/69
[2022-07-23] MEDS: LACTATED RINGERS 1,000 ML IV SCH ×3 (00:19→18:32)
[2022-07-23] MEDS: methylPREDNISolone 125 MG (Solu-MEDROL) VIAL IV SCH ×4 (04:03→22:22)
[2022-07-23 04:14] VITALS: BP 133/83
[2022-07-23 08:29] VITALS: BP 99/60
[2022-07-23] MEDS: VITAMIN D3 25 MCG (1,000 UNITS) TABLET PO SCH (09:19)
--- NOTE | 2022-07-23 10:23 | Physical Therapy Daily Note ---
PT Daily Note-Current Subjective Patient in bed pre-tx, reports no pain, agrees to PT. Patient likes to be called "Paul", reports wanting to take a bath, doesn't want to use the hospital walker, and feels like he's not being able to do what he wants. Pain Section J - Health Conditions 1. Rarely or not at all 2. Occasionally 3. Frequently 4. Almost constantly 8. Unable to answer Pain Effect on Sleep: 1 Pain Interference with Therapy: 1 Pain Interference w/Day-to-Day: 1 Appearance Patient at EOB post-tx eating with nurse call, phone, tray, all needs met. Mental Status Patient Orientation: Person, Confused, Place, Situation Attachments: IV Transfers SCALE: Activities may be completed with or without assistive devices. 9-Rndavdasdp-cjadspa completes the activity by him/herself with no assistance from a helper. 5-Set-up or Clean-up Assistance-helper sets up or cleans up; patient completes activity. [place] assists only prior to or following the activity. 4-Supervision or Touching Assistance-helper provides verbal cues and/or touchi ng/steadying and/or contact guard assistance as patient completes activity. Assistance may be provided throughout the activity or intermittently. 3-Partial/Moderate Assistance-helper does LESS THAN HALF the effort. [place] lifts, holds or supports trunk or limbs, but provides less than half the effort. 2-Substantial/Maximal Assistance-helper does MORE THAN HALF the effort. [place] lifts or holds trunk or limbs and provides more than half the effort. 0-Zqttpwxxq-foscpg does ALL the effort. Patient does none of the effort to complete the activity. Or, the assistance of 2 or more helpers is required for the patient to complete the activity. If activity was not attempted, code reason: 7-Patient Refused. 9-Not Applicable-not attempted and the patient did not perform the activity before the current illness, exacerbation or injury. 10-Not Attempted due to Environmental Limitations-(lack of equipment, weather restraints, etc.). 88-Not Attempted due to Medical Conditions or Safety Concerns. Roll Left & Right (QC): 6 Sit to Lying (QC): 6 Lying to Sitting/Side of Bed(Q: 6 Sit to Stand (QC): 4 Chair/Azh-kc-Ltjzx Xfer(QC): 4 Independent with bed mobility, SBA with transfers Weight Bearing Right Lower Extremity: Right Full Weight Bearing Left Lower Extremity: Left Full Weight Bearing Gait Training Does the Patient Walk?: Yes Distance: 200' Walk 10 feet (QC): 4 Walk 50 ft with 2 Turns(QC): 4 Walk 150 ft (QC): 4 Gait Persons Needed: 1 Gait Assistive Device: Walker 4 Wheeled SBA, patient walks with good gait speed, good foot clearance, good reciprocal step length. Exercises Seated Therapy Exercises: Ankle pumps, Long arc quads, Hip flexion Seated Reps: 10 Treatments Ambulation, LE Strengthening Assessment Current Status: Fair Progress Patient seemed confused throughout treatment talking about how he'd never been walked yet, but PT eval note stated he walked 150'. He didnt understand why he had to wear a gait belt or mask and seemed upset/confused about it. PT Casualty Insurance Claim Adjuster Goals Casualty Insurance Claim Adjuster Goals PT Jail Goals Time Frame: Jul 31, 2022 Roll Left & Right (QC): 6 Sit to Lying (QC): 6 Lying-Sitting on Side/Bed(QC): 6 Sit to Stand (QC): 6 Chair/Tdc-uj-Jtziz Xfer(QC): 6 Toilet Transfer (QC): 6 Walk 10 feet (QC): 6 Walk 50ft with 2 Turns (QC): 6 Walk 150 ft (QC): 6 PT Plan Problem List Problem List: Activity Tolerance, Functional Strength, Safety, Balance, Gait, Transfer, Bed Mobility, ROM Treatment/Plan Treatment Plan: Continue Plan of Care Treatment Plan: Bed Mobility, Education, Functional Activity Isabela, Functional Strength, Gait, Safety, Therapeutic Exercise, Transfers Treatment Duration: Jul 31, 2022 Frequency: 6 times per week Estimated Hrs Per Day: .25 hour per day Patient and/or Family Agrees t: Yes Safety Risks/Education Patient Education: Gait Training, Transfer Techniques, Correct Positioning, Safety Issues Teaching Recipient: Patient Teaching Methods: Demonstration, Discussion Response to Teaching: Reinforcement Needed Time Time In: 0944 Time Out: 1000 DATE: Jul 23, 2022 Total Billed Treatment Time: 16 Total Billed Treatment 1 visit FA 16' DEYSI WAGNER PT Jul 23, 2022 10:23
[2022-07-23] MEDS ORDERED: ATOR40TA70 PO (11:03)
[2022-07-23 11:38] VITALS: BP 117/74
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
--- NOTE | 2022-07-23 15:15 | Progress Note - Hospitalist ---
Subjective HPI/CC On Admission Date Seen by Provider: Jul 23, 2022 Patient is a 51-year-old -Maldivian male with past medical history of multiple sclerosis who presented to the emergency department due to generalized weakness. He is unable to provide me any history. He states that his son knows everything about his health and when I attempt to ask many questions he refers me to his son. His son is not present nor does the patient know his son's phone number. There is a phone number in the chart that we have attempted to call multiple times with no answer. Because of this history is very limited and based mostly off of what was reported in the emergency department. Apparently his family stated that over the past 4 days he has had a progressive decline in his function. He is normally independent in his ambulation and only requires a walker. He has been able to do this recently though. The emergency room attempted to get him to the [place] where he has a neurologist but they were unable to due to bed capacity issues there. I asked patient who his neurologist is and he states he is unsure and again refers me to his son for this information. He was admitted for presumed MS flare and started on high-dose steroids. Subjective/Events-last exam Pt reports still feeling confused and continues to defer questions to his son who is not currently present. Later returned to room to talk with son. Son is hopeful patient can get on maintenance medication for his MS. States patient's confusion is abnormal. Objective Exam Vital Signs Vital Signs Date Time Temp Pulse Resp B/P (MAP) Pulse Ox O2 Delivery O2 Flow Rate FiO2 07/25/22 11:32 36.4 62 18 119/73 (88) 99 Room Air Capillary Refill : Less Than 3 Seconds General Appearance: No Apparent Distress, Chronically ill Cardiovascular: Regular Rate, Rhythm, No Murmur Gastrointestinal: Normal Bowel Sounds, Non Tender, Soft Neurologic/Psychiatric: Alert, Other (oriented to person and place only) Results/Procedures Lab Patient resulted labs reviewed. Assessment/Plan Assessment and Plan Assess & Plan/Chief Complaint MS Flare Generalized weakness Continue high dose steroids Spoke with son who is hopeful for transfer, I did discuss with him the difficulties with transfer and bed capacity at tertiary centers and transfer may not be possible at this time Son mostly hopeful to get patient on maintenance medication it seems at this time Consider MRI in AM- unable to contact any neurologist regarding recs for this and not indicated on uptodate recommendations Not currently on any maintenance MS meds- will need Neruology follow up as an outpatient DVT ppx: SCDs Diagnosis/Problems Diagnosis/Problems (1) Exacerbation of multiple sclerosis Status: Acute KENDAL CUMMINGS MD Jul 23, 2022 15:15
[2022-07-23 16:42] VITALS: BP 133/85
[2022-07-23 19:11] VITALS: BP 118/69
[2022-07-24] VITALS (7 sets, daily range): BP systolic 100–144; BP diastolic 53–77
[2022-07-24] MEDS: methylPREDNISolone 125 MG (Solu-MEDROL) VIAL IV SCH ×4 (05:12→22:37)
[2022-07-24] MEDS: LACTATED RINGERS 1,000 ML IV SCH ×2 (06:50→18:11)
[2022-07-24] MEDS: VITAMIN D3 25 MCG (1,000 UNITS) TABLET PO SCH (08:25)
--- NOTE | 2022-07-24 11:20 | Progress Note - Hospitalist ---
Subjective HPI/CC On Admission Date Seen by Provider: Jul 24, 2022 Patient is a 51-year-old -Marshallese male with past medical history of multiple sclerosis who presented to the emergency department due to generalized weakness. He is unable to provide me any history. He states that his son knows everything about his health and when I attempt to ask many questions he refers me to his son. His son is not present nor does the patient know his son's phone number. There is a phone number in the chart that we have attempted to call multiple times with no answer. Because of this history is very limited and based mostly off of what was reported in the emergency department. Apparently his family stated that over the past 4 days he has had a progressive decline in his function. He is normally independent in his ambulation and only requires a walker. He has been able to do this recently though. The emergency room attempted to get him to the [place] where he has a neurologist but they were unable to due to bed capacity issues there. I asked patient who his neurologist is and he states he is unsure and again refers me to his son for this information. He was admitted for presumed MS flare and started on high-dose steroids. Subjective/Events-last exam Pt reports feeling well today. No complaints. Still seems slightly confused but improved from yesterday. States he fell last night but RN reports no falls reported by night RN or telesitter. I updated him on process for possible neurology transfer and that the [facility] I spoke to were full as were 5 other hospitals. I attempted to call his son and update him as well butno answer. Objective Exam Vital Signs Vital Signs Date Time Temp Pulse Resp B/P (MAP) Pulse Ox O2 Delivery O2 Flow Rate FiO2 07/25/22 11:32 36.4 62 18 119/73 (88) 99 Room Air Capillary Refill : Less Than 3 Seconds General Appearance: No Apparent Distress, Chronically ill Respiratory: Lungs Clear, No Respiratory Distress Cardiovascular: Regular Rate, Rhythm, No Murmur Neurologic/Psychiatric: Alert, Oriented x3 Results/Procedures Lab Patient resulted labs reviewed. Assessment/Plan Assessment and Plan Assess & Plan/Chief Complaint MS Flare Generalized weakness Continue high dose steroids day 3 Spoke with son who is hopeful for transfer, I did discuss with him the difficulties with transfer and bed capacity at tertiary centers and transfer may not be possible at this time Son mostly hopeful to get patient on maintenance medication it seems at this time Consider MRI next week- unable to contact any neurologist regarding recs for this and not indicated on uptodate recommendations Not currently on any maintenance MS meds- will need Neruology follow up as an outpatient DVT ppx: SCDs Diagnosis/Problems Diagnosis/Problems (1) Exacerbation of multiple sclerosis Status: Acute KENDAL CUMMINGS MD Jul 24, 2022 11:20
--- NOTE | 2022-07-24 12:50 | Physical Therapy Daily Note ---
PT Daily Note-Current Subjective Pt in good spirits, willing to ambulate. He admits having some memory issues that affect conversation. Pain Section J - Health Conditions 1. Rarely or not at all 2. Occasionally 3. Frequently 4. Almost constantly 8. Unable to answer Pain Effect on Sleep: 1 Pain Interference with Therapy: 1 Pain Interference w/Day-to-Day: 1 Transfers SCALE: Activities may be completed with or without assistive devices. 9-Kinhszhwqf-vzinicu completes the activity by him/herself with no assistance from a helper. 5-Set-up or Clean-up Assistance-helper sets up or cleans up; patient completes activity. [place] assists only prior to or following the activity. 4-Supervision or Touching Assistance-helper provides verbal cues and/or touching/steadying and/or contact guard assistance as patient completes activity. Assistance may be provided throughout the activity or intermittently. 3-Partial/Moderate Assistance-helper does LESS THAN HALF the effort. [place] lifts, holds or supports trunk or limbs, but provides less than half the effort. 2-Substantial/Maximal Assistance-helper does MORE THAN HALF the effort. [place] lifts or holds trunk or limbs and provides more than half the effort. 7-Heiztcufs-dszela does ALL the effort. Patient does none of the effort to complete the activity. Or, the assistance of 2 or more helpers is required for the patient to complete the activity. If activity was not attempted, code reason: 7-Patient Refused. 9-Not Applicable-not attempted and the patient did not perform the activity before the current illness, exacerbation or injury. 10-Not Attempted due to Environmental Limitations-(lack of equipment, weather restraints, etc.). 88-Not Attempted due to Medical Conditions or Safety Concerns. Weight Bearing Right Lower Extremity: Right Full Weight Bearing Left Lower Extremity: Left Full Weight Bearing Gait Training Ambulate 350ft with 4wheel walker and SBA. Assessment Current Status: Good Progress Patient supervision in his room for decision making during transfers and gait in close quarters. Gait was stable using 4wheel walker. Pt will benefit from continued therapy to promote safety. PT Pre Sales Technical Consultant Goals Pre Sales Technical Consultant Goals PT Pre Sales Technical Consultant Goals Time Frame: Jul 31, 2022 Roll Left & Right (QC): 6 Sit to Lying (QC): 6 Lying-Sitting on Side/Bed(QC): 6 Sit to Stand (QC): 6 Chair/Cfk-jn-Nhpov Xfer(QC): 6 Toilet Transfer (QC): 6 Walk 10 feet (QC): 6 Walk 50ft with 2 Turns (QC): 6 Walk 150 ft (QC): 6 PT Plan Treatment/Plan Treatment Plan: Continue Plan of Care Treatment Plan: Bed Mobility, Education, Functional Activity Isabela, Functional Strength, Gait, Safety, Therapeutic Exercise, Transfers Treatment Duration: Jul 31, 2022 Frequency: 6 times per week Estimated Hrs Per Day: .25 hour per day Patient and/or Family Agrees t: Yes Time Time In: 1005 Time Out: 1015 DATE: Jul 24, 2022 Total Billed Treatment Time: 10 Total Billed Treatment visit, gait 10 min JOEL POLANCO PT Jul 24, 2022 12:49
[2022-07-25] MEDS: methylPREDNISolone 125 MG (Solu-MEDROL) VIAL IV SCH ×4 (04:17→20:25)
[2022-07-25 04:19] VITALS: BP 128/64
[2022-07-25] MEDS: LACTATED RINGERS 1,000 ML IV SCH (06:13)
[2022-07-25 08:28] VITALS: BP 122/76
[2022-07-25] MEDS: VITAMIN D3 25 MCG (1,000 UNITS) TABLET PO SCH (08:44)
[2022-07-25 11:32] VITALS: BP 119/73
--- NOTE | 2022-07-25 11:42 | Progress Note - Hospitalist ---
Subjective HPI/CC On Admission Date Seen by Provider: Jul 25, 2022 Patient is a 51-year-old -[place] male with past medical history of multiple sclerosis who presented to the emergency department due to generalized weakness. He is unable to provide me any history. He states that his son knows everything about his health and when I attempt to ask many questions he refers me to his son. His son is not present nor does the patient know his son's phone number. There is a phone number in the chart that we have attempted to call multiple times with no answer. Because of this history is very limited and based mostly off of what was reported in the emergency department. Apparently his family stated that over the past 4 days he has had a progressive decline in his function. He is normally independent in his ambulation and only requires a walker. He has been able to do this recently though. The emergency room attempted to get him to the [place] where he has a neurologist but they were unable to due to bed capacity issues there. I asked patient who his neurologist is and he states he is unsure and again refers me to his son for this information. He was admitted for presumed MS flare and started on high-dose steroids. Subjective/Events-last exam Pt reports doing well. No new complaints other than wanting to walk the halls and continue to work on his strength. Objective Exam Vital Signs Vital Signs Date Time Temp Pulse Resp B/P (MAP) Pulse Ox O2 Delivery O2 Flow Rate FiO2 07/25/22 11:32 36.4 62 18 119/73 (88) 99 Room Air Capillary Refill : Less Than 3 Seconds General Appearance: No Apparent Distress, Chronically ill Respiratory: Lungs Clear, No Respiratory Distress Cardiovascular: Regular Rate, Rhythm, No Murmur Gastrointestinal: Normal Bowel Sounds, Soft Neurologic/Psychiatric: Alert, Oriented x3 (but slowed mentation and some lack of insight) Results/Procedures Lab Patient resulted labs reviewed. Assessment/Plan Assessment and Plan Assess & Plan/Chief Complaint MS Flare Generalized weakness Continue high dose steroids day 4 Spoke with son who is hopeful for transfer, I did discuss with him the difficulties with transfer and bed capacity at tertiary centers and transfer may not be possible at this time Son mostly hopeful to get patient on maintenance medication it seems at this time Unable to get him into any facility with neurology despite multiple phone calls Did discuss with local neurologist who recommend MRI in AM and continue steroids Not currently on any maintenance MS meds- will need Neruology follow up as an outpatient DVT ppx: SCDs Diagnosis/Problems Diagnosis/Problems (1) Exacerbation of multiple sclerosis Status: Acute KENDAL CUMMINGS MD Jul 25, 2022 11:42
[2022-07-25 15:23] VITALS: BP 138/84
[2022-07-25 19:18] VITALS: BP 124/85
[2022-07-25 23:58] VITALS: BP 128/72
[2022-07-26 03:49] VITALS: BP 116/65
[2022-07-26] MEDS: methylPREDNISolone 125 MG (Solu-MEDROL) VIAL IV SCH ×2 (04:30→10:22)
[2022-07-26 08:00] VITALS: BP 142/90
[2022-07-26] MEDS: VITAMIN D3 25 MCG (1,000 UNITS) TABLET PO SCH (09:12)
[2022-07-26] MEDS ORDERED: GADOTERATE 0.5 MMOL/ML (CLARISCAN) 20 ML VIAL IV NR (10:30)
--- NOTE | 2022-07-26 10:35 | Physical Therapy Daily Note ---
PT Daily Note-Current Subjective Patient agree to PT. No c/o at this time. Pain Section J - Health Conditions 1. Rarely or not at all 2. Occasionally 3. Frequently 4. Almost constantly 8. Unable to answer Pain Effect on Sleep: 1 Pain Interference with Therapy: 1 Pain Interference w/Day-to-Day: 1 Mental Status Patient Orientation: Person, Time, Situation Transfers SCALE: Activities may be completed with or without assistive devices. 2-Qijdtxdnxf-jgqjeur completes the activity by him/herself with no assistance from a helper. 5-Set-up or Clean-up Assistance-helper sets up or cleans up; patient completes activity. [place] assists only prior to or following the activity. 4-Supervision or Touching Assistance-helper provides verbal cues and/or touching/steadying and/or contact guard assistance as patient completes activity. Assistance may be provided throughout the activity or intermittently. 3-Partial/Moderate Assistance-helper does LESS THAN HALF the effort. [place] lifts, holds or supports trunk or limbs, but provides less than half the effort. 2-Substantial/Maximal Assistance-helper does MORE THAN HALF the effort. [place] lifts or holds trunk or limbs and provides more than half the effort. 0-Nzbisugay-gxfrdy does ALL the effort. Patient does none of the effort to complete the activity. Or, the assistance of 2 or more helpers is required for the patient to complete the activity. If activity was not attempted, code reason: 7-Patient Refused. 9-Not Applicable-not attempted and the patient did not perform the activity before the current illness, exacerbation or injury. 10-Not Attempted due to Environmental Limitations-(lack of equipment, weather restraints, etc.). 88-Not Attempted due to Medical Conditions or Safety Concerns. Sit to Stand (QC): 4 Weight Bearing Right Lower Extremity: Right Full Weight Bearing Left Lower Extremity: Left Full Weight Bearing Gait Training Distance: 800' Walk 10 feet (QC): 4 Walk 50 ft with 2 Turns(QC): 4 Walk 150 ft (QC): 4 Gait Assistive Device: Walker 4 Wheeled safe and functional with no deviation/SBA for safety Exercises Seated Therapy Exercises: Ankle pumps, Long arc quads, Hip flexion Seated Reps: 15 Assessment Patient tolerated treatment well and is up in recliner. Patient progressing with treatment plan and has increase ambulation distance and endurance. PT to continue to increase activity as tolerated by patient. PT Patient Coordinator Goals Detention Goals PT Detention Goals Time Frame: Jul 31, 2022 Roll Left & Right (QC): 6 Sit to Lying (QC): 6 Lying-Sitting on Side/Bed(QC): 6 Sit to Stand (QC): 6 Chair/Pdu-ib-Yhjaz Xfer(QC): 6 Toilet Transfer (QC): 6 Walk 10 feet (QC): 6 Walk 50ft with 2 Turns (QC): 6 Walk 150 ft (QC): 6 PT Plan Treatment/Plan Treatment Plan: Continue Plan of Care Treatment Plan: Bed Mobility, Education, Functional Activity Isabela, Functional Strength, Gait, Safety, Therapeutic Exercise, Transfers Treatment Duration: Jul 31, 2022 Frequency: 6 times per week Estimated Hrs Per Day: .25 hour per day Patient and/or Family Agrees t: Yes Time Time In: 855 Time Out: 908 DATE: Jul 26, 2022 Total Billed Treatment Time: 13 Total Billed Treatment 1 visit FA 13 min RENNY TORREZ PT Jul 26, 2022 10:35
--- NOTE | 2022-07-26 10:37 | Occ Therapy Progress Note ---
Therapy Progress Note OT attempted to see pt. Pt in procedure at this time. Will attempt at later time. TATIANNA LOPEZ Jul 26, 2022 10:37
--- NOTE | 2022-07-26 11:46 | Diagnostic Imaging Report ---
PROCEDURE: MR imaging of the brain with and without contrast. TECHNIQUE: Multiplanar, multisequence MR imaging of the brain was performed with and without contrast. INDICATION: Multiple sclerosis. FINDINGS: The ventricles and sulci are prominent, consistent with cerebral volume loss. Periventricular white matter changes are noted. The patient reportedly has a diagnosis of multiple sclerosis. No acute intra-axial or extra-axial hemorrhage is seen. There is no diffusion restriction identified to suggest acute ischemia. No abnormal enhancement is identified following contrast. Specifically, no abnormal enhancement of the white matter plaques is identified to suggest active demyelination. The corpus callosum is unremarkable. The sella and parasellar structures are unremarkable. IMPRESSION: Periventricular white matter disease, corresponding to the patient's diagnosis of multiple sclerosis. No finding to suggest active demyelination is identified. No acute features are detected. Dictated by: Dictated on workstation # [id number]
[2022-07-26 12:00] VITALS: BP 109/81
[2022-07-26] MEDS ORDERED: PRD20T PO (12:51)
--- NOTE | 2022-07-26 13:00 | Diagnostic Imaging Report ---
PROCEDURE: MR imaging cervical spine without contrast. TECHNIQUE: Multiplanar, multisequence MR imaging of the cervical spine was performed without contrast. INDICATION: Suspicion for MS exacerbation. COMPARISON: I have no prior cervical MRI; we can correlate with a CT cervical 09/15/2020. FINDINGS: The cervical spinal cord volume and morphology was normal. There is equivocal midline dorsal altered elevated T2 signal within the cord at the C4-C5 disc space posteriorly; however, this is only seen on sagittal T2 fat-saturated images as well as the axial T2 sequences and is not reproduced on the FLAIR or sagittal T2. This is equivocal. No other potential plaque is found. No cord compression. CSF circumscribes the cord at each vertebral body and disc space level. No paravertebral mass, hemorrhage, or fluid collection. Cervical alignment is stable. Marrow signal intensity is normal. At C3-C4, osteophyte disc material effaces the ventral thecal sac but results in no significant canal stenosis or foraminal narrowing. At C5-C6, osteophyte disc material effaces the ventral thecal sac without substantial canal stenosis. There is a mild degree of biforaminal narrowing. At C6-C7, mild degenerative change to the disc results in no stenosis. Remaining levels are normal. IMPRESSION: 1. No convincing primary cord pathology; however, equivocal altered T2 elevated signal at midline dorsal cord. C4-C5 could conceivably reflect the sequelae of a demyelinating plaque but again is not reproduced on the typically more sensitive FLAIR sequences. 2. Mild degenerative changes without substantial canal or foraminal stenosis with normal alignment, and no acute bony pathology. Dictated on workstation # [id number]
--- NOTE | 2022-07-26 13:30 | Occupational Ther Daily Note ---
OT Current Status-Daily Note Subjective Pt sitting EOB, alert. Agrees to therapy. C/o no pain. Visitor present. Pt requires encouragement to participate. Reports he is being discharged today. Mental Status/Objective Patient Orientation: Person, Place, Time, Situation ADL-Treatment Pt eating on arrival. Eats independently using silverware and opens all containers. Pt EOB post tx, phone/call light in reach. All needs met. Therapy Code Descriptions/Definitions Functional [place] Measure: 0=Not Assessed/NA 4=Minimal Assistance 1=Total Assistance 5=Supervision or Setup 2=Maximal Assistance 6=Modified [place] 3=Moderate Assistance 7=Complete IndependenceSCALE: Activities may be completed with or without assistive devices. 2-Qutbrmurid-pwlnjbw completes the activity by him/herself with no assistance from a helper. 5-Set-up or Clean-up Assistance-helper sets up or cleans up; patient completes activity. [place] assists only prior to or following the activity. 4-Supervision or Touching Assistance-helper provides verbal cues and/or touching/steadying and/or contact guard assistance as patient completes activity. Assistance may be provided throughout the activity or intermittently. 3-Partial/Moderate Assistance-helper does LESS THAN HALF the effort. [place] lifts, holds or supports trunk or limbs, but provides less than half the effort. 2-Substantial/Maximal Assistance-helper does MORE THAN HALF the effort. [place] lifts or holds trunk or limbs and provides more than half the effort. 1-Optxvownw-klxpzr does ALL the effort. Patient does none of the effort to complete the activity. Or, the assistance of 2 or more helpers is required for the patient to complete the activity. If activity was not attempted, code reason: 7-Patient Refused. 9-Not Applicable-not attempted and the patient did not perform the activity before the current illness, exacerbation or injury. 10-Not Attempted due to Environmental Limitations-(lack of equipment, weather restraints, etc.). 88-Not Attempted due to Medical Conditions or Safety Concerns. Other Treatment Pt participates in UE exercises in reps of 10 each, requiring no breaks in between, to improve UE strength and endurance for mobility and self care skills. Pt required encouragement to participate. Educated on the purpose of OT and the importance of mobility. Skill instruction provided for proper form and technique. OT Manufacturing Assembler Goals Care Home Goals Time Frame: Jul 30, 2022 Eating (QC): 6 Oral Hygiene (QC): 6 Toileting Hygiene (QC): 6 Shower/Bathe Self (QC): 4 Upper Body Dressing (QC): 5 Lower Body Dressing (QC): 4 On/Off Footwear (QC): 4 Additional Goals: 1-Demonstrate ADL Tasks, 2-Verbalize Understanding, 3- ImproveStrength/Isabela 1=Demonstrate adherence to instructed precautions during ADL tasks. 2=Patient will verbalize/demonstrate understanding of assistive devices/modifications for ADL. 3=Patient will improve strength/tolerance for activity to enable patient to perform ADL's. OT Education/Plan Problem List/Assessment Assessment: Decreased Activ Tolerance, Impaired Self-Care Skills Discharge Recommendations Plan/Recommendations: Continue POC Treatment Plan/Plan of Care Patient would benefit from OT for education, treatment and training to promote independence in ADL's, mobility, safety and/or upper extremity function for ADL's. Plan of Care: ADL Retraining, Functional Mobility, UE Funct Exercise/Act Treatment Duration: Jul 30, 2022 Frequency: 3 times per week (3-5 times per week) Rehab Potential: Fair Time Start Time: 13:17 Stop Time: 13:25 DATE: Jul 26, 2022 Total Time Billed (hr/min): 8 Billed Treatment Time 1 visit EX (8 min) TATIANNA LOPEZ Jul 26, 2022 13:30
[2022-07-26 13:45] VITALS: BP 109/81
--- NOTE | 2022-07-26 16:52 | Discharge Summary ---
Discharge Summary Reconcile Patient Problems Problems Reviewed?: Yes Instructions for Patient [place] Assessment/Instructions See instructions Physician to follow Patient: PCP Discharge Diet for Home: No Restrictions Hospital Course Date of Admission: Jul 22, 2022 at 05:56 Admission Diagnosis : MS exacerbation Family Physician/Provider: KrystinLocal Physician Date of Discharge: 07/26/22 Discharge Diagnosis: MS exacerbation Hospital Course: Tone Sanders is a 51 year old male admitted with a multiple sclerosis exacerbation. He was treated with high dose IV steroids. His symptoms improved. An attempt was made to transfer the patient to a facility with neurology but no accepting facilities were able to be found. An MRI showed no acute demyelination. He was transitioned to oral Prednisone. He will follow up with neurology in [place] as scheduled. He was set up with an appointment with Dr. Max in November. He will resume home health care on discharge. Labs and Pending Lab Test: Home Meds Active Prednisone 20 Mg Tab 40 Mg PO DAILY 30 Days Reported Atorvastatin Calcium 40 Mg Tablet 20 Mg PO HS TAKES OF A 40MG Vitamin D3 (Cholecalciferol (Vitamin D3)) 25 Mcg (1000 Unit) Tablet 25 Mcg PO HS Patient Allergies: Coded Allergies: omeprazole (Verified Allergy, Unknown, 12/24/05) Height (Feet): 5 Height (Inches): 7.00 Weight (Pounds): 175 Home Health Need/Face to Face Date of Face to Face: Jul 26, 2022 Clinical Findings: Generalized weakness and fatigue, Muscle weakness, Unsteady gait I have seen Pt bhcd-lp-mvee: Yes Discharged To: Home Diagnosis/Conditions: Multiple sclerosis Debility Problems/Diagnosis/Condition: (1) Multiple sclerosis (2) Debility Patient is Homebound due to: [place]ore fall risk due to instabilty, Muscle weakness Homebound Status Due to the above stated illness, injury or surgical procedure (medical condition or diagnosis) and associated clinical findings, the patient is homebound because of his/her inability to leave home except with aid of a supportive device and/or person AND leaving the home requires a considerable and taxing effort or is medically contraindicated. Pt req the following assistanc: Aid of another person, Walker Home Health Nursing Orders Home Health Services Order: Nursing Services, [employer] [place] [employer]-Evaluate & Treat, Physical Therapy-Evaluate & Treat Home Health Infusion Therapy Line Start Date: Jul 22, 2022 Therapy Orders Therapy Orders: OT (must have SN or PT order), Physical Therapy Therapy Specific Orders: Eval assistive deivces, Teach enviro modifications/safety, Gait training, Increase strength/endurance Certify Stmt I certify that this patient is under my care and that I, a nurse practitioner or a physician; a certified nursing assistant working with me, had a face to face encounter that - meets the physician face to face encounter requirements with this patient as dated. Discharge Physical Exam General: Alert, Cooperative, No Acute Distress HEENT: Atraumatic, EOMI Lungs: Clear to Auscultation, Normal Air Movement Heart: Regular Rate, No Murmurs Abdomen: Normal Bowel Sounds, Soft, No Tenderness Extremities: No Edema, No Tenderness/Swelling Skin: No Rashes, No Significant Lesion Neuro: Other (motor weakness) Psych/Mental Status: Mental Status NL, Mood NL ROMERO BRUNO MD Jul 26, 2022 16:44
== END 2022-07-26 13:45 | disposition home health service (06) | DRG 60 ==
LOC: EDUNIT# 01:23 → ER 01:30 → EDLOC 05:56 → 4TH 05:56
PROVIDERS: ADMIT Internal Medicine; ATTEND Internal Medicine
DX: G35 Multiple sclerosis (principal); E78.00 Pure hypercholesterolemia, unspecified; Z79.899 Other long term (current) drug therapy; Z20.822 Contact with and (suspected) exposure to COVID-19; Z28.310 Unvaccinated for COVID-19
CPT/HCPCS: 36415; 70553; 71045; 72141; 80053; 81000; 82550; 83735; 84443; 85025; 87636; 99283

== ENCOUNTER 2023-06-16 21:38 | Emergency (ER) | payer OTHER ==
[~2023-06-16] VITALS: Ht 170.1 cm; Wt 95.2 kg
[~2023-06-16 21:38] MED LIST changes: +ATOR20TA49 PO; +ATOR40TA70 PO; +CHOL-34 PO; -MECL-149 PO; +MECL-291 PO; +PRD20T PO
[2023-06-16] MEDS ORDERED: NS IV 1000 ML 1,000 ML IV STA (21:50)
--- NOTE | 2023-06-16 21:58 | ED General ---
General Stated Complaint: WEAKNESS Source of Information: EMS Exam Limitations: Physical Impairments History of Present Illness Date Seen by Provider: Jun 16, 2023 Time Seen by Provider: 21:40 Initial Comments Patient is a 52-year-old male with a history of multiple sclerosis ([facility] patient) who presents to the emergency room by ambulance with a chief complaint of altered mental status, weakness, worsening incontinence. EMS Medic reports there was intense marijuana odor in the home on their arrival. Patient reportedly received multiple vaccinations this morning from his home health nurse (RSV, FLU and tetanus) and then throughout the day became more more confused and weak with repeated bouts of incontinence. He denies any complaints at this point, no chest pain, shortness of breath, abdominal pain, nausea or vomiting. He denies headache. He does appear to be a little "off" but seems to be answering appropriately. On initial report from EMS there was concern for vision change. He is noted at presentation to have a temp of 38.1/100.6 F. He is nor tachycardic, heart rate is sinus 84 beats a minute. Blood pressure is 105/91. Room air oxygen saturations are 94%. Patient is disoriented to time/date.. He does know that he is in [place] but defers to his son for further history (and he is not yet present.) Was reportedly chilling at home all day and the family was turning up the thermostat in the home for his comfort. Timing/Duration: 12 Hours Severity: Severe Associated Systoms: Denies Symptoms Allergies and Home Medications Allergies Coded Allergies: omeprazole (Verified Allergy, Unknown, 12/24/05) Patient Home Medication List Home Medication List Reviewed: Yes Atorvastatin Calcium (Atorvastatin Calcium) 40 Mg Tablet, 20 MG PO HS, (Reported) Entered as Reported by: GIGI DONG on 07/23/22 1103 Cholecalciferol (Vitamin D3) (Vitamin D3) 25 Mcg (1000 Unit) Tablet, 25 MCG PO HS, (Reported) Entered as Reported by: JACK SOL on 07/22/22 1614 Prednisone (Prednisone) 20 Mg Tab, 40 MG PO DAILY Prescribed by: ROMERO BRUNO on 07/26/22 1251 Review of Systems Review of Systems Constitutional: see HPI unable to obtain due to confusion/disorientation Past Paiappf-Bjdumd-Fmkmhu Hx Immunizations Up To Date First/Initial COVID19 Vaccinat: yes Second COVID19 Vaccination Rickie: yes Third COVID19 Vaccination Date: yes Past Medical History Surgeries: No Respiratory: No Cardiac: Yes High Cholesterol Neurological: Yes Multiple Sclerosis Reproductive Disorders: No Gastrointestinal: No Musculoskeletal: Yes Endocrine: No HEENT: No (GLASSES) Cancer: No Psychosocial: Yes (MOOD DISORDER. ) Integumentary: No Blood Disorders: No Family Medical History history limited as patient would not answer questions about his health- see HPI Physical Exam Vital Signs Vital Signs - First Documented 06/16/23 06/16/23 21:40 23:14 Temp 38.0 Pulse 85 Resp 16 B/P (MAP) 129/88 (102) Pulse Ox 96 O2 Delivery Room Air O2 Flow Rate 1.50 Capillary Refill : Height, Weight, BMI Height: 5'7.00" Weight: 175lbs. oz. 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 right LE - able to hold up for >5s; equal strength biilateral UE. normal sensation throughout; tongue questionably protrudes to the left a little ? he does not have double vision - does have some rotatory nystagmus; normal accomodation. no facial droop - clear speech); No Sen piter Deficit Skin: Normal Color, Warm/Dry, Other (feels febrile (confirmed with TA temp of 38.1)) Focused Exam Lactate Level 06/16/23 22:03: Lactic Acid Level 1.60 Lactic Acid Level Laboratory Tests Test 06/16/23 22:03 Lactic Acid Level 1.60 MMOL/L (0.50-2.00) Progress/Results/Core Measures Suspected Sepsis SIRS Temperature: Pulse: Respiratory Rate: Laboratory Tests 06/16/23 21:45: White Blood Count 3.8L Blood Pressure / Mean: 06/16/23 22:03: Lactic Acid Level 1.60 Laboratory Tests 06/16/23 21:45: Creatinine 0.89, INR Comment 1.0, Platelet Count 145, Total Bilirubin 0.6 Results/Orders Lab Results Laboratory Tests Test 06/16/23 21:45 06/16/23 21:50 06/16/23 22:00 06/16/23 22:03 Range/Units White Blood Count 3.8 L 4.3-11.0 10^3/uL Red Blood Count 4.57 4.30-5.52 10^6/uL Hemoglobin 13.5 13.3-17.7 g/dL Hematocrit 41 40-54 % Mean Corpuscular Volume 90 80-99 fL Mean Corpuscular Hemoglobin 30 25-34 pg Mean Corpuscular Hemoglobin Concent 33 32-36 g/dL Red Cell Distribution Width 12.5 10.0-14.5 % Platelet Count 145 130-400 10^3/uL Mean Platelet Volume 11.6 9.0-12.2 fL Immature Granulocyte % (Auto) 0 % Neutrophils (%) (Auto) 67 42-75 % Lymphocytes (%) (Auto) 19 12-44 % Monocytes (%) (Auto) 13 H 0-12 % Eosinophils (%) (Auto) 0 0-10 % Basophils (%) (Auto) 1 0-10 % Neutrophils # (Auto) 2.5 1.8-7.8 10^3/uL Lymphocytes # (Auto) 0.7 L 1.0-4.0 10^3/uL Monocytes # (Auto) 0.5 0.0-1.0 10^3/uL Eosinophils # (Auto) 0.0 0.0-0.3 10^3/uL Basophils # (Auto) 0.0 0.0-0.1 10^3/uL Immature Granulocyte # (Auto) 0.0 0.0-0.1 10^3/uL Prothrombin Time 13.8 12.2-14.7 SEC INR Comment 1.0 0.8-1.4 Activated Partial Thromboplast Time 28 24-35 SEC Sodium Level 139 135-145 MMOL/L Potassium Level 3.7 3.6-5.0 MMOL/L Chloride Level 107 98-107 MMOL/L Carbon Dioxide Level 21 21-32 MMOL/L Anion Gap 11 5-14 MMOL/L Blood Urea Nitrogen 8 7-18 MG/DL Creatinine 0.89 0.60-1.30 MG/DL Estimat Glomerular Filtration Rate 102 BUN/Creatinine Ratio 9 Glucose Level 136 H 70-105 MG/DL Calcium Level 8.8 8.5-10.1 MG/DL Corrected Calcium 8.9 8.5-10.1 MG/DL Magnesium Level 1.8 1.6-2.4 MG/DL Total Bilirubin 0.6 0.1-1.0 MG/DL Aspartate Amino Transf (AST/SGOT) 16 5-34 U/L Alanine Aminotransferase (ALT/SGPT) 11 0-55 U/L Alkaline Phosphatase 111 40-136 U/L Total Protein 6.6 6.4-8.2 GM/DL Albumin 3.9 3.2-4.5 GM/DL Glucometer 135 H 70-110 MG/DL Influenza Type A (RT-PCR) Not Detected Not Detecte Influenza Type B (RT-PCR) Not Detected Not Detecte SARS-CoV-2 RNA (RT-PCR) Not Detected Not Detecte Lactic Acid Level 1.60 0.50-2.00 MMOL/L Test 06/16/23 22:18 Range/Units Urine Color YELLOW Urine Clarity SLIGHTLY CLOUDY Urine pH 6.0 5-9 Urine Specific [place] 1.025 H 1.016-1.022 Urine Protein NEGATIVE NEGATIVE Urine Glucose (UA) NEGATIVE NEGATIVE Urine Ketones 1+ H NEGATIVE Urine Nitrite NEGATIVE NEGATIVE Urine Bilirubin 1+ H NEGATIVE Urine Urobilinogen 4.0 < = 1.0 MG/DL Urine Leukocyte Esterase NEGATIVE NEGATIVE Urine RBC (Auto) TRACE H NEGATIVE Urine RBC 2-5 H /HPF Urine WBC 2-5 /HPF Urine Squamous Epithelial Cells 2-5 /HPF Urine Crystals PRESENT H /LPF Urine Amorphous Sediment RARE ELIESER URATES H /LPF Urine Bacteria TRACE /HPF Urine Casts NONE /LPF Urine Mucus LARGE H /LPF Urine Culture Indicated CULTURE PENDING Micro Results Microbiology 06/16/23 Urine Culture - Final, Complete NO GROWTH 06/16/23 Blood Culture - Preliminary, Resulted 06/16/23 Blood Culture - Preliminary, Resulted Staph, Coag Neg ([employer]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) My Orders Orders - MAC ORTH MD Cbc And Automated Diff (06/16/23 21:50) Comprehensive Metabolic Panel (06/16/23 21:50) Blood Culture (06/16/23 21:50) Sputum Culture (06/16/23 21:50) Urinalysis (06/16/23 21:50) Urine Culture (06/16/23 21:50) Protime With Inr (06/16/23 21:50) Partial Thromboplastin Time (06/16/23 21:50) Chest 1 View, Ap/Pa Only (06/16/23 21:50) Ed Iv/Invasive Line Start (06/16/23 21:50) Ed Iv/Invasive Line Start (06/16/23 21:50) Vital Signs Adult Sepsis Patie Q15M (06/16/23 21:50) O2 (06/16/23 21:50) Remove Rings In Anticipation O (06/16/23 21:50) Lactic Acid Analyzer (06/16/23 21:50) Covid 19 Inhouse Test (06/16/23 21:50) Influenza A And B By Pcr (06/16/23 21:50) Ct Head Wo (06/16/23 21:50) Acetaminophen Tablet (Acetaminophen Ta (06/16/23 22:00) Ns Iv 1000 Ml (Ns Iv 1000 Ml) (06/16/23 21:50) Magnesium (06/16/23 22:00) Methylprednisolone Sod Succ (Methylpredn (06/16/23 23:45) Methylprednisolone Sod Succ (Methylpredn (06/17/23 07:15) General/Regular (06/17/23 Breakfast) Medications Given in ED Vital Signs/I&O 06/16/23 06/16/23 06/16/23 06/17/23 21:40 22:00 23:14 00:15 Temp 38.0 38.0 37.1 Pulse 85 73 Resp 16 17 B/P (MAP) 129/88 (102) 119/86 (97) Pulse Ox 96 98 99 O2 Delivery Room Air Nasal Cannula Room Air O2 Flow Rate 1.50 06/17/23 11:30 Pulse 98 Resp 16 B/P (MAP) 104/75 Pulse Ox 100 O2 Delivery Room Air Capillary Refill : Progress Note #1: Time: 00:03 Progress Note Called into the room by the son (overwhelming smell of marijuana from him) who was upset that there seemed to have been some miscommunication regarding where to admit the patient. I had gotten the impression that as the patient's son asked why he couldn't be admitted here - that he desired admission locally. When I had orders written and meds written for (after discussion with Dr Peña - Hospitalist @ 2251) , the son became upset and questioned the nurse and stated "well if steroids are all you are going to do, then we want to be transferred so mewhere there is a neurologist". I attempted to educate the son in that the first line course of treatment is steroids and that has been what has improved him here in the past -and has been successful. He became increasingly belligerant, focusing on the fact that i misunderstood where he wanted his father admitted. "He's never been this bad before" mentioning that he "lost his vision". I reassured him on my exam he was able to see and count my fingers, also track/follow. Son insists he has never been this way - I had reviewed prior admission in Jul 2022 and according to the documentation - this presentation is quite similar. I attempted to provide reassurance. Son continued to escalate. I finally asked for "2 or 3" places he would like me to check for transfer. He indicated [facility] [place] [facility] ([facility] and [facility] ([facility]). He (son) continues to decline the steroids at this time even after being educated they are first line therapy. Progress Note #2: Time: 02:06 Progress Note I have spent an excessive amount of time in the care and management of this patient with suspicion for flare of multiple sclerosis. Multiple discussions with the son regarding admission versus transfer. He indicated to his nurse, GUANAKO Glass that he did not want his father admitted here due to poor care on the floor at previous admission. He has had stable vital signs briefly dipped his oxygen saturations down to 91% and placed on 1 L with resultant improvement in his oxygenation to 99%. This was then after about an hour weaned off and he has been maintaining saturations at 96%. No respiratory distress or increased work of breathing. 0003 Initial call to [facility] for possible transfer. Son finally did agree to a dose of Solu-Medrol. 250 mg IV was provided at 0123. 0024 : I discussed the case with Dr. Jenkins hospitalist at [facility] and Dr. Harry, neurologist. Dr. Harry indicated that he would like me to call the [facility] in [place] as that is where the son states that he has received his care. 0113 I spoke with [facility] and was advised that they do not have neurology services at their facility. 0129 I was notified by nursing staff that the son was escalating his behavior He was quite agitated - had multiple discussions with Louis, RN and Racquel RN regarding being kept updated on his father's care and he was leaving the [facility]. He was quite frustrated with the length of time it was taking to arrange for transfer. Repeatedly asking the same questions he had been given answers to already. 0142 I spoke with the [facility] in [place], [place] - they are at capacity. 0150 I was finally able to get a hold of someone with [facility], I was directed to and left a message on the nurse transfer line, in order to speak with someone about a possible transfer. Labs and CXR independently reviewed and interpreted by me. CBC is normal - however WBC a little low at 3.8. CH12 normal except for glucose 136. MAg is 1.8, Lactic Acid 1.6. Coag panel WNL. UA reveals trace hematuria. Covid and Influenza negative. CXR shows no infiltrate or effusion. Patient was treated with 650mg Acetaminophen and 1L NS. Has been resting comfortable throughout ED stay with no deterioration in his condition. Currently (0244) HR 76, BP 129/89 and Sats 93% on RA. Progress Note #3: Time: 03:38 Progress Note 0315 Had not heard back from [facility]. At this point I went ahead and called [facility] back as they were willing to take the patient in transfer. I discussed with Dr Jenkins and her accepted. Pending at this point bed assignment. Awaiting call back and attempting to arrange transfer. Diagnostic Imaging Diagonstic Imaging: Xray Plain Films/CT/US/NM/MRI: chest Comments CXR independently reviewed and interpreted by me - no focal infiltrates or effusions Diagonstic Imaging: CT Comments HEad CT noncontrast - per Stat Rad - "atrophy, nonspecific White matter disease, findings appear similar to previous examination" Departure Impression Primary Impression: Exacerbation of multiple sclerosis Additional Impression: Fever Qualified Codes: R50.9 - Fever, unspecified Disposition: 02 XFER SHT-TRM HOSP Condition: Stable Transfer Transfer Reason: Exceeds level of care Time Spoke to Accepting Phy: 03:15 Transfer Progress Notes DIscussed with Dr Jenkins (hospitalist) and Dr Harry (Neuro) Transfer Facility: [facility] Method of Transfer: EMS Departure-Patient Inst. Referrals: NO,LOCAL PHYSICIAN (PCP/Family) Primary Care Physician MAC ROTH MD Jun 16, 2023 21:58
[2023-06-16 21:59] LABS: BASOPHILS % (AUTO) 1 % (0-10); EOSINOPHILS % (AUTO) 0 % (0-10); HEMATOCRIT 41 % (40-54); HEMOGLOBIN 13.5 g/dL (13.3-17.7); LYMPHOCYTES # (AUTO) 0.7 10^3/uL (1.0-4.0); LYMPHOCYTES % (AUTO) 19 % (12-44); MEAN CORPUSCULAR HEMOGLOBIN 30 pg (25-34); MEAN CORPUSCULAR HGB CONC 33 g/dL (32-36); MEAN CORPUSCULAR VOLUME 90 fL (80-99); MEAN PLATELET VOLUME 11.6 fL (9.0-12.2); MONOCYTES # (AUTO) 0.5 10^3/uL (0.0-1.0); MONOCYTES % (AUTO) 13 % (0-12); NEUTROPHILS # (AUTO) 2.5 10^3/uL (1.8-7.8); NEUTROPHILS % (AUTO) 67 % (42-75); PLATELET COUNT 145 10^3/uL (130-400); WHITE BLOOD COUNT 3.8 10^3/uL (4.3-11.0)
[2023-06-16] MEDS ORDERED: ACETAMINOPHEN 325 MG TABLET PO ONE (22:00)
[2023-06-16 22:04] LABS: PROTHROMBIN TIME PATIENT 13.8 SEC (12.2-14.7)
[2023-06-16 22:14] LABS: ALBUMIN 3.9 GM/DL (3.2-4.5); BILIRUBIN,TOTAL 0.6 MG/DL (0.1-1.0); CALCIUM 8.8 MG/DL (8.5-10.1); CREATININE SERUM 0.89 MG/DL (0.60-1.30); POTASSIUM 3.7 MMOL/L (3.6-5.0); TOTAL PROTEIN 6.6 GM/DL (6.4-8.2)
[2023-06-16 22:45] LABS: AMORPHOUS SEDIMENT,UR RARE AMOR URATES /LPF; BACTERIA,URINE TRACE /HPF; BILIRUBIN,URINE 1+ (NEGATIVE); CLARITY,URINE SLIGHTLY CLOUDY; COLOR,URINE YELLOW; GLUCOSE, URINE (UA) NEGATIVE (NEGATIVE); KETONES,URINE 1+ (NEGATIVE); LEUKOCYTE ESTERASE ,URINE NEGATIVE (NEGATIVE); NITRITE,URINE NEGATIVE (NEGATIVE); PROTEIN,URINE NEGATIVE (NEGATIVE)
[2023-06-16] MEDS: methylPREDNISolone INJ 125 MG VIAL IVP ONE (23:50)
[2023-06-17] MEDS: methylPREDNISolone INJ 125 MG VIAL IVP ONE ×2 (00:03→01:23)
[2023-06-17] MEDS ORDERED: methylPREDNISolone INJ 125 MG VIAL IVP ONE (07:15)
--- NOTE | 2023-06-17 08:05 | Diagnostic Imaging Report ---
PROCEDURE: CT head without contrast. TECHNIQUE: Multiple contiguous axial images were obtained through the brain without the use of intravenous contrast. Auto Exposure Controls were utilized during the CT exam to meet ALARA standards for radiation dose reduction. INDICATION: Altered mental status There is no mass, shift of midline or hemorrhage to suggest an acute intracranial abnormality. There is no sign of an asymmetric hyperdense vessel either. The ventricles are somewhat prominent but stable in size when compared to the prior exam of 01/31/2022. The senescent changes seen on the prior study including cortical atrophy. Periventricular encephalomalacia are again evident and no different. The bone windows show no evidence for fracture or for destructive lesion. The orbits are symmetrical and within normal limits. The sinuses were visualized are clear. Impression: 1. There is no evidence for an acute intracranial abnormality. 2. If clinical concern regarding an underlying abnormality persists, then MRI would be recommended for further study. 3. I agree with the [facility] interpretation of this exam. Dictated by: Dictated on workstation # [id number]
--- NOTE | 2023-06-17 08:21 | Diagnostic Imaging Report ---
CLINICAL INDICATION: Patient with fever. Patient has history of multiple sclerosis. EXAM: Portable chest x-ray upright view. COMPARISON: Chest x-ray dated 07/22/2022. FINDINGS: Lungs/pleura: Lungs are clear. There is no pneumothorax. There is no pleural effusion. Mediastinum: Unremarkable. Pulmonary vasculature: Unremarkable. Heart: Cardiac silhouette is upper limits of normal for portable projection. Bones/extrathoracic soft tissue: Unremarkable. IMPRESSION: There is no radiographic evidence of acute cardiopulmonary process. Dictated by: Dictated on workstation # [id number]
[2023-06-17 11:30] VITALS: BP 104/75
== END 2023-06-17 11:39 | disposition short-term general hospital (02) ==
LOC: EDUNIT# 21:38 → ER 21:39
DX: G35 Multiple sclerosis (principal); R50.9 Fever, unspecified
CPT/HCPCS: 36415; 51701; 70450; 71045; 80053; 81000; 82947; 83605; 83735; 85025; 85610; 85730; 87040; 87088; 87636; 96361; 96374; 96375